=== PATIENT | male | born 1950 | race Caucasian/White ===

== ENCOUNTER → 2017-12-02 10:19 | Outpatient (POV) | payer MEDICARE, OTHER, SELFPAY ==
[2017-12-02 10:37] VITALS: BP 124/85; PULSE 77; RESP 18; TEMP 36.4; O2SAT 96
--- NOTE | 2017-12-02 12:05 | HMH.PMCON ---
Assessment and Plan (1) Post laminectomy syndrome Current visit: Yes Status: Chronic Category: Medical Code(s): M96.1 - Postlaminectomy syndrome, not elsewhere classified (2) Degenerative joint disease (DJD) of lumbar spine Current visit: Yes Status: Chronic Category: Medical Code(s): M47.816 - Spondylosis without myelopathy or radiculopathy, lumbar region (3) Lumbar radiculopathy Current visit: Yes Status: Chronic Category: Medical Code(s): M54.16 - Radiculopathy, lumbar region (4) Degenerative joint disease of cervical spine Current visit: Yes Status: Chronic Category: Medical Code(s): M47.812 - Spondylosis without myelopathy or radiculopathy, cervical region - Assessment and plan all Dx Assessment and Plan for all problems:: Patient and I had a long discussion about potential therapies. I gave him information on both neuro stimulation and pain pump. I do believe her neurostimulator may be more beneficial for him due to the fact that he can cover both neck and back pain and leg pain. Patient states he wants to discuss this with Dr. Ware. Told the patient he is welcome to call us if he decides to move forward with either of these therapies Or has any questions. This note was dictated using voice recognition software and may contain errors or omissions HPI - Data of Consult Consult date: 12/02/17 Requesting Physician: Edyta Starr APRN Primary Care Provider: Gregorio Ware MD Family Provider: Referral Provider, MD - Consult Narrative Reason for consult: Back pain, right leg pain, neck pain History of present illness: Mr. Dave is a 67 year old male a for consultation for neck pain, low back pain right leg pain. Patient states the pain began gradually got worse after back surgery. Patient states that sitting in certain chairs increases pain while standing or walking decreases pain. Patient was seen by Dr. Carrero for pain management in the past. Dr. Russell plan of care included neuro stimulation. Patient states that he was told because he smokes there is only a 5% chance that neurostimulation would work. I tried to discuss this with the patient however he states he has read all of the information about stimulation and he is unsure if this is something he would like to look into. We also discussed the pain pump. Patient is unsure he wants to come off of his pain medication prior to this. Patient has states he has tried injective therapy in the past without any success. Patient currently being medically managed by his PCP with [place] 7.5 mg 1 p.o. 4 times daily. Patient states that this does not help much. Patient rates his pain a 7 out of 10 today stating that it is constant. CC: Edyta Starr APRN [facility] History I have reviewed the patient's past medical history: Yes Medical History: Reports:: Hypertension Denies:: Cancer, Diabetes Mellitus Type 1, Diabetes Mellitus Type 2, MRSA Other Medical History: Reports: Arthritis Other Surgeries: Yes: Cardiac Catheterization Amputation: No Fractures: No - *Social History Educational Level: Completed High School Smoking Status: Never smoker Tobacco Type: cigarettes Alcohol Intake: never Occupational Status: retired Housing: house Household Members: spouse - Psychiatric History Expresses thoughts of harming self/others: None Suicide Plan Description: No Plan *Family Hx:: Cancer, Hyperlipidemia, Hypertension Review of Systems - Review of Systems ROS General: no recent weight change, no fever, no sleep disturbances Respiratory: no cough, no shortness of air, no recurring pulmonary infections Cardiovascular/Peripheral Vascular: No chest pain, No palpitations, no edema, no shortness of breath. Gastrointestinal: no incontinence, normal bowel movements reported Genitourinary: no incontinence Musculoskeletal: Back pain, right leg pain, neck pain Psychiatric: normal mood/ affect, Neurological: [denies weakness in
--- NOTE | 2017-12-02 12:11 | P.CONS_ITS ---
Assessment and Plan (1) Post laminectomy syndrome Current visit: Yes Status: Chronic Category: Medical Code(s): M96.1 - Postlaminectomy syndrome, not elsewhere classified (2) Degenerative joint disease (DJD) of lumbar spine Current visit: Yes Status: Chronic Category: Medical Code(s): M47.816 - Spondylosis without myelopathy or radiculopathy, lumbar region (3) Lumbar radiculopathy Current visit: Yes Status: Chronic Category: Medical Code(s): M54.16 - Radiculopathy, lumbar region (4) Degenerative joint disease of cervical spine Current visit: Yes Status: Chronic Category: Medical Code(s): M47.812 - Spondylosis without myelopathy or radiculopathy, cervical region - Assessment and plan all Dx Assessment and Plan for all problems:: Patient and I had a long discussion about potential therapies. I gave him information on both neuro stimulation and pain pump. I do believe her neurostimulator may be more beneficial for him due to the fact that he can cover both neck and back pain and leg pain. Patient states he wants to discuss this with Dr. Ware. Told the patient he is welcome to call us if he decides to move forward with either of these therapies Or has any questions. This note was dictated using voice recognition software and may contain errors or omissions HPI - Data of Consult Consult date: 12/02/17 Requesting Physician: Edyta Starr APRN Primary Care Provider: Gregorio Ware MD Family Provider: Referral Provider, MD - Consult Narrative Reason for consult: Back pain, right leg pain, neck pain History of present illness: Mr. Dave is a 67 year old male a for consultation for neck pain, low back pain right leg pain. Patient states the pain began gradually got worse after back surgery. Patient states that sitting in certain chairs increases pain while standing or walking decreases pain. Patient was seen by Dr. Carrero for pain management in the past. Dr. Russell plan of care included neuro stimulation. Patient states that he was told because he smokes there is only a 5% chance that neurostimulation would work. I tried to discuss this with the patient however he states he has read all of the information about stimulation and he is unsure if this is something he would like to look into. We also discussed the pain pump. Patient is unsure he wants to come off of his pain medication prior to this. Patient has states he has tried injective therapy in the past without any success. Patient currently being medically managed by his PCP with [place] 7.5 mg 1 p.o. 4 times daily. Patient states that this does not help much. Patient rates his pain a 7 out of 10 today stating that it is constant. CC: Edyta Starr APRN [facility] History I have reviewed the patient's past medical history: Yes Medical History: Reports:: Hypertension Denies:: Cancer, Diabetes Mellitus Type 1, Diabetes Mellitus Type 2, MRSA Other Medical History: Reports: Arthritis Other Surgeries: Yes: Cardiac Catheterization Amputation: No Fractures: No - *Social History Educational Level: Completed High School Smoking Status: Never smoker Tobacco Type: cigarettes Alcohol Intake: never Occupational Status: retired Housing: house Household Members: spouse - Psychiatric History Expresses thoughts of harming self/others: None Suicide Plan Description: No Plan *Family Hx:: Cancer, Hyperlipidemia, Hypertension Review of Systems - Review of Systems ROS General: no recent weight change, no fever, no sleep disturbances Respiratory: no cough, no shortness of air
== END ==
PROVIDERS: PCP Internal Medicine Adolescent Medicine; Visit Provider Clinical Nurse Specialist Family Health
DX: M47.816 Spondylosis without myelopathy or radiculopathy, lumbar region (principal)
CPT/HCPCS: 99202

== ENCOUNTER 2018-09-23 09:00 | Outpatient (RCR) | payer MEDICARE, OTHER, SELFPAY | END 2018-09-23 09:05 | disposition home or self-care (01) | LOC: OT 09:00 | PROVIDERS: Visit Provider Orthopaedic Surgery Hand Surgery | DX: M47.816 Spondylosis without myelopathy or radiculopathy, lumbar region (principal); M96.1 Postlaminectomy syndrome, not elsewhere classified | CPT/HCPCS: 97035; 97110; 97140; 97165 ==

== ENCOUNTER → 2018-10-07 10:38 | Outpatient (CLI) | payer MEDICARE, OTHER, SELFPAY ==
--- NOTE | 2018-10-07 10:43 | CT_ITS ---
CT lung screening EXAM: CT LUNG LOW DOSE WO CONTRAST HISTORY: 100 pack-year smoking history, asymptomatic for lung cancer ITS.REASON: H/O TOBACCO DEPENDENCE ORDERING PHYSICIAN: Gregorio Ware MD PATIENT AGE: 68 years COMPARISON: 06/15/2016 TECHNIQUE: The exam was performed on a GE Light Speed [address] scanner using 2.90 mGy CTDI. A low dose helical CT CHEST was performed on a multi-detector scanner. All CT scans at the facility use one or more dose reduction, viz: automated exposure control, ma/kV adjustment per patient size (including targeted exams where dose is matched to indication, i.e. head), or iterative reconstruction technique. The LDCT was performed in a facility that meets the criteria for the screening program. Data regarding this exam was submitted to ACR which is an approved registry. The order for this exam indicates that it came as a result of a lung cancer screening counseling shard decision-making visit that included all the elements required of such a visit including smoking cessation. The radiologist interpreting this exam meets the CMS criteria for the LDCT lung cancer screening program. The exam is reported using the Lung-RADS classification scale and reported to the ACR registry. NOTE: This study was performed for the specific purposes of lung cancer screening and is not an alternative to diagnostic chest CT. RADIATION DOSE: CTDI vol(CT dose Index-volume) = 2.90mG DLP (Dose Length Product) = 119.20 mGcm FINDINGS: Hyperinflation with attenuation of the peripheral pulmonary vessels consistent with obstructive chronic bronchitis. Nodules within the right minor fissure similar to the previous exam. A stable subpleural nodules present within the lingula at 5 mm. No new nodules are evident. Coronary artery calcifications are noted.. IMPRESSION: 1. Lung RADS Category: 2, benign 2. Other findings: Coronary artery calcifications, COPD RECOMMENDATIONS: 12 month LDCT follow-up
== END ==
PROVIDERS: PCP Internal Medicine Adolescent Medicine; Visit Provider Internal Medicine Adolescent Medicine
DX: Z12.2 Encounter for screening for malignant neoplasm of respiratory organs (principal); Z87.891 Personal history of nicotine dependence

== ENCOUNTER → 2019-10-09 08:02 | Outpatient (CLI) | payer MEDICARE, OTHER, SELFPAY ==
--- NOTE | 2019-10-09 08:06 | CT_ITS ---
PROCEDURE: CT LUNG SCREENING CLINICAL INDICATION: CURRENT TOBACCO USE COMPARISON: No exams were available for comparison TECHNIQUE: The exam was performed on a GE Light Speed [address] scanner using 2.90 mGy CTDI. A low dose helical CT CHEST was performed on a multi-detector scanner. All CT scans at the facility use one or more dose reduction, viz: automated exposure control, ma/kV adjustment per patient size (including targeted exams where dose is matched to indication, i.e. head), or iterative reconstruction technique. The LDCT was performed in a facility that meets the criteria for the screening program. Data regarding this exam was submitted to ACR which is an approved registry. The order for this exam indicates that it came as a result of a lung cancer screening counseling shard decision-making visit that included all the elements required of such a visit including smoking cessation. The radiologist interpreting this exam meets the CMS criteria for the LDCT lung cancer screening program. The exam is reported using the Lung-RADS classification scale and reported to the ACR registry. NOTE: This study was performed for the specific purposes of lung cancer screening and is not an alternative to diagnostic chest CT. RADIATION DOSE: CTDI vol(CT dose Index-volume) = 2.90mG DLP (Dose Length Product) = 112.29 mGcm Lung Rads Category: Three FINDINGS: There is a calcified granuloma in the left upper lobe compatible with healed granulomatous disease. There are scattered noncalcified pulmonary nodules largest 1 in the anterior right lung base is 6.6 millimeters as seen on image 52 series 4. The noncalcified nodules could represent granulomas. Neoplastic disease is not excluded. There are some densities in the inferior lingula which are likely scarring. OTHER FINDINGS: There is atherosclerosis including coronary calcification. There is fatty infiltration of the liver. IMPRESSION: Lung rads score 3 probably benign six-month low-dose CT follow-up is recommended. Dictated by: Mega Braden 10/10/2019 10:58 Electronically signed by Mega Braden in [place] 10/10/2019 10:58
== END ==
PROVIDERS: PCP Internal Medicine Adolescent Medicine; Visit Provider Internal Medicine Adolescent Medicine
DX: Z87.891 Personal history of nicotine dependence (principal); Z12.2 Encounter for screening for malignant neoplasm of respiratory organs

== ENCOUNTER → 2020-04-13 12:45 | Outpatient (CLI) | payer MEDICARE, OTHER, SELFPAY ==
--- NOTE | 2020-04-13 12:57 | CT_ITS ---
PROCEDURE: CT CHEST W CON CLINCAL INDICATION: PULMONARY NODULE PULMONARY NODULE CURRENT SMOKER COMPARISON: CT CT LUNG SCREENING from 10/09/2019 TECHNIQUE: IV Contrast: 75ml Optiray 350 Axial images obtained with sagittal and coronal reformats. All CT scans at the facility use one or more dose reduction, viz: automated exposure control, ma/kV adjustment per patient size (including targeted exams where dose is matched to indication, i.e. head), or iterative reconstruction technique. FINDINGS: There is mild ectasia of the descending thoracic aorta at 3 cm. No mediastinal or hilar mass or adenopathy. There are coronary artery calcifications. COPD changes. 6 mm noncalcified nodule is noted along the right minor fissure anteriorly not significantly changed. Additional 5 mm nodules present in the same area slightly medial to the 6 mm nodule. No new nodules are evident. A 3 mm noncalcified nodules present in the right upper lobe unchanged. No new nodules are evident. No effusions or infiltrates. No acute bony findings. Upper abdominal images are unremarkable. IMPRESSION: Overall stable CT appearance of the chest. No change in the small pulmonary nodules. Recommend continued LDCT in 1 year. Dictated by: David Copeland MD 04/14/2020 10:20 David Copeland MD in [place] 04/14/2020 10:20
[2020-04-13 13:30] LABS: Blood Urea Nitrogen 11 mg/dl (9-20); Estimated Glomerular Filt Rate 54 ml/min (>60); GFR (African American) 66 ML/MIN (>60)
== END ==
PROVIDERS: PCP Internal Medicine Adolescent Medicine; Visit Provider Internal Medicine Adolescent Medicine
DX: R91.1 Solitary pulmonary nodule (principal)
CPT/HCPCS: 36415; 71260; 82565; 84520; Q9967

== ENCOUNTER → 2020-10-17 09:42 | Outpatient (CLI) | payer MEDICARE, OTHER, SELFPAY ==
--- NOTE | 2020-10-17 09:47 | MR_ITS ---
PROCEDURE: MR LUMBAR SPINE WO/W CON CLINICAL INDICATION: LUMBAR NEURALGIA HX 3 BACK SURGERIES-LAST ONE IN 2000. RT LEG AND HIP PAIN. NEW ONSET OF INTERMITTENT LT LEG AND FOOT PAIN. LT SIDED BACK PAIN. 20ML PROHANCE GIVEN. LOT:[id number] EXP: OCT 2022 BUN:11 CRE:1.3 GFR:54 PRIOR MRI 11-03-15 COMPARISON: MR [facility] MRI-L-SPINE W/WO from 11/03/2015 MR [facility] MRI-BRAIN W/WO from 06/14/2016 TECHNIQUE: Standard multiplanar multiecho sequences are performed without and with contrast. 3-D MIP and myelographic images are also rendered and reviewed FINDINGS: There is normal alignment. The spinal cord ends at the L1-L2 level. T11-T12, T12-L1, L1-L2, and L2-L3 show mild degenerative disc disease. There is mild facet hypertrophic change at L2-L3 with mild left lateral recess narrowing. This is not significantly changed. L3-L4: Degenerative disc disease with minimal bulging disc with facet and ligamentum hypertrophy with mild bilateral lateral recess and foraminal narrowing not significantly changed. L4-5: There is a small left paracentral disc protrusion/herniation. There is severe facet and ligamentum hypertrophy with canal stenosis. There is severe left lateral recess narrowing and moderate bilateral foraminal narrowing from facet and ligamentum hypertrophy. The degree of canal stenosis appears worse than when compared to the previous exam. The left paracentral disc protrusion may be slightly larger. L5-S1: Postsurgical changes with inter pedicular screws are present with considerable artifact obscuring fine detail of the disc space. No abnormal enhancement. No convincing evidence of epidural fibrosis or arachnoiditis IMPRESSION: 1. Multilevel lumbar spondylosis. Please see above for detailed description at each level. 2. L3-L4: Degenerative disc disease with minimal bulging disc with facet and ligamentum hypertrophy with mild bilateral lateral recess and foraminal narrowing not significantly changed. 3. L4-5: There is a small left paracentral disc protrusion/herniation. There is severe facet and ligamentum hypertrophy with canal stenosis. There is severe left lateral recess narrowing and moderate bilateral foraminal narrowing from facet and ligamentum hypertrophy. The degree of canal stenosis appears worse than when compared to the previous exam. The left paracentral disc protrusion may be slightly larger. 4. L5-S1: Postsurgical changes with inter pedicular screws are present with considerable artifact obscuring fine detail of the disc space. 5. No abnormal enhancement. No convincing evidence of epidural fibrosis or arachnoiditis Dictated by: David Copeland MD 10/20/2020 08:01 David Copeland MD in [place] 10/20/2020 08:01
== END ==
PROVIDERS: PCP Internal Medicine Adolescent Medicine; Visit Provider Internal Medicine Adolescent Medicine
DX: M54.16 Radiculopathy, lumbar region (principal)
CPT/HCPCS: 72158; 76376; A9576

== ENCOUNTER → 2020-10-28 10:57 | Outpatient (POV) | payer MEDICARE, OTHER, SELFPAY ==
[2020-10-28 11:51] VITALS: BP 164/90; PULSE 113; RESP 20; TEMP 36.4; O2SAT 100; BMI 27.6
--- NOTE | 2020-10-28 13:19 | HMH.PMCON ---
Assessment and Plan (1) Post laminectomy syndrome Status: Chronic Category: Medical Code(s): M96.1 - Postlaminectomy syndrome, not elsewhere classified (2) Degenerative joint disease (DJD) of lumbar spine Status: Chronic Category: Medical Code(s): M47.816 - Spondylosis without myelopathy or radiculopathy, lumbar region (3) Lumbar radiculopathy Status: Chronic Category: Medical Code(s): M54.16 - Radiculopathy, lumbar region - Assessment and plan all Dx Assessment and Plan for all problems:: We will plan on intrathecal pump trial next week. I will have him wean down on his [place] he is not to have any [place] 48 hours prior to the trial. We will obtain psychological evaluation as soon as possible. He is leaving for [place] in a couple weeks so we will plan on intrathecal pump trial prior to his psychological evaluation. I talked about the risk and benefits of this patient. I do believe he would be a good candidate for intrathecal therapy. HPI - Data of Consult Patient: new to practice Consult date: 10/28/20 Requesting Physician: Carlos Arizmendi MD Primary Care Provider: Gregorio Ware MD - Consult Narrative Reason for consult: Low back pain History of present illness: Mr. Dave is a 70 year old male who we are seeing for increasing low back pain. He has had 3 previous back surgeries. He has had injections with no relief. He is not on any narcotic medications. He has taken gabapentin and Lyrica both of which have not helped. He has basically failed all previous conservative treatments. Given his symptoms where most of his pain is in the back with very little radicular symptoms I do believe he would be a good candidate for intrathecal therapy. He is currently on [place] 4 times a day. I talked to him about weaning down his [place] in preparation for intrathecal pump trial. CC: Carlos Arizmendi MD [facility] History I have reviewed the patient's past medical history: Yes Medical History: Reports:: Hypertension Denies:: Cancer, Diabetes Mellitus Type 1, Diabetes Mellitus Type 2, Internal Pacemaker, Lung Disease, MRSA, Seizures *Have you ever received a pneumonia vaccine?: Yes *Have you received a flu vaccine this season?: Yes Other Medical History: Reports: Arthritis. Denies: Blood Transfusion Reaction Other Surgeries: Yes: Cardiac Catheterization, Other (left hand). No: Pacemaker Amputation: No Fractures: No - *Social History Smoking Status: Current every day smoker Tobacco Type: cigarettes # Packs/Day (cigarettes): 2 Alcohol Intake: never Substance Use Type: denies use *Occupational Status:: retired Housing: house Household Members: other *Travel in the last 8 weeks: None Family Hx:: Cancer, Hyperlipidemia, Hypertension Review of Systems - Review of Systems Review of systems:: pertinent systems reviewed and negative unless documented below - *Musculoskeletal Reports back pain, Reports numbness, Reports radiating pain into limb, Reports stiffness Meds Home Medications Medication Instructions Recorded Confirmed Type Baclofen 20 mg PO TID 12/02/17 10/28/20 History Hydrocodone/Acetaminophen 1 each PO QID 12/02/17 10/28/20 History [Hydrocodon-Acetaminoph 7.5-325] Levothyroxine Sodium 125 mcg PO DAILY 12/02/17 10/28/20 History [Levothyroxine 200mcg (0.2mg) Tab] Omeprazole [Omeprazole 20mg Tab] 20 mg PO DAILY 12/02/17 10/28/20 History Tamsulosin HCl [Flomax 0.4mg 0.4 mg PO HS 12/02/17 10/28/20 History capsule] lisinopriL [Lisinopril 20mg Tab] 20 mg PO DAILY 12/02/17 10/28/20 History Allergies Allergy/AdvReac Type Severity Reaction Status Date / Time morphine Allergy Intermediate I-ITCHING Verified 10/28/20 11:52 duloxetine [From Cymbalta] AdvReac Verified 10/28/20 11:52 gabapentin AdvReac Verified 10/28/20 11:52 pregabalin [From Lyrica] AdvReac Verified 10/28/20 11:52 Objective Vital signs: Temp Pulse Resp BP Pulse Ox 97.6 F 113 H 20 164/90 H 100 10/28/20 11
== END ==
PROVIDERS: PCP Internal Medicine Adolescent Medicine; Visit Provider Anesthesiology
DX: M96.1 Postlaminectomy syndrome, not elsewhere classified (principal); M47.896 Other spondylosis, lumbar region; M54.16 Radiculopathy, lumbar region
CPT/HCPCS: 99202; G0463

== ENCOUNTER → 2020-11-04 08:19 | Day surgery (SDC) | payer MEDICARE, OTHER, SELFPAY ==
[2020-11-04] VITALS (9 sets, daily range): BP systolic 123–188; BP diastolic 66–93; PULSE 89–115; RESP 18–22; TEMP 36.1; O2SAT 96–99; BMI 27.6
--- NOTE | 2020-11-04 09:48 | HMH.PMPROC ---
- Procedure Date: 11/04/20 Time: 09:49 Anesthesiologist:: Carlos Arizmendi MD Complications:: None Pre-procedure Diagnosis:: Postlaminectomy syndrome lumbar spine with lumbar radiculopathy symptoms and degenerative disc disease of lumbar spine Post-procedure Diagnosis:: Same Indications for Procedure:: The patient is a pleasant 70-year-old white male who we are treating for low back pain with lumbar radiculopathy symptoms and degenerative disc disease of lumbar spine with postlaminectomy syndrome lumbar spine. He has failed all previous conservative therapy including previous surgery, physical therapy, injections and oral medications. He has weaned down on his [place]. He presents for intrathecal pump trial today. We are also getting a psychological evaluation on him. Procedure Details:: Pain pump trial Informed consent was obtained and the risk and benefits of the procedure was explained to the patient. The patient was taken to the procedure room and placed prone on the procedure table. Patient was prepped and draped in sterile fashion. C-arm fluoroscopy was used to view the lumbar spine. The skin and subcutaneous tissues were anesthetized using lidocaine. I placed a 18-gauge spinal needle into the L4-5 interspace and advanced until clear CSF was obtained. After this intrathecal catheter was inserted and advanced very easily to the L1 vertebral body. The needle was withdrawn. We were able to freely withdraw clear CSF through the catheter. We then injected intrathecal fentanyl single shot bolus of 25 mcg followed by saline and followed by the previous CSF that was withdrawn. The needle and catheter were then removed and a Band-Aid was placed. Patient tolerated the procedure well with no complications. We reevaluated the patient after 30 minutes to 1 hour. He was also reassessed by physical therapy. Patient did well with his pain he was 70 to 80% better. Also functionality improved physical therapy assessments were much improved. Patient is leaving for [place] next week he wants to think about permanent placement we will follow-up with him when he returns from [place]. Plan and Disposition:: Patient did very well. He is leaving for [place] next week. He wants to think about whether to proceed with permanent placement. We will follow-up with him when he returns from [place].
--- NOTE | 2020-11-04 11:22 | PC.NURSE ---
0900-PT at bedside for evaluation 0940-pt returned from procedure room via w/c, accompanied by nursing staff. pt assisted to chair. VSS, c/o pain 7 on scale of 0-10. offered pt PO fluids, pt agreeable. pt also requested something for itching. see emar for medications given. 0955-pt resting in chair. VSS, tolerating PO intake without complaints. rates pain 5 on scale 0-10 1010-pt resting in chair. VSS, rates pain 5 on scale of 0-10. states itching has eased. no needs or concerns at this time. 1030-pt resting in chair. VSS, rates pain 4 on scale of 0-10. no needs or concerns at this time. 1050-pt resting in choco. VSS, rates pain 4 on scale of 0-10. no needs or concerns at this time 1056-PT at bedside for evaluation 1100-Dr Arizmendi at bedside.
== END ==
PROVIDERS: PCP Internal Medicine Adolescent Medicine; Visit Provider Anesthesiology
DX: M96.1 Postlaminectomy syndrome, not elsewhere classified (principal); M51.16 Intervertebral disc disorders with radiculopathy, lumbar region; I10 Essential (primary) hypertension; N40.0 Benign prostatic hyperplasia without lower urinary tract symptoms; K21.9 Gastro-esophageal reflux disease without esophagitis; E03.9 Hypothyroidism, unspecified
CPT/HCPCS: 62323; 96365

== ENCOUNTER → 2020-12-13 11:20 | Outpatient (CLI) | payer MEDICARE, OTHER, SELFPAY ==
[2020-12-13 11:52] LABS: Basophils % 0.5 % (0.1-2.0); Eosinophils # 0.1 K/mm3 (0.0-0.4); Eosinophils % 1.5 % (0.1-12.0); Hematocrit 42.8 % (42.0-52.0); Hemoglobin 14.5 g/dL (14.1-18.0); Lymphocytes # 1.8 K/mm3 (0.7-4.5); Lymphocytes % 27.8 % (10-50); Mean Corpuscular HGB Conc 33.9 g/dL (31.8-35.4); Mean Corpuscular Hemoglobin 32.8 pg (27.0-31.2); Mean Corpuscular Volume 96.8 fl (80-94); Mean Platelet Volume 7.8 fl (7.4-10.4); Monocytes # 0.4 K/mm3 (0.1-1.0); Monocytes % 5.7 % (1.7-9.3); Neutrophils # 4.1 K/mm3 (1.8-7.8); Neutrophils % 64.4 % (37.0-80.0); Platelet Count 208 K/mm3 (142-424); Red Blood Count 4.42 M/mm3 (4.60-6.20); Red Cell Distribution Width 13.4 % (11.5-17.5); White Blood Count 6.3 K/mm3 (4.8-10.8)
[2020-12-13 12:07] LABS: Chloride 99 mmol/L (98-107); Potassium 4.5 mmoL/L (3.5-5.1); Sodium 137 mmol/L (136-145)
[2020-12-13 12:10] LABS: Anion Gap 16.5 mEq/L (5-15); Blood Urea Nitrogen 12 mg/dl (9-20); Carbon Dioxide 26 mmol/L (22.0-30.0); Estimated Glomerular Filt Rate 66 ml/min (>60); GFR (African American) 80 ML/MIN (>60)
[2020-12-13 12:11] LABS: Calcium 10.2 mg/dl (8.4-10.2); Glucose 131 mg/dl (74-100)
[2020-12-13 12:15] LABS: Barbiturates Screen,Urine Negative ng/ml (<200); Benzodiazepines Screen,Urine Negative ng/ml (<200)
[2020-12-13 12:16] LABS: Amphetamine/Metha Screen,Urine Negative ng/ml (<1000)
[2020-12-13 12:17] LABS: Methadone Screen,Urine Negative ng/ml (<300)
[2020-12-13 12:18] LABS: Cannabinoid Screen,Urine Negative ng/ml (<50); Cocaine Screen,Urine Negative ng/ml (<300)
[2020-12-13 12:19] LABS: Opiate Screen,Urine Positive ng/ml (<300)
[2020-12-13 12:20] LABS: Phencyclidine Screen,Urine Negative ng/ml (<25)
[2020-12-13 12:27] LABS: Coronavirus 19 IgG Antibody Positive (Negative); Coronavirus 19 IgM Antibody Negative (Negative)
== END ==
PROVIDERS: Visit Provider Anesthesiology
DX: Z01.812 Encounter for preprocedural laboratory examination (principal); Z20.822 Contact with and (suspected) exposure to COVID-19; M51.36 Other intervertebral disc degeneration, lumbar region
CPT/HCPCS: 36415; 80048; 80305; 85025; 86328

== ENCOUNTER 2020-12-14 08:24 | Day surgery (SDC) | payer MEDICARE, OTHER, SELFPAY ==
[2020-12-13 09:43] VITALS: BMI 27.6
[2020-12-14] VITALS (7 sets, daily range): BP systolic 95–134; BP diastolic 48–86; PULSE 79–97; RESP 16–18; TEMP 36.3–36.7; O2SAT 95–99
--- NOTE | 2020-12-14 10:10 | HMH.PMCON ---
Assessment and Plan - Assessment and plan all Dx Assessment and Plan for all problems:: Impression-degenerative disc disease of the lumbar spine with radiculopathy Plan-placement of intrathecal pain pump system today HPI - Data of Consult Patient: new to practice Consult date: 12/14/20 Requesting Physician: Carlos Arizmendi MD Primary Care Provider: Gregorio Ware MD - Consult Narrative Reason for consult: Disc disease of the lumbar spine with radiculopathy History of present illness: Mr. Dave is a 70 year old male 70-year-old white male with chronic back issues has had back surgery. Patient had a intrathecal pain pump trial with significant improvement and comes in today for placement of that system CC: Carlos Arizmendi MD Back pain [facility] History I have reviewed the patient's past medical history: Yes Medical History: Reports:: Hypertension Denies:: Cancer, Diabetes Mellitus Type 1, Diabetes Mellitus Type 2, Internal Pacemaker, Lung Disease, MRSA, Seizures *Have you ever received a pneumonia vaccine?: Yes *Have you received a flu vaccine this season?: Yes Other Medical History: Reports: Arthritis. Denies: Blood Transfusion Reaction Other Surgeries: Yes: Cardiac Catheterization, Other (left hand). No: Pacemaker Amputation: No Fractures: No Comment: Back surgery x3, left hand surgery - *Social History Last grade of school completed: High school graduate Smoking Status: Current every day smoker Tobacco Type: cigarettes # Packs/Day (cigarettes): 2 Alcohol Intake: never Substance Use Type: denies use *Occupational Status:: retired Housing: house Household Members: spouse *Travel in the last 8 weeks: None Family Hx:: Cancer, Hyperlipidemia, Hypertension Meds Home Medications Medication Instructions Recorded Confirmed Type Baclofen 20 mg PO TID 12/02/17 12/14/20 History Hydrocodone/Acetaminophen 1 each PO QID 12/02/17 12/14/20 History [Hydrocodon-Acetaminoph 7.5-325] Levothyroxine Sodium 125 mcg PO DAILY 12/02/17 12/14/20 History [Levothyroxine 200mcg (0.2mg) Tab] Omeprazole [Omeprazole 20mg Tab] 20 mg PO DAILY 12/02/17 12/14/20 History Tamsulosin HCl [Flomax 0.4mg 0.4 mg PO HS 12/02/17 12/14/20 History capsule] lisinopriL [Lisinopril 20mg Tab] 20 mg PO DAILY 12/02/17 12/14/20 History Allergies Allergy/AdvReac Type Severity Reaction Status Date / Time morphine Allergy Intermediate I-ITCHING Verified 12/13/20 09:43 duloxetine [From Cymbalta] AdvReac Verified 12/13/20 09:43 gabapentin AdvReac Verified 12/13/20 09:43 pregabalin [From Lyrica] AdvReac Verified 12/13/20 09:43 Objective Vital signs: Temp Pulse Resp BP Pulse Ox 97.3 F L 97 H 16 134/67 98 12/14/20 09:16 12/14/20 09:16 12/14/20 09:16 12/14/20 09:16 12/14/20 09:16
--- NOTE | 2020-12-14 10:45 | P.PN_ITS ---
[facility] Anesthesia Checklist - Patient Identification Patient Identification: Arm Band - Structural Data Admitted From: Home Planned Operative Procedure/s: Intracthecal Pain Pump Catheter and Generator Placement Consent for Planned Operative Procedure(s) Verified: Yes Verified Documents: Surgical Consent, History and Physical - NPO Status Verified Time NPO: 00:00 - Additional verifications Anesthesia Reactions: No Hx Blood Transfusions: No Blood Transfusion Reaction: No - Airway Assessment C-Spine Mobility Assessed: Yes (mp2) TMJ Mobility Assessed: Yes Dentition: Good Dentition (upper dentures) - Neurological Assessment Level of Consciousness: Awake, Alert - Anesthesia Plan Anesthesia Risk discussed: Yes Anesthesia Plan: Verified ASA Class: II Anesthesia Type: MAC [facility] History I have reviewed the patient's past medical history: Yes Medical History: Reports:: Gastroesophageal Reflux Disease(GERD), Hypertension Denies:: Cancer, Diabetes Mellitus Type 1, Diabetes Mellitus Type 2, Internal Pacemaker, Lung Disease, MRSA, Seizures *Have you ever received a pneumonia vaccine?: Yes *Have you received a flu vaccine this season?: Yes Other Medical History: Reports: Arthritis, Hypothyroidism. Denies: Blood Transfusion Reaction Anesthesia experience/problems:: nac Other Surgeries: Yes: Cardiac Catheterization, Other (left hand). No: Pacemaker Amputation: No Fractures: No - *Social History Last grade of school completed: High school graduate Smoking Status: Current every day smoker Tobacco Type: cigarettes # Packs/Day (cigarettes): 2 Alcohol Intake: never Substance Use Type: denies use *Occupational Status:: retired Housing: house Household Members: spouse *Travel in the last 8 weeks: None Family Hx:: Cancer, Hyperlipidemia, Hypertension
--- NOTE | 2020-12-14 12:25 | P.OP_ITS ---
Date of procedure: 12/14/20 Pre-op Diagnosis:: Degenerative disc disease of the lumbar spine with radiculopathy Post-op Diagnosis:: Same Procedure performed:: Placement of pain pump generator Surgeon:: Skyler Orta MD DIRECTOR OF COMMUNITY EDUCATION:: Clement Paz, Gregorio Basilio, Jorge Kang, Reza Rogers, Other Anesthesia: MAC Estimated blood loss (mL): 5 Operative findings:: Not applicable Operative note:: Patient was placed prone on the operating table and his back and flank regions were prepped and draped in sterile fashion. Paraspinal incision was made by Dr. Villalpando which an intrathecal catheter was passed into the intrathecal space to the area desired by Dr. Lewis. The catheter was sutured to the paraspinal fascia with fixation devices and 2-0 Prolene suture. A right flank incision was made in which made for pocket for placement of the reservoir. Both incisions irrigated with antibiotic solution. The catheter was passed from the paraspinal incision to the pocket incision utilizing a tunneling device. The catheter was connected to the generator and placed in the pocket. CSF was aspirated from the generator noting patency of the system. Subcutaneous tissues closed with 2-0 Vicryl. Skin closed with stitches of 4-0 nylon. Wound VAC dressing and a binder applied to the wound. The patient tolerated procedure well was taken to recovery room in stable condition. Upon recovery the patient will be discharged home with follow-up 1 week for removal of the wound VAC system and in 2 weeks for removal of the sutures. Antibiotic x1 week per protocol. The patient again tolerated the procedure well Condition: stable Disposition: PACU Complications:: None
--- NOTE | 2020-12-14 12:42 | P.OP_ITS ---
Date of procedure: 12/14/20 Pre-op Diagnosis:: Postlaminectomy syndrome of lumbar spine with lumbar radiculopathy symptoms and degenerative disc disease of lumbar spine Post-op Diagnosis:: Same Procedure performed:: Intrathecal catheter placement with tunneling for permanent intrathecal pain pump Surgeon:: Carlos Arizmendi MD [employer] PLAN SALESPERSON:: Other Anesthesia: MAC Estimated blood loss (mL): 5 Clinical Note:: Patient is a pleasant 70-year-old white male who we are treating for low back pain with lumbar radiculopathy symptoms and degenerative disc disease of lumbar spine with postlaminectomy syndrome. He has had a previous fusion of L5 and S1. He continues have increasing back pain with some leg pain. He has failed all previous conservative therapy including injections, oral medications, physical therapy and previous surgery. He is weaned off of his oral Wesley. He had a successful psychological evaluation and a successful intrathecal pump trial. He presents for permanent placement today. Operative findings:: None Operative note:: Informed consent was obtained and the risk and benefits of the procedure was explained to the patient. Patient was taken to the operating room placed prone on the procedure table. He was prepped and draped in sterile fashion. C-arm fluoroscopy was used to view the lumbar spine. The skin and subcutaneous tissues adjacent to the L4-5 interspace were anesthetized using lidocaine. I made an incision and dissected down to the lumbar paraspinous fascia. A 14-g auge spinal needle was inserted and advanced into the L4-5 interspace until clear CSF was obtained. After this intrathecal catheter was inserted and advanced very easily to the T12 vertebral body. The stylette of the catheter and the needle were withdrawn. The catheter was secured to the fascia with 2 anchoring devices and 2-0 Prolene. I prepared the pump with 20 mL of intrathecal Dilaudid 1 mg/mL while Dr. Orta prepared the pump pocket. I tunneled the catheter from the back to the pump pocket and attached catheter to the pump. The pump was placed in the pocket. We were able to freely withdraw clear CSF through the side-port. Both incisions were irrigated with bacitracin and then closed with 2-0 Vicryl followed by 4-0 nylon. A wound VAC was placed over both incisions. The patient was placed in an abdominal binder and taken recovery in stable condition. Patient tolerated the procedure well with no complications. Pump was interrogated and started at 0.1 mg/day of intrathecal Dilaudid. Patient was discharged home neurologically intact and with good relief of pain symptoms. Plan and disposition: We will follow-up with this patient in 1 week for wound check. We will follow-up in 2 weeks for suture removal and adjustment of intrathecal infusion if needed. If he has any problems or questions he is to call us back in the pain clinic. Condition: stable Disposition: PACU Complications:: None
--- NOTE | 2020-12-14 14:39 | SUR.PHASEII ---
1250: pt. is combative, unaware of his actions. Call to Carmelita Martinez CRNA ordered 1 mg versed IV now.
== END 2020-12-14 14:10 | disposition home or self-care (01) ==
LOC: OR 08:25
PROVIDERS: PCP Internal Medicine Adolescent Medicine; Visit Provider Anesthesiology
DX: M96.1 Postlaminectomy syndrome, not elsewhere classified (principal); M51.16 Intervertebral disc disorders with radiculopathy, lumbar region; I10 Essential (primary) hypertension; M19.90 Unspecified osteoarthritis, unspecified site; Z87.39 Personal history of other diseases of the musculoskeletal system and connective tissue; Z72.0 Tobacco use; Z79.899 Other long term (current) drug therapy; Z88.5 Allergy status to narcotic agent; Z88.8 Allergy status to other drugs, medicaments and biological substances
CPT/HCPCS: 62350; 62362; 96374; C1755; C1772; J3370

== ENCOUNTER → 2020-12-22 09:08 | Outpatient (POV) | payer MEDICARE, OTHER, SELFPAY ==
[2020-12-22 09:33] VITALS: BP 130/61; PULSE 65; RESP 18; TEMP 36.8; O2SAT 98; BMI 27.6
--- NOTE | 2020-12-22 09:47 | HMH.PMPROC ---
- Procedure Date: 12/22/20 Time: 09:47 Anesthesiologist:: Edyta Starr APRN Complications:: None Pre-procedure Diagnosis:: Postlaminectomy syndrome lumbar spine lumbar radiculopathy symptoms and degenerative disc disease lumbar spine Post-procedure Diagnosis:: Same Indications for Procedure:: Patient is a pleasant 70-year-old white male who presents today for intrathecal pain pump adjustment. Patient had his intrathecal pain pump placed 1 week ago. Since then his prior prostate issues has gotten worse. Patient is having some urinary difficulty. Patient is currently on the max dose of Flomax. Patient currently at 0.1 mg a day of Dilaudid he rates his pain a 3 out of 10. We will decrease his intrathecal infusion slightly and set up his PTC. Procedure Details:: Informed consent was obtained and the risk and benefits of the procedure were explained to the patient. The patient was taken to the procedure room where noninvasive monitoring was placed including noninvasive blood pressure cuff and pulse oximeter. Patient's pump was interrogated and reprogrammed. The infusion rate was decreased to 0.075 mg of Dilaudid a day and his PTC was set up at 0.007 mg per activation up to 4 activations a day.. The patient tolerated the procedure well. Plan and Disposition:: We will see the patient back in 2 weeks for his stitch removal. Patient has no sign symptoms of infection. Follow-up with him at this time reassess his symptoms. He has been instructed to call the office if he has any issues prior to his next appointment. W Dr. Arizmendi has reviewed this note and agrees with this plan of care. This note was dictated using voice recognition software and may contain errors or omissions ith him afterwards reassess his
== END ==
PROVIDERS: Visit Provider Clinical Nurse Specialist Family Health
DX: M96.1 Postlaminectomy syndrome, not elsewhere classified (principal); M51.16 Intervertebral disc disorders with radiculopathy, lumbar region; Z45.1 Encounter for adjustment and management of infusion pump
CPT/HCPCS: 62368

== ENCOUNTER → 2021-01-02 10:20 | Outpatient (POV) | payer MEDICARE, OTHER, SELFPAY ==
[2021-01-02 10:24] VITALS: BP 133/85; PULSE 74; RESP 18; O2SAT 98; BMI 27.6
--- NOTE | 2021-01-02 11:05 | P.PCN_ITS ---
- Procedure Date: 01/02/21 Time: 11:05 Anesthesiologist:: Edyta Starr APRN Complications:: None Pre-procedure Diagnosis:: Degenerative disc disease lumbar spine lumbar radiculopathy, back pain, postlaminectomy syndrome Post-procedure Diagnosis:: Same Indications for Procedure:: Patient is a pleasant 70-year-old white male who presents today for intrathecal pain pump implant stitch removal. Patient's incision is well-healed no sign symptoms of infection. Patient rates his pain a 6 out of 10 we did decrease him last time due to urinary retention and this is not improved. Patient states that there is no difference and he would like to return to his original dose. Patient states he is only having difficulty at nighttime. Patient states that he is currently on Flomax and this is beneficial. Procedure Details:: Informed consent was obtained and the risk and benefits of the procedure were explained to the patient. The patient was taken to the procedure room where noninvasive monitoring was placed including noninvasive blood pressure cuff and pulse oximeter. Patient's pump was interrogated and reprogrammed. The infusion rate was increased to 0.1 mg/day. The patient tolerated the procedure well. Plan and Disposition:: We will see the patient back in 2 weeks to ensure that he is doing well. After this he would like to travel to [place]. He has been instructed to call the office if he has any issues prior to his next appointment. Dr. Arizmendi has reviewed this note and agrees with this plan of care. This note was dictated using voice recognition software and may contain errors or omissions
== END ==
PROVIDERS: Visit Provider Clinical Nurse Specialist Family Health
DX: M51.16 Intervertebral disc disorders with radiculopathy, lumbar region (principal); M96.1 Postlaminectomy syndrome, not elsewhere classified
CPT/HCPCS: 99212; G0463

== ENCOUNTER → 2021-01-16 10:05 | Outpatient (POV) | payer MEDICARE, OTHER, SELFPAY ==
[2021-01-16 10:45] VITALS: BP 125/65; PULSE 85; O2SAT 96; BMI 26.3
--- NOTE | 2021-01-16 12:37 | P.CONS_ITS ---
[facility] Pain Management SOAP Note Subjective:: Is a pleasant 70-year-old white male who presents today for follow-up. Patient is doing well with his intrathecal therapy rating his pain a 4 out of 10. He does not need any adjustments he still having some urinary hesitancy however he is currently on Flomax. Patient will be going to [place] for vacation and will be following up with us after that. ROS General: no recent weight change, no fever, no sleep disturbances Respiratory: no cough, no shortness of air, no recurring pulmonary infections Cardiovascular/Peripheral Vascular: No chest pain, No palpitations, no edema, no shortness of breath. Gastrointestinal: no new onset incontinence, normal bowel movements reported Genitourinary: no new onset incontinence Musculoskeletal: Back pain, leg pain Psychiatric: normal mood/ affect Neurological: [denies new onset weakness in extremities], [denies new onset balance issues] Objective:: Physical Exam General: Alert and oriented x3, no acute distress, pleasant and cooperative Lungs: Resps E/U, Symmetrical chest expansion Eyes: PERRL Musculoskeletal: Flexion and extension of lumbar spine somewhat guarded secondary to pain, deep tendon reflexes normal, strength in upper and lower extremities [5/5], slightly antalgic gait noted Neurological: speech clear, licensing services clerk equal, no gross sensory deficits Assessment:: Degenerative disc disease lumbar spine lumbar radiculopathy, postlaminectomy syndrome lumbar spine Plan:: The patient back in several weeks reassess his symptoms at that time he has been instructed to call the office if he has any issues prior to his next appointment. Dr. Arizmendi has reviewed this note and agrees with this plan of care. This note was dictated using voice recognition software and may contain errors or omissions [facility] History I have reviewed the patient's past medical history: Yes Medical History: Reports:: Gastroesophageal Reflux Disease(GERD), Hypertension Denies:: Cancer, Diabetes Mellitus Type 1, Diabetes Mellitus Type 2, Internal Pacemaker, Lung Disease, MRSA, Seizures *Have you ever received a pneumonia vaccine?: Yes *Have you received a flu vaccine this season?: Yes Other Medical History: Reports: Arthritis, Hypothyroidism. Denies: Blood Transfusion Reaction Other Surgeries: Yes: Cardiac Catheterization, Other (left hand). No: Pacemaker Amputation: No Fractures: No - *Social History Smoking Status: Current every day smoker Tobacco Type: cigarettes # Packs/Day (cigarettes): 2 Alcohol Intake: never Substance Use Type: denies use *Occupational Status:: retired Housing: house Household Members: spouse *Travel in the last 8 weeks: None Family Hx:: Cancer, Hyperlipidemia, Hypertension
== END ==
PROVIDERS: Visit Provider Clinical Nurse Specialist Family Health
DX: M51.16 Intervertebral disc disorders with radiculopathy, lumbar region (principal); M96.1 Postlaminectomy syndrome, not elsewhere classified
CPT/HCPCS: 99212; G0463

== ENCOUNTER → 2021-03-16 10:02 | Outpatient (POV) | payer MEDICARE, OTHER, SELFPAY ==
[2021-03-16 10:18] VITALS: BP 130/79; PULSE 89; RESP 18; O2SAT 97; BMI 25.7
--- NOTE | 2021-03-16 13:32 | HMH.PMPROC ---
- Procedure Date: 03/16/21 Time: 13:32 Anesthesiologist:: Marsha Andrews APRN Complications:: None Pre-procedure Diagnosis:: Degenerative disc disease lumbar spine with lumbar radiculopathy symptoms, postlaminectomy syndrome lumbar spine Post-procedure Diagnosis:: Same Indications for Procedure:: Patient is a pleasant 71-year-old white male who presents today for intrathecal pain pump adjustment. He has been treated for degenerative disc disease lumbar spine with lumbar radiculopathy symptoms and postlaminectomy syndrome lumbar spine. His pain is a 3 out of 10 today. Patient is having some dizziness with his intrathecal therapy. He did discuss at his last visit going to periodic flow to see if this will help with his dizziness. We will adjust him today to see if he tolerates periodic flow. He is currently on Dilaudid at 0.1 mg/day. [facility] #[id number] has been reviewed and is appropriate. Drug screen is appropriate. Patient is also managed with [place] [address] Toney. Physical exam General: Alert and oriented x3, no acute distress, pleasant and cooperative, [on room air] Lungs: Respirations even and unlabored, symmetrical chest expansion Eyes: PERRL Musculoskeletal: Flexion and extension of [] lumbar spine somewhat guarded secondary to pain, deep tendon reflexes normal, strength in upper and lower extremities [5/5], [abnormal gait noted] Neurological: Speech clear, jailer/training officer equal, no gross sensory deficit Procedure Details:: Informed consent was obtained and the risk and benefits of the procedure were explained to the patient. Patient was taken to the procedure room where noninvasive monitoring was placed including noninvasive blood pressure cuff and pulse oximeter. Patient's pump was interrogated and was reprogrammed to Dilaudid at 0.009 mg every 2 hours. The patient tolerated the procedure well with no complications. Plan and Disposition:: We will see the patient back in the clinic at his next refill. He has been instructed to contact clinic if he has any concerns for his next appointment. Patient has been instructed to contact the clinic with any concerns before the next appointment. Dr. Arizmendi has reviewed this note and agrees with this plan of care. This note was dictated using voice recognition software and make contain errors or omissions.
== END ==
PROVIDERS: Visit Provider Clinical Nurse Specialist Family Health
DX: M51.16 Intervertebral disc disorders with radiculopathy, lumbar region (principal); M96.1 Postlaminectomy syndrome, not elsewhere classified; Z45.1 Encounter for adjustment and management of infusion pump
CPT/HCPCS: 62368

== ENCOUNTER → 2021-03-30 09:03 | Outpatient (POV) | payer MEDICARE, OTHER, SELFPAY ==
[2021-03-30 09:17] VITALS: BP 127/76; PULSE 91; RESP 18; O2SAT 98; BMI 25.7
--- NOTE | 2021-03-30 09:23 | HMH.PMPROC ---
- Procedure Date: 03/30/21 Time: 09:23 Anesthesiologist:: Dena Decker APRN Complications:: None Pre-procedure Diagnosis:: Degenerative disc disease with lumbar radiculopathy, postlaminectomy syndrome lumbar spine Post-procedure Diagnosis:: Same Indications for Procedure:: Patient is a pleasant 71-year-old white male who presents today for follow-up and intrathecal pain pump adjustment. The patient was seen in the clinic on March 16, 2021 and had his intrathecal therapy changed over to periodic flow. He is currently managed with Dilaudid 0.009 mg every 2 hours. The patient states that periodic flow is not controlling his pain. He is willing to be switched back to constant with his PTC bolus availability. He is rating his pain today a 4 out of 10. The pain in his back is now worse with standing and activity. Prior to periodic flow this was not an issue for the patient. He denies any side effects to the medication today. His [facility] number is [id number] he has an active morphine equivalent of 0. Procedure Details:: Informed consent was obtained and the risk and benefits of the procedure were explained to the patient. Patient was taken to the procedure room where noninvasive monitoring was placed including noninvasive blood pressure cuff and pulse oximeter. Patient's pump was interrogated and was reprogrammed to []. The patient tolerated the procedure well with no complications. Plan and Disposition:: We will change his current intrathecal therapy back to constant flow at a rate of Dilaudid 0.1 mg/day. We will leave his current PTC doses at 0.007 mg per activation with 4 activations per day. As the patient did not bring his PTC bolus device with him today. We can certainly increase his PTC dose as needed, if his pain is still uncontrolled. We will follow up with the patient at his next therapy appointment refill. Dr. Arizmendi has reviewed this note and agrees with this plan of care. This note was dictated using voice recognition software and make contain errors or omissions.
== END ==
PROVIDERS: Visit Provider Family Medicine
DX: M51.16 Intervertebral disc disorders with radiculopathy, lumbar region (principal); M96.1 Postlaminectomy syndrome, not elsewhere classified; Z45.1 Encounter for adjustment and management of infusion pump
CPT/HCPCS: 62368

== ENCOUNTER 2021-04-10 13:42 | Day surgery (SDC) | payer MEDICARE, OTHER, SELFPAY ==
[2021-04-10 13:59] VITALS: BP 137/75; PULSE 104; RESP 18; TEMP 36.7; O2SAT 99; BMI 25.7
--- NOTE | 2021-04-10 14:15 | P.PCN_ITS ---
- Procedure Date: 04/10/21 Time: 14:15 Anesthesiologist:: Marsha Andrews APRN Complications:: None Pre-procedure Diagnosis:: Degenerative disc disease lumbar spine with lumbar radiculopathy symptoms, postlaminectomy syndrome lumbar spine Post-procedure Diagnosis:: Same Indications for Procedure:: Patient is a 71-year-old white male who presents today for intrathecal pain pump refill and reprogram. He is being treated for degenerative disc disease lumbar spine with lumbar radiculopathy symptoms and postlaminectomy syndrome lumbar spine. Patient was seen in the clinic on 03/30/2021 and was increased with his intrathecal therapy. He was previously having urinary hesitancy. As result, his dose was decreased. At his last visit, he did report to be having resolution of those symptoms. As result, he was increased with his medication. He is here today with complaints of feeling off balance. He says that he now feels wobbly . He is having to hold onto objects to be able to ambulate. He would like to go back to periodic flow. Patient does rate his pain a 5 out of 10. Patient also takes [place] [address] Toney. [place] #[id number] has been reviewed and is appropriate. Drug screen is appropriate. Morphine equivalent is 0. Physical exam General: Alert and oriented x3, no acute distress, pleasant and cooperative, [on room air] Lungs: Respirations even and unlabored, symmetrical chest expansion Eyes: PERRL Musculoskeletal: Flexion and extension of lumbar [spine] somewhat guarded secondary to pain, strength in upper and lower extremities [5/5], [antalgic gait noted] Neurological: Speech clear, [sueding machine tender equal], no gross sensory deficit Procedure Details:: Informed consent was obtained and the risk and benefits of the procedure were explained to the patient. The patient was taken to the procedure room where noninvasive monitoring was placed including noninvasive blood pressure cuff and pulse oximeter. Patient's pump was interrogated. The area over the pump was cleansed with chlorhexidine as a cleansing solution. In sterile fashion the pump was accessed with a 22-gauge needle. Approximately 6 mls of the pump solution was removed and discarded appropriately. The pump was then refilled with 20 mL's of Dilaudid 1 mg/mL. The needle was withdrawn and a bandage was placed over the puncture site. The infusion rate was reprogrammed at Dilaudid at 0.009 mg every 2 hours. The patient tolerated well with no complication. Plan and Disposition:: We will see the patient back in the clinic at the next intrathecal refill. Patient has been instructed to contact the clinic with any concerns before the next appointment. Dr. Arizmendi has reviewed this note and agrees with this plan of care. This note was dictated using voice recognition software and make contain errors or omissions.
[2021-04-10 14:17] VITALS: BP 137/88; PULSE 108; RESP 18; O2SAT 97
[2021-04-10 14:18] VITALS: BP 137/88; PULSE 104; RESP 18; O2SAT 97
[2021-04-10 14:33] VITALS: BP 108/82; PULSE 90; RESP 18; O2SAT 99
== END 2021-04-10 14:34 | disposition home or self-care (01) ==
LOC: SC.PAINP 13:43
PROVIDERS: PCP Internal Medicine Adolescent Medicine; Visit Provider Clinical Nurse Specialist Family Health
DX: M51.16 Intervertebral disc disorders with radiculopathy, lumbar region (principal); M96.1 Postlaminectomy syndrome, not elsewhere classified; Z45.1 Encounter for adjustment and management of infusion pump; I10 Essential (primary) hypertension; K21.9 Gastro-esophageal reflux disease without esophagitis; M19.90 Unspecified osteoarthritis, unspecified site; E03.9 Hypothyroidism, unspecified; Z88.6 Allergy status to analgesic agent; Z88.8 Allergy status to other drugs, medicaments and biological substances
CPT/HCPCS: 62370

== ENCOUNTER → 2021-05-09 07:43 | Outpatient (CLI) | payer MEDICARE, OTHER, SELFPAY ==
[2021-05-09 09:11] LABS: Alanine Aminotransferase 13 U/L (12-78); Albumin Level 4.4 g/dl (3.5-5.0); Albumin/Globulin Ratio 1.3 (1.1-1.8); Alkaline Phosphatase 40 U/L (38-126); Anion Gap 16.4 mEq/L (5-15); Aspartate Amino Transferase 19 U/L (17-59); Bilirubin,Total 0.4 mg/dl (0.2-1.3); Blood Urea Nitrogen 15 mg/dl (9-20); Calcium 9.4 mg/dl (8.4-10.2); Carbon Dioxide 29 mmol/L (22.0-30.0); Chloride 99 mmol/L (98-107); Chol/HDL Ratio 5.5 (1-3.5); Cholesterol 171 mg/dl (140-200); Estimated Glomerular Filt Rate 66 ml/min (>60); GFR (African American) 80 ML/MIN (>60); Globulin 3.3 g/dL (1.3-3.2); Glucose 119 mg/dl (74-100); HDL Cholesterol 31 mg/dl (40-60); Potassium 4.4 mmoL/L (3.5-5.1); Sodium 140 mmol/L (136-145); Total Protein,Serum 7.7 g/dl (6.3-8.2); Triglycerides 352 mg/dl (30-150); VLDL Cholesterol 70 mg/dL (0-40)
[2021-05-09 09:22] LABS: Direct LDL Cholesterol 80.24 mg/dL (100-129)
[2021-05-09 09:28] LABS: Free Thyroxine Index 2.8 ug/dL (5.93-13.13); T4 (Thyroxine) 7.8 ug/dl (5.53-11.0); Triiodothryronine (T3) Uptake 36 % (23.5-40.5)
[2021-05-09 09:41] LABS: Thyroid Stimulating Hormone 2.86 uIU/mL (0.465-4.68)
== END ==
PROVIDERS: Visit Provider Internal Medicine Adolescent Medicine
DX: Z00.00 Encounter for general adult medical examination without abnormal findings (principal); I10 Essential (primary) hypertension; E03.9 Hypothyroidism, unspecified; Z79.899 Other long term (current) drug therapy
CPT/HCPCS: 36415; 80053; 80061; 84436; 84443; 84479

== ENCOUNTER → 2021-05-18 14:31 | Outpatient (POV) | payer MEDICARE, OTHER, SELFPAY ==
[2021-05-18 14:49] VITALS: BP 138/67; PULSE 64; RESP 18; O2SAT 97; BMI 25.0
--- NOTE | 2021-05-18 14:59 | P.PCN_ITS ---
- Procedure Date: 05/18/21 Time: 15:00 Anesthesiologist:: Marsha Andrews APRN Complications:: None Pre-procedure Diagnosis:: Degenerative disc disease lumbar spine with lumbar radiculopathy symptoms, postlaminectomy syndrome lumbar spine Post-procedure Diagnosis:: Same Indications for Procedure:: Patient is a pleasant 71-year-old white male who presents today for intrathecal pain pump adjustment. He is complaining of worsening pain to his low back. The patient was having some issues in the past with dizziness related to the medication. He says that his pain is worse than his dizziness. He says the dizziness has improved somewhat, but the pain has worsened. He is having pain in his low back with radiation into bilateral lower extremities. He rates his pain a 6 out of 10 today. He is currently on periodic flow, with a total daily dose of Dilaudid at 0.108 mg/day. His periodic dosing is at Dilaudid 0.009 mg every 2 hours. The patient would like to go back to constant flow and be able to use his PTC device. 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 Patient was taken to the procedure room where noninvasive monitoring was placed including noninvasive blood pressure cuff and pulse oximeter. Patient's pump was interrogated and was reprogrammed to Dilaudid at 0.12 mg/day PTC at 0.02 mg up to 4 times daily. The patient tolerated the procedure well with no complications. Plan and Disposition:: We will see the patient back in the clinic at the next intrathecal refill. Patient has been instructed to contact the clinic with any concerns before the next appointment. Dr. Arizmendi has reviewed this note and agrees with this plan of care. This note was dictated using voice recognition software and make contain errors or omissions.
== END ==
PROVIDERS: PCP Internal Medicine Adolescent Medicine; Visit Provider Clinical Nurse Specialist Family Health
DX: M51.16 Intervertebral disc disorders with radiculopathy, lumbar region (principal); M96.1 Postlaminectomy syndrome, not elsewhere classified
CPT/HCPCS: 99212; G0463

== ENCOUNTER 2021-07-17 13:55 | Day surgery (SDC) | payer MEDICARE, OTHER, SELFPAY ==
[2021-07-17 14:00] VITALS: BP 102/81; PULSE 96; RESP 18; TEMP 36.2; O2SAT 96; BMI 25.7
--- NOTE | 2021-07-17 14:14 | HMH.PMPROC ---
- Procedure Date: 07/17/21 Time: 14:14 Anesthesiologist:: Marsha Andrews APRN Complications:: None Pre-procedure Diagnosis:: Degenerative disc disease lumbar spine with lumbar radiculopathy symptoms Post-procedure Diagnosis:: Same Indications for Procedure:: Patient is a pleasant 81-year-old white male who presents today for intrathecal pain pump [refill] [and reprogram]. The patient is being treated for low back pain. He was increased at his last refill. He would like an increase in his intrathecal therapy today. He requires small increase is due to sensitivity to the medication. He does not typically go more than 10% increases.. Patient rates pain a 7 out of 10. Drug screen is appropriate. Olivier [ ] has been reviewed and is appropriate. He is currently on a dose of Dilaudid at 0.12 mg/day Physical exam General: Alert and oriented x3, no acute distress, pleasant and cooperative, [on room air] Lungs: Respirations even and unlabored, symmetrical chest expansion Eyes: PERRL Musculoskeletal: Flexion and extension of lumbar [spine] somewhat guarded secondary to pain, [antalgic gait noted] Neurological: Speech clear, no gross sensory deficit Procedure Details:: Informed consent was obtained and the risk and benefits of the procedure were explained to the patient. The patient was taken to the procedure room where noninvasive monitoring was placed including noninvasive blood pressure cuff and pulse oximeter. Patient's pump was interrogated. The area over the pump was cleansed with chlorhexidine as a cleansing solution. In sterile fashion the pump was accessed with a 22-gauge needle. Approximately 6 mls of the pump solution was removed and discarded appropriately. The pump was then refilled with 20 mL's of Dilaudid 1 mg/mL. The needle was withdrawn and a bandage was placed over the puncture site. The infusion rate was reprogrammed at Dilaudid at .132 mg/day. The patient tolerated well with no complication. Plan and Disposition:: We will see the patient back in the clinic at the next intrathecal refill. Patient has been instructed to contact the clinic with any concerns before the next appointment. Dr. Arizmendi has reviewed this note and agrees with this plan of care. This note was dictated using voice recognition software and make contain errors or omissions.
[2021-07-17 14:25] VITALS: BP 157/79; PULSE 98; RESP 18; O2SAT 100
[2021-07-17 14:26] VITALS: PULSE 96; RESP 18; O2SAT 96
[2021-07-17 14:40] VITALS: BP 110/70; PULSE 84; RESP 20; O2SAT 99
[2021-07-17 19:49] LABS: Amphetamine/Metha Screen,Urine Negative ng/ml (<1000); Barbiturates Screen,Urine Negative ng/ml (<200)
[2021-07-17 19:53] LABS: Benzodiazepines Screen,Urine Negative ng/ml (<200)
[2021-07-17 19:54] LABS: Cannabinoid Screen,Urine Negative ng/ml (<50); Cocaine Screen,Urine Negative ng/ml (<300)
[2021-07-17 19:55] LABS: Methadone Screen,Urine Negative ng/ml (<300)
[2021-07-17 19:56] LABS: Opiate Screen,Urine Negative ng/ml (<300); Phencyclidine Screen,Urine Negative ng/ml (<25)
== END 2021-07-17 14:40 | disposition home or self-care (01) ==
LOC: SC.PAINP 13:56
PROVIDERS: PCP Internal Medicine Adolescent Medicine; Visit Provider Clinical Nurse Specialist Family Health
DX: M51.16 Intervertebral disc disorders with radiculopathy, lumbar region (principal); Z45.1 Encounter for adjustment and management of infusion pump; Z79.891 Long term (current) use of opiate analgesic
CPT/HCPCS: 62370; 80305

== ENCOUNTER 2021-10-02 12:45 | Day surgery (SDC) | payer MEDICARE, OTHER, SELFPAY ==
[2021-10-02 13:00] VITALS: BP 118/80; PULSE 89; RESP 18; O2SAT 97
[2021-10-02 13:09] VITALS: BP 142/77; PULSE 89; RESP 20; TEMP 36.6; O2SAT 98; BMI 26.3
--- NOTE | 2021-10-02 13:09 | HMH.PMPROC ---
- Procedure Date: 10/02/21 Time: 13:09 Anesthesiologist:: Marsha Andrews APRN Complications:: None Pre-procedure Diagnosis:: Degenerative disc disease lumbar spine with lumbar radiculopathy symptoms Post-procedure Diagnosis:: Same Indications for Procedure:: Patient is a 71-year-old white male who presents today for intrathecal pain pump refill and reprogram. Patient does have generalized edema bilateral lower extremities and is having some occasional urinary urgency. He is on Flomax 0.8 mg daily. He says for now he feels the symptoms are tolerable. He does have an allergy to morphine. He does not want to change his intrathecal therapy at this time. He is on Dilaudid at 0.132 mg/day. Does not need any changes. Olivier and drug screen are appropriate. Olivier #[id number] has been reviewed and is appropriate. Drug screen is appropriate. Physical exam General: Alert and oriented x3, no acute distress, pleasant and cooperative Lungs: Respirations even and unlabored, symmetrical chest expansion Eyes: PERRL Musculoskeletal: Flexion and extension of lumbar [spine] somewhat guarded secondary to pain, [antalgic gait noted] Neurological: Speech clear, no gross sensory deficit Procedure Details:: Informed consent was obtained and the risk and benefits of the procedure were explained to the patient. The patient was taken to the procedure room where noninvasive monitoring was placed including noninvasive blood pressure cuff and pulse oximeter. Patient's pump was interrogated. The area over the pump was cleansed with chlorhexidine as a cleansing solution. In sterile fashion the pump was accessed with a 22-gauge needle. Approximately 9.5 mls of the pump solution was removed and discarded appropriately. The pump was then refilled with 20 mL's of Dilaudid 1 mg/mL. The needle was withdrawn and a bandage was placed over the puncture site. The infusion rate was reprogrammed at continued at Dilaudid at 0.132 mg/day. The patient tolerated well with no complication. Plan and Disposition:: We will see the patient back in the clinic at the next intrathecal refill. Patient has been instructed to contact the clinic with any concerns before the next appointment. Risks and benefits of the medication have been explained in detail to the patient. The patient does understand the risk of dependence on the medication when given over a prolonged period. Patient has been advised of risks of oversedation with the prescribed medication. Narcan has been offered to the paitent in the event of oversedation. Patient has been advised that a family member should also be educated regarding administration of Narcan. The patient has been advised to consult with his/her primary care provider and pharmacist regarding drug-drug interaction of medications currently prescribed. OLIVIER report has been obtained and reviewed prior to prescription and found to be appropriate. Opioid contract was reviewed and signed by the patient, and that they have agreed to all of the terms set forth by our compliance program. Patient has been instructed to contact the clinic with any concerns before the next appointment. Dr. Arizmendi has reviewed this note and agrees with this plan of care. This note was dictated using voice recognition software and make contain errors or omissions. Dr. Arizmendi has reviewed this note and agrees with this plan of care. This note was dictated using voice recognition software and make contain errors or omissions.
[2021-10-02 13:10] VITALS: BP 117/78; PULSE 92; RESP 20; O2SAT 96
[2021-10-02 15:30] VITALS: BP 144/75; PULSE 88; RESP 20; O2SAT 98
[2021-10-02 16:37] LABS: Amphetamine/Metha Screen,Urine Negative ng/ml (<1000); Barbiturates Screen,Urine Negative ng/ml (<200)
[2021-10-02 16:38] LABS: Benzodiazepines Screen,Urine Negative ng/ml (<200)
[2021-10-02 16:39] LABS: Cannabinoid Screen,Urine Negative ng/ml (<50)
[2021-10-02 16:40] LABS: Cocaine Screen,Urine Negative ng/ml (<300)
[2021-10-02 16:41] LABS: Methadone Screen,Urine Negative ng/ml (<300); Opiate Screen,Urine Negative ng/ml (<300)
[2021-10-02 16:42] LABS: Phencyclidine Screen,Urine Negative ng/ml (<25)
[2021-10-15 13:19] LABS: Opiates Negative (Cutoff=100)
== END 2021-10-02 15:30 | disposition home or self-care (01) ==
LOC: SC.PAINP 12:46
PROVIDERS: PCP Internal Medicine Adolescent Medicine; Visit Provider Clinical Nurse Specialist Family Health
DX: M51.16 Intervertebral disc disorders with radiculopathy, lumbar region (principal); Z45.1 Encounter for adjustment and management of infusion pump
CPT/HCPCS: 80305; 80361; 80365; 95991; G0480

== ENCOUNTER → 2022-01-01 12:48 | Day surgery (SDC) | payer MEDICARE, OTHER, SELFPAY ==
[2022-01-01 13:10] VITALS: BP 120/69; PULSE 100; RESP 20; TEMP 36.7; O2SAT 97; BMI 26.9
[2022-01-01 13:16] VITALS: BP 134/79; PULSE 106; RESP 18; O2SAT 98
[2022-01-01 13:18] VITALS: BP 136/75; PULSE 93; RESP 18; O2SAT 98
[2022-01-01 13:34] VITALS: BP 127/74; PULSE 89; RESP 20; O2SAT 97
--- NOTE | 2022-01-01 14:06 | HMH.PMPROC ---
- Procedure Date: 01/01/22 Time: 14:06 Anesthesiologist:: YAIR Bernard Complications:: None Pre-procedure Diagnosis:: Degenerative disc disease of lumbar spine with lumbar radiculopathy symptoms Post-procedure Diagnosis:: Same Indications for Procedure:: Patient is a pleasant 71-year-old male who presents today for intrathecal pain pump [refill] [and reprogram]. The patient is being treated for degenerative disc disease of lumbar spine with lumbar radiculopathy symptoms. Patient is currently being managed with Dilaudid 1 mg/mL at a rate of 0.132 mg/day. Patient states that he has been having urinary hesitation and constipation with this medication. He has been complaining of swelling on bilateral legs as well he is currently taking Flomax 0.4 mg twice a day that is prescribed by Dr. Ware. Patient states that when he was last here, Marsha and him were talking about changing his medication. We also have tried increasing his medication but it causes him dizziness. He says that he cannot have morphine because it causes some itchiness. I discussed with him that we can probably change him to bupivacaine. His Dilaudid medication might be too low to change him to fentanyl. Patient rates pain a 4 out of 10. Drug screen is appropriate. Olivier [id number] with an active morphine equivalent of 0 has been reviewed and is appropriate. Physical exam General: Alert and oriented x3, no acute distress, pleasant and cooperative, [on room air] Lungs: Respirations even and unlabored, symmetrical chest expansion Eyes: PERRL Musculoskeletal: Flexion and extension of lumbar [spine] somewhat guarded secondary to pain, [antalgic gait noted] Neurological: Speech clear, no gross sensory deficit Procedure Details:: Informed consent was obtained and the risk and benefits of the procedure were explained to the patient. The patient was taken to the procedure room where noninvasive monitoring was placed including noninvasive blood pressure cuff and pulse oximeter. Patient's pump was interrogated. The area over the pump was cleansed with chlorhexidine as a cleansing solution. [Fluoroscopy was used to access the pump]. In sterile fashion the pump was accessed with a 22-gauge needle. Approximately 8 mls of the pump solution was removed and discarded appropriately. The pump was then refilled with 20 mL's of Dilaudid 1 mg/mL. The needle was withdrawn and a bandage was placed over the puncture site. The infusion rate was reprogrammed and continued at Dilaudid 0.132 mg/day. The patient tolerated well with no complication. Plan and Disposition:: I will start the patient on a stool softener for his constipation. Patient is to continue taking Flomax. We will follow-up with this patient in 2 weeks. We will most likely change this patient to bupivacaine instead of fentanyl. Patient has been instructed to contact the clinic with any concerns before the next appointment. Dr. Arizmendi has reviewed this note and agrees with this plan of care. This note was dictated using voice recognition software and make contain errors or omissions.
== END ==
PROVIDERS: PCP Internal Medicine Adolescent Medicine; Visit Provider Student in an Organized Health Care Education/Training Program
DX: M51.16 Intervertebral disc disorders with radiculopathy, lumbar region (principal); Z45.1 Encounter for adjustment and management of infusion pump; E07.9 Disorder of thyroid, unspecified; E78.5 Hyperlipidemia, unspecified; I10 Essential (primary) hypertension; K21.9 Gastro-esophageal reflux disease without esophagitis; Z72.0 Tobacco use; M19.90 Unspecified osteoarthritis, unspecified site; Z88.5 Allergy status to narcotic agent; Z88.8 Allergy status to other drugs, medicaments and biological substances
CPT/HCPCS: 95991; Q9966

== ENCOUNTER → 2022-01-12 12:17 | Outpatient (CLI) | payer MEDICARE, OTHER, SELFPAY ==
--- NOTE | 2022-01-12 12:20 | CT_ITS ---
FINAL REPORT CLINICAL HISTORY: PULMONARY NODULE FINDINGS: Axial CT images of the chest were obtained with contrast. Coronal reformatted images were also obtained. This study was performed with techniques to keep radiation doses as low as reasonably achievable, (ALARA). Individualized dose reduction techniques using automated exposure control or adjustment of mA and/or KV according to the patient's size were employed. There is no evidence of mediastinal or hilar mass or adenopathy. No axillary mass or adenopathy is identified. On lung window images, there is mild bilateral scarring. There are two small nodules in the region of the minor fissure measuring up to 6 mm, stable in size and appearance. There is a stable 3 mm right upper lobe nodule seen on image 29. There is no new mass or nodule identified.. No localized pulmonary inflammatory process is identified. Limited images of the upper abdomen reveal no mass or localized inflammatory process. IMPRESSION: Pulmonary nodules, stable since September of 2019 and consistent with benign nodules. No additional follow-up is required. Reviewed, Interpreted and Dictated by Sanjiv Burgess III, MD Transcribed by Latrice Richards Authenticated by Sanjiv Burgess III, MD on 01/12/2022 02:39:38 PM [facility]
[2022-01-12 12:32] LABS: Blood Urea Nitrogen 11 mg/dl (9-20); Estimated Glomerular Filt Rate 54 ml/min (>60); GFR (African American) 66 ML/MIN (>60)
== END ==
PROVIDERS: PCP Internal Medicine Adolescent Medicine; Visit Provider Internal Medicine Adolescent Medicine
DX: R91.1 Solitary pulmonary nodule (principal)
CPT/HCPCS: 36415; 71260; 82565; 84520; Q9967

== ENCOUNTER 2022-01-19 09:50 | Day surgery (SDC) | payer MEDICARE, OTHER, SELFPAY ==
[2022-01-19 09:59] VITALS: BP 125/67; PULSE 93; RESP 18; TEMP 36.5; O2SAT 98; BMI 26.9
[2022-01-19 10:04] VITALS: BP 131/77; PULSE 101; RESP 18; O2SAT 98
[2022-01-19 10:06] VITALS: BP 138/75; PULSE 96; RESP 18; O2SAT 100
--- NOTE | 2022-01-19 10:16 | HMH.PMPROC ---
- Procedure Date: 01/19/22 Time: 10:16 Anesthesiologist:: Carlos Arizmendi MD Complications:: None Pre-procedure Diagnosis:: Degenerative disc disease of lumbar spine with lumbar radiculopathy symptoms and postlaminectomy syndrome lumbar spine. Post-procedure Diagnosis:: Same Indications for Procedure:: This patient is a pleasant 71-year-old white male who we are treating for low back pain with lumbar radiculopathy symptoms. He has side effects with his current medication of intrathecal Dilaudid. Also causes him dizziness. This does help with pain he is having dizziness, urinary retention, constipation and he did have severe itching with morphine. We will switch him over to intrathecal fentanyl today. It was decided after talking to my PA that fentanyl would be the best option since he was getting adequate pain relief with Dilaudid. We will do a double catheter aspiration of the catheter aspiration port and start him with intrathecal fentanyl 25 mcg/day. Procedure Details:: Informed consent was obtained and the risks and benefits of the procedure was explained to the patient. The patient was taken to the procedure room. The pump was interrogated. The area over the pump was prepped using ChloraPrep. The pump was accessed with a 22-gauge needle. Approximately 17 mL's of the intrathecal solution was withdrawn and discarded. The pump was then refilled with 20 mL's of intrathecal intrathecal fentanyl 500 mcg/mL. After double catheter aspiration at the catheter aspiration port, the pump was interrogated and the infusion was continued at 25 mcg/day. The patient tolerated the procedure well with no complication. Plan and Disposition:: We will follow-up with this patient in 1 week. Will reevaluate his symptoms and make adjustments at that time.
[2022-01-19 10:29] VITALS: BP 135/84; PULSE 94; RESP 20; O2SAT 98
--- NOTE | 2022-01-20 12:47 | PC.NURSE ---
called in Rx for Valium 5mg PO BID #12 with no refills per MD order.
== END 2022-01-19 10:30 | disposition home or self-care (01) ==
LOC: SC.PAINP 09:51
PROVIDERS: PCP Internal Medicine Adolescent Medicine; Visit Provider Anesthesiology
DX: M51.16 Intervertebral disc disorders with radiculopathy, lumbar region (principal); M96.1 Postlaminectomy syndrome, not elsewhere classified; Z45.1 Encounter for adjustment and management of infusion pump; E07.9 Disorder of thyroid, unspecified; E78.5 Hyperlipidemia, unspecified; I10 Essential (primary) hypertension; K21.9 Gastro-esophageal reflux disease without esophagitis; Z72.0 Tobacco use; Z88.5 Allergy status to narcotic agent; Z88.6 Allergy status to analgesic agent; Z88.8 Allergy status to other drugs, medicaments and biological substances
CPT/HCPCS: 95991; C1772

== ENCOUNTER 2022-01-20 11:54 | Emergency (ER) | payer MEDICARE, OTHER, SELFPAY ==
[2022-01-20 11:55] VITALS: BP 141/83; PULSE 105; RESP 22; TEMP 36.5; O2SAT 98; BMI 26.9
--- NOTE | 2022-01-20 12:07 | PC.NURSE ---
CLIVE Koenig at BS
--- NOTE | 2022-01-20 12:20 | PC.NURSE ---
During triage, nurse asked pt if he was in any pain, even though she knew he was wanting to be seen for generalized feeling of unwellness r/t pain pump and wishing to have it turned off. Pt began yelling at this nurse, stating It's not about pain! I don't care about the pain! It's not about the pain! I've dealt with it for 20 some years before getting this pump. I just need to be able to function! This nurse stated Ok. I was just asking. I didn't want you to be in pain . Pt yelled again, It's not about the pain! asked for this nurse's name, so I willingly gave it to her.
[2022-01-20 12:30] VITALS: BP 142/81; PULSE 84; O2SAT 97
--- NOTE | 2022-01-20 12:37 | PC.NURSE ---
Lea from Dr. Arizmendi office at BS to turn off pain pump
--- NOTE | 2022-01-20 12:39 | HMH.EDGENADL ---
ED Disposition Clinical Impression: Medication reaction Qualifiers: Encounter type: initial encounter Qualified Code(s): T50.905A - Adverse effect of unspecified drugs, medicaments and biological substances, initial encounter Disposition: Home, Self-Care Condition on Discharge: Fair Additional Instructions: Take Valium as prescribed by Dr. Arizmendi. Follow-up with Dr. Arizmendi in the office as arranged. Referrals: Gregorio Ware MD [Primary Care Provider] - - Critical Care Critical Care Time: No Attestation: On , the high probability of a clinically significant, sudden or life threatening deterioration of the following system(s) required my full and direct attention, intervention and personal management. The time I documented below is in addition to time spent performing reported procedures but includes the following listed in this critical care notation. Medical Decision Making - Olivier Inquiry Pt receiving controlled substance: No Vital Signs: 01/20/22 11:55 01/20/22 12:30 Temperature 97.7 F Temperature Source Oral Pulse Rate 84 Pulse Rate [Right Radial] 105 H Respiratory Rate 22 Blood Pressure 142/81 H Blood Pressure [Right Arm] 141/83 H Blood Pressure Mean 100 Blood Pressure Mean [Right Arm] 102 Blood Pressure Source Automatic Cuff Blood Pressure Source [Right Arm] Automatic Cuff Blood Pressure Position Sitting Blood Pressure Position [Right Arm] Sitting 02 Sat by Pulse Oximetry 98 97 Oxygen Delivery Method Room Air Room Air Medical Decision Narrative: The patient states that he does not want any further evaluation or treatment at this time. He has a follow-up with Dr. Arizmendi. He says that he just wanted his pain pump turned off. Dr. Arizmendi is calling in Valium to his pharmacy. General Adult HPI - General Chief complaint: Weakness Stated complaint: reaction to pain pump, burning in chest Time Seen by Provider: 01/20/22 12:39 Mode of Arrival: Ambulatory Limitations: No Limitations Description of Symptoms (Recalled from ER Triage Doc. by RN): Pt states that he had meds changed from Dilaudid to Fentanyl in his pain pump at 1000 AM yesterday. Advises that at approx 1100 last night he began feeling bad. C/O shaking and unable to function . Pt states that they spoke with pain management team approx 20 mins REIMBURSEMENT REPRESENTATIVE and were told that someone would come in and turn the pain pump off. - History of Present Illness HPI narrative: The patient had his intrathecal pain pump medication changed yesterday. He had been on Dilaudid but he was having side effects from it with shakiness, urinary retention, constipation, dizziness. Dr. Arizmendi changed his medication to fentanyl yesterday. Since last night at about 11 he has been feeling shaky, burning all over, hard to focus and function. He contacted the pain management clinic. Dr. Arizmendi felt he was most likely experiencing withdrawal, but the patient wants his pain pump turned off. He was advised to come into the emergency room and a chemical lab technician would come in to turn off his pump and he could have his symptoms evaluated and treated. The chemical lab technician has already turned off his pump prior to my evaluation and he advises me that the patient is stating that he does not want any treatment or evaluation of his symptoms, just wanted his pain pump turned off. The patient is also had previous reaction to morphine. - Related Data Home Medications Medication Instructions Recorded Confirmed Baclofen 20 mg PO TID 12/02/17 01/19/22 Levothyroxine Sodium 125 mcg PO DAILY 12/02/17 01/19/22 [Levothyroxine 200mcg (0.2mg) Tab] Omeprazole [Omeprazole 20mg Tab] 20 mg PO DAILY 12/02/17 01/19/22 Tamsulosin HCl [Flomax 0.4mg 0.8 mg PO HS 12/02/17 01/19/22 capsule] lisinopriL [Lisinopril 20mg Tab] 20 mg PO DAILY 12/02/17 01/19/22 Sennosides/Docusate Sodium [Stool 1 each PO DAILY 01/19/22 01/19/22 Softener-Laxative Tablet] Allergies Allergy/AdvReac Type Severity Reaction St
--- NOTE | 2022-01-20 12:43 | PC.NURSE ---
CLIVE Tate from pain management reports patient states he does not want anything else done at this time. She reported to Dr. Saldivar what patient said. Dr. Saldivar is at BS at this time; family at BS
--- NOTE | 2022-01-20 12:47 | PC.NURSE ---
Pain management nurse called to advise that Valium is being called in to pharmacy to help pt with tremors. Pt notified.
[2022-01-20 12:50] VITALS: BP 141/83; PULSE 105; RESP 18; TEMP 36.5; O2SAT 98
== END 2022-01-20 12:52 | disposition home or self-care (01) ==
PROVIDERS: Emergency Provider Emergency Medicine; PCP Internal Medicine Adolescent Medicine
DX: R07.89 Other chest pain (principal); T40.415A Adverse effect of fentanyl or fentanyl analogs, initial encounter; R33.8 Other retention of urine; Y92.009 Unspecified place in unspecified non-institutional (private) residence as the place of occurrence of the external cause; R53.1 Weakness; R25.1 Tremor, unspecified
CPT/HCPCS: 99281

== ENCOUNTER → 2022-01-23 13:09 | Outpatient (POV) | payer MEDICARE, OTHER, SELFPAY ==
[2022-01-23 13:31] VITALS: BP 159/92; PULSE 117; RESP 18; O2SAT 97; BMI 27.6
--- NOTE | 2022-01-23 14:14 | P.PCN_ITS ---
- Procedure Date: 01/23/22 Time: 14:14 Anesthesiologist:: Carlos Arizmendi MD Complications:: None Pre-procedure Diagnosis:: Degenerative disc disease of lumbar spine with lumbar radiculopathy symptoms and postlaminectomy syndrome lumbar spine Post-procedure Diagnosis:: Same Indications for Procedure:: This patient is a pleasant 71-year-old white male who we are treating for low back pain with lumbar radiculopathy symptoms and postlaminectomy syndrome lumbar spine. Recently his intrathecal medications were changed from intrathecal Dilaudid to intrathecal fentanyl because of side effects. He did call over the weekend having some chest burning and symptoms that may have been associated with some withdrawal symptoms he called and demanded that his pump be turned off. I did direct him to go to the emergency room to be evaluated. At that time he refused an evaluation and his pump was turned off by one of our pain clinic nurses. We did call him in some Valium 5 mg twice a day to help with withdrawal symptoms. Patient says that he took 2 pills and then threw the rest away. He comes in very upset today saying that he was abandoned over the weekend however I did reassure him that we had to have him evaluated in the emergency room before we can make any decisions. Patient is wanting to seek care elsewhere. He does want his pump turned back on. I did tell him that we will turn his pump back on however we will continue to treat him until he transferred to another pain clinic if so desired. So we will turn his pump back on today with intrathecal fentanyl 25 mcg/day. We will follow-up with him on Saturday to make adjustments as needed. Procedure Details:: Analysis and reprogramming of intrathecal pain pump Informed consent was obtained the risk and benefits of the procedure were explained to the patient. Patient was taken the procedure room. The pump was interrogated. Intrathecal pain pump was turned back on and started back at 25 m cg/day of intrathecal fentanyl. Patient tolerated the procedure well with no complications. Plan and Disposition:: We will follow-up with this patient in 3 days. We will reevaluate his symptoms and make further changes if needed.
== END ==
PROVIDERS: PCP Internal Medicine Adolescent Medicine; Visit Provider Anesthesiology
DX: M51.16 Intervertebral disc disorders with radiculopathy, lumbar region (principal); M96.1 Postlaminectomy syndrome, not elsewhere classified
CPT/HCPCS: 62368; 99213; G0463

== ENCOUNTER → 2022-01-26 12:31 | Outpatient (POV) | payer MEDICARE, OTHER, SELFPAY ==
[2022-01-26 12:56] VITALS: BP 161/83; PULSE 52; RESP 18; O2SAT 98; BMI 23.0
--- NOTE | 2022-01-26 13:05 | HMH.PMPROC ---
- Procedure Date: 01/26/22 Time: 13:05 Anesthesiologist:: Carlos Arizmendi MD Complications:: None Pre-procedure Diagnosis:: Degenerative disc disease of lumbar spine with lumbar radiculopathy symptoms and postlaminectomy syndrome lumbar spine Post-procedure Diagnosis:: Same Indications for Procedure:: Patient is a 71-year-old white male who we are treating for low back pain with lumbar radiculopathy symptoms. He was having side effects with his intrathecal Dilaudid infusion so we switched him over to intrathecal fentanyl. During the transition he did have some withdrawal effects. We will he asked for his pump to be turned off we did turn him off and then we saw him in clinic on Saturday. We did restart his pump with intrathecal fentanyl 25 mcg/day. Since then he has been feeling somewhat better however he just still does not feel good. The patient is adamant that he wants to leave our clinic and he does not trust us. He would like his PTC restarted. We will restart his PTC at 10% of his daily dose up to 4 times a day. We will set him a refill date so he is not abandoned and we will release him to seek his care elsewhere. We will interrogate his pump and continue him at 25 mcg/day. We did give him a 25 mcg bolus here in clinic to see if this would help further with his pain symptoms as he probably does need an increase. Patient is refusing any adjustments except for restarting his PTC. Procedure Details:: Analysis and reprogram of intrathecal fentanyl pain pump Informed consent was obtained and the risk and benefits of the procedure were explained to the patient. Patient was interrogated. He was given a 25 mcg bolus while here in clinic to see if this will help with some of his symptoms. The patient did note increased relief of his symptoms however he does not want an increase in his pain pump infusion. He will remain a 25 mcg/day. We did restart his PTC at 2.5 mcg up to 4 times a day. Patient has enough medication until August 2022. We will give him a refill date here in approximately 3 months so he is not abandoned. Plan and Disposition:: Patient is wanting to seek care elsewhere for management of his pump. We will release him to seek another pain physician to take over his pain pump. We will give him a refill date so is not abandoned. His refill date will be in approximately 3 months. He does have enough medication to last until August 2022. He continues currently at intrathecal fentanyl 25 mcg/day with PTC boluses of 2.5 mcg up to 4 times a day.
== END ==
PROVIDERS: PCP Internal Medicine Adolescent Medicine; Visit Provider Anesthesiology
DX: M51.16 Intervertebral disc disorders with radiculopathy, lumbar region (principal); M96.1 Postlaminectomy syndrome, not elsewhere classified
CPT/HCPCS: 62368; 99212; G0463

== ENCOUNTER 2024-11-05 14:50 | Outpatient (CLI) | payer MEDICARE, OTHER, SELFPAY ==
--- NOTE | 2024-11-05 14:56 | CT_ITS ---
FINAL REPORT TECHNIQUE: Thin section axial images were obtained from the lung apices to the upper abdomen by computed tomography. Reformatted images were obtained and reviewed. This study was performed with techniques to keep radiation doses al low as reasonably achievable (ALARA). Individualized dose reduction techniques using automated exposure control or adjustment of mA and/or kV according to the patient's size were employed. CLINICAL HISTORY: Low dose lung screening current smoker 2ppd x 50 years COMPARISON: Chest CT 01/12/2022 FINDINGS: CHEST CT LOW DOSE 74-year-old male, current smoker, [id number] history. CTDI vol (mGy): 2.90 DLP (mGy-cm): 116.72 There is no axillary adenopathy. There is no mediastinal or hilar mass or adenopathy. The heart is normal in size. Moderate coronary artery calcifications are noted. There is streak artifact from an infusion pump in the right flank. There is no pericardial or pleural effusion. Lung window images demonstrate 2 adjacent nodules along the anterior aspect of the minor fissure, which are stable when compared to the prior CT. There is a tiny nodule in the right upper lobe, best seen on image #21 of series 3, also stable. No new nodules are identified. Limited images of the upper abdomen are unremarkable. IMPRESSION: Lung-RADS category 1. Recommend 12 month follow up low dose chest CT. Reviewed, Interpreted and Dictated by Saul Hansen MD Transcribed by Kyra Duran Authenticated and [facility]
== END 2024-11-05 23:59 | disposition home or self-care (01) ==
LOC: RAD 14:54
PROVIDERS: PCP Internal Medicine Adolescent Medicine; Visit Provider Internal Medicine Adolescent Medicine
DX: Z87.891 Personal history of nicotine dependence (principal)
CPT/HCPCS: 71271

== ENCOUNTER 2025-01-30 18:15 | Emergency (ER) | payer MEDICARE, OTHER, SELFPAY ==
--- OUTSIDE RECORDS SUMMARY | 2024-11-28 17:30 | XMS_ITS ---
Author Organization formerly [facility] D [facility] Address [address] [place] [address] Care Team Providers Care Casualty Underwriter Name Role Phone Gregorio Ware Primary Care Provider [phone] Migration, Provider Unavailable Unavailable Allergies Allergen (clinical drug ingredient) Drug/Non Drug Allergy documented on EMR Reaction Allergy Type Onset Date Status duloxetine Cymbalta confusion Drug Allergy Active pregabalin Lyrica confusion Drug Allergy Active gemfibrozil Lopid increase in live r enzymes Drug Allergy Active gabapentin Neurontin Unknown Drug Allergy [facility] Conversion Encounter Medications Medication SIG (Take, Route, Frequency, Duration) Notes Start Date End Date Status Omeprazole 20 MG 1 cap(s) orally once a day for 90 days 10/19/2024 Active Lisinopril 20 MG 1/2 tab(s) orally once a day for 90 days Active Baclofen 20 MG 1 tab(s) orally 3 times a day for 90 Active Omeprazole 20 MG 1 cap(s) orally once a day prn for 90 Active Tamsulosin HCl 0.4 MG 2 capsules orally once a day for 90 days Active MOMETASONE FUROATE TOPICAL 0.1% 1 JODY APPLIED TOPICALLY ONCE A DAY for 7 DAYS *Please review for potential replacement for e-prescription and drug interaction check* 10/19/2024 Active Euthyrox 125 MCG (0.125 MG) TAKE 1 TABLET BY MOUTH ONCE DAILY for 90 *Please review and pick correct strength-formulation from [facility] options. If intended option is not shown, discontinue and re-order from Quick Search* Active fentaNYL pain pump *Pleas e review and pick correct strength-formulation from Medispan options. If intended option is not shown, discontinue and re-order from Quick Search* Active Encounters Encounter Location Date Provider Diagnosis [facility] [address] [facility] [address] [facility] [address] [place] [address] 11/28/2024 Provider Migration Essential hypertension I10 and GERD without esophagitis K21.9 Assessments Encounter Date Diagnosis (ICD Code) Assessment Notes Treatment Notes Treatment Clinical Notes Section Notes 11/28/2024 Essential hypertension (ICD-10 - I10) 11/28/2024 GERD without esophagitis (ICD-10 - K21.9) Plan Of Treatment Medication Medication Name Sig Start Date Stop Date Notes Omeprazole 20 MG 1 cap(s) orally once a day for 90 days 10/19/2024 Lisinopril 20 MG 1/2 tab(s) orally once a day for 90 days MOMETASONE FUROATE TOPICAL 0.1% 1 JODY APPLIED TOPICALLY ONCE A DAY for 7 DAYS 10/19/2024 *Please review for potential replacement for e-prescription and drug interaction check* Next Appt Details Provider Name:Gregorio Ware, 02/01/2025 09:15:00 AM, [address] [facility] [address] [facility], [address], [place], [address], Progress Notes * Naun DAVE LDOB:1950 (74 yo M)Acc No.[id number]:11/28/2024 Patient: Cecelia VLADIMIRNaun Petros Provider: Jackson Perry :1950 A ge:74 Y S ex:Male Date:11/28/2024 Address:[address] [id number] Pcp:Gregorio Ware Subjective: * Chief Complaints: * [...] Electronic signature of Lorena wong Migration on 01/30/2025 at 06:22 PM EDT Sign off status: Pending * Provider: Jackson santiago Migration Date: 11/28/2024 Generated for Abby toure/Veronica/Darrellitting on: 01/30/2025 06:22 PM EDT
--- OUTSIDE RECORDS SUMMARY | 2024-12-14 01:53 | XMS_ITS | Continuity of Care Document ---
Author Organization [facility] Phone Care Team Providers Care Driller And Broacher Name Role Phone CHRISTELLE LAMB Primary Attending HARVEY GARCIA Primary Care CHRISTELLE LAMB Admitting ALLERGIES AND ADVERSE REACTIONS ALLERGIES AND ADVERSE REACTIONS Code System Allergy Substance Adverse Reaction Date Reaction (Severity) Comment Status Reported By Updated By 7091 RXNorm Morphine Rash active [id number] on December 10, 2024 2:22:34 PM UTC 547309 RXNorm Lyrica Adverse reaction to substance made me crazy active [id number] on December 10, 2024 2:23:21 PM UTC 09977 RXNorm Gabapentin Adverse reaction to substance makes me crazy active [id number] on December 10, 2024 2:24:23 PM UTC RESULTS Patient: DARRICK Morrell Date of : 1950 5 LABORATORY RESULTS ORDER 200: COMP METABOLIC PA KANWAL (LOINC: 48695-7) ORDER DATE: December 10, 2024 3:56:00 PM UTC Specimen Source: PLASMA Specimen Type: Plasma specim en PERFORMING LAB: [address] [id number] Result Comment: Final Result Date: December 10, 2024 4:56:00 PM UTC (TECH: AAC) LOINC TEST FLAG RESULT REFERENCE RANGE UPDA OSVALDO BY 2951-2 Sodium [Moles/volume ] in Serum or Plasma N 138 mmol/L 136 mmol/L - 145 mmol/L December 10, 2024 4:56:00 PM UTC (TECH: AAC) 2823-3 Potassium [Moles/volume] in Serum or Plasma N 4.4 mmol/L 3.6 mmol/L - 5.0 mmol/L December 10, 2024 4:56:00 PM UTC (TECH: AAC) 5-0 Chloride [Moles/volu me] in Serum or Plasma N 102 mmol/L 98 mmol/L - 107 mmol/L December 10, 2024 4:56:00 PM UTC (TECH: AAC) 2027-9 Carbon dioxide, tota l [Moles/volume] in Serum or Plasma N 27.0 mmol/L 21.0 mmol/L - 32.0 mmol/L December 10, 2024 4:56:00 PM UTC (TECH: AAC) 31164-7 Anion gap in Blood N 13.4 A pril 2024 4:56:00 PM UTC (TECH: AAC) 2345-7 Glucose [Mass/volume ] in Serum or Plasma N 119 mg/dl 70 mg/dl - 120 mg/dl December 10, 2024 4:56:00 PM UTC (TECH: AAC) 6299-2 Urea nitrogen [Mass/volume] in Blood N 11 mg/dL 7 mg/dL - 18 mg/dL December 10, 2024 4:56:00 PM UTC (TECH: AAC) 51740-1 Creatinine [Moles/volume] in Blood H 1.5 mg/dL 0.6 mg/dL - 1.3 mg/dL December 10, 2024 4:56:00 PM UTC (TECH: AAC) 97323-2 Glomerular filtratio n rate/1.73 sq M.predicted by Creatinine-based formula (MDRD) L 48 mlpermin 60 mlpermin December 10, 2024 4:56:00 PM UTC (TECH: AAC) 52497-5 Osmolality of Serum or Plasma by calculated by sum of electrolytes N 288 mosm/kg 275 mosm/kg - 301 mosm/kg December 10, 2024 4:56:00 PM UTC (TECH: AAC) 2885-2 Protein [Mass/volume ] in Serum or Plasma N 7.7 g/dl 6.4 g/dl - 8.2 g/dl December 10, 2024 4:56:00 PM UTC (TECH: AAC) 1751-7 Albumin [Mass/volume ] in Serum or Plasma N 4.3 g/dl 3.4 g/dl - 5.0 g/dl December 10, 2024 4:56:00 PM UTC (TECH: AAC) 2336-6 Globulin [Mass/volum e] in Serum N 3.4 December 10, 2024 4:56:00 PM UTC (TECH: AAC) 1759-0 Albumin/Globulin [Ma ss Ratio] in Serum or Plasma N 1.3 0.7 - 2 December 10, 2024 4:56:00 PM UTC (TECH: AAC) 45493-7 Calcium [Mass/volume ] in Serum or Plasma N 9.1 mg/dl 8.5 mg/dl - 10.5 mg/dl December 10, 2024 4:56:00 PM UTC (TECH: AAC) 1975-2 Bilirubin.total [Mass/volume] in Serum or Plasma H 1.90 mg/dL 0.10 mg/dL - 1.00 mg/dL December 10, 2024 4:56:00 PM UTC (TECH: AAC) 1920-8 Aspartate aminotransferase [Enzymatic activity/volume] in Serum or Plasma N 12 U/L 0 U/L - 37 U/L December 10, 2024 4:56:00 PM UTC (TECH: AAC) 1742-6 Alanine aminotransferase [Enzymatic activity/volume] in Serum or Plasma N 18 U/L 0 U/L - 65 U/L December 10, 2024 4:56:00 PM UTC (TECH: AAC) 6768-6 Alkaline phosphatase [Enzymatic activity/volume] in Serum or Plasma L 39 U/L 46 U/L - 116 U/L December 10, 2024 4:56:00 PM UTC (TECH: AAC) ORDER 300: CBC AUTO W DIFF ( LOINC: 76064-3) ORDER DATE: December 10, 2024 3:56:00 PM [place] Specimen Source: EDTA Specimen Type: Blood specime n with EDTA PERFORMING LAB: [address] [id number] Result Comment: Final Result Date: December 10, 2024 4:11:00 PM UT (TECH: JCG) LOINC TEST FLAG RESULT REFERENCE RANGE UPDA OSVALDO BY 6690-2 Leukocytes [#/volume ] in Blood by Automated count N 5.5 K/ul 4.0 K/ul - 10.5 K/ul December 10, 2024 4:11:00 PM UTC (TECH: JCG) 789-8 Erythrocytes [#/volu me] in Blood by Automated count L 4.2 M/mm3 4.7 M/mm3 - 6.1 M/mm3 December 10, 2024 4:11:00 PM UTC (TECH: JCG) 718-7 Hemoglobin [Mass/volume] in Blood N 13.7 gm/dl 13.5 gm/dl - 18.0 gm/dl December 10, 2024 4:11:00 PM UTC (TECH: JCG) 70983-8 Hematocrit [Volume Fraction] of Blood L 40.8 % 42.0 % - 52.0 % December 10 4:11:00 PM UTC (TECH: JCG) 787-2 Erythrocyte mean corpuscular volume [Entitic volume] by Automated count N 96.2 fl 78 fl - 100 fl December 10, 2024 4:11:00 PM UTC (TECH: JCG) 785-6 Erythrocyte mean corpuscular hemoglobin [Entitic mass] by Automated count H 32.3 pg 27 pg - 31 pg December 10, 2024 4:11:00 PM UTC (TECH: JCG) 786-4 Erythrocyte mean corpuscular hemoglobin concentration [Mass/volume] by Automated count N 33.6 g/dl 32 g/dl - 36 g/dl December 10, 2024 4:11:00 PM UTC (TECH: JCG) 11358-4 Erythrocyte distribution width [Ratio] N 12.0 % 11.5 % - 14.0 % December 10, 2024 4:11:00 PM UTC (TECH: JCG) 777-3 Platelets [#/volume] in Blood by Automated count N 178 K/ul 150 K/ul - 450 K/ul December 10 4:11:00 PM UTC (TECH: JCG) 46462-8 Platelet mean volume [Entitic volume] in Blood by Automated count H 10.0 fl 6 fl - 9.5 fl December 10, 2024 4:11:00 PM UTC (TECH: JCG) 71961-4 Neutrophils/100 leukocytes in Blood N 63.9 % 43 % - 65 % December 10 4:11:00 PM UTC (TECH: JCG) 736-9 Lymphocytes/100 leukocytes in Blood by Automated count N 27.1 % 20.5 % - 45.5 % December 10, 2024 4:11:00 PM UTC (TECH: JCG) 5905-5 Monocytes/100 leukocytes in Blood by Automated count N 6.6 % 5.5 % - 11.7 % December 10, 2024 4:11:00 PM UTC (TECH: JCG) 713-8 Eosinophils/100 leukocytes in Blood by Automated count N 1.3 % 0.9 % - 2.9 % December 10, 2024 4:11:00 PM UTC (TECH: JCG) 706-2 Basophils/100 leukocytes in Blood by Automated count N 0.9 % 0.2 % - 1.0 % December 10, 2024 4:11:00 PM UTC (TECH: JCG) 25040-9 Immature granulocytes/100 leukocytes in Blood by Automated count N 0.2 % 0.0 % - 0.8 % December 10, 2024 4:11:00 PM UTC (TECH: JCG) 23713-8 Nucleated cells [#/volume] in Blood N 0.0 % December 10 4:11:00 PM UTC (TECH: JCG) 63817-6 Neutrophils [#/volum e] in Blood N 3.5 K/uL 2.2 K/uL - 4.8 K/uL December 10 4:11:00 PM UTC (TECH: JCG) 731-0 Lymphocytes [#/volum e] in Blood by Automated count N 1.5 CELL/MCL 1.3 CELL/MCL - 2.9 CELL/MCL December 10, 2024 4:11:00 PM UTC (TECH: JCG) 742-7 Monocytes [#/volume] in Blood by Automated count N 0.4 CELL/MCL 0.3 CELL/MCL - 0.8 CELL/MCL December 10, 2024 4:11:00 PM UTC (TECH: JCG) 711-2 Eosinophils [#/volum e] in Blood by Automated count N 0.1 CELL/MCL 0 CELL/MCL - 0.2 CELL/MCL December 10, 2024 4:11:00 PM UTC (TECH: JCG) 704-7 Basophils [#/volume] in Blood by Automated count N 0.1 CELL/MCL 0.0 CELL/MCL - 1.0 CELL/MCL December 10, 2024 4:11:00 PM UTC (TECH: JCG) 73949-0 Immature granulocyte s [#/volume] in Blood N 0.01 K/ul December 10 4:11:00 PM [facility] (TECH: [employer]) 77293-4 Nucleated cells [#/volume] in Blood N 0.00 K/uL December 10 4:11:00 PM [facility] (TECH: [employer]) 24357-3 Manual Differential panel - Blood N NO December 10, 2024 4:11:00 PM [facility] (TECH: [employer]) LABORATORY NARRATIVE RESULTS Information is not available RADIOLOGY RESULTS Information is not available PATHOLOGY NARRATIVE RESULTS Information is not available MICROBIOLOGY RESULTS No Micro Labs/Results Exist for Patient BLOOD ADMIN RESULTS Information is not available MEDICATIONS HOME MEDICATIONS Status RXNORM NDC Medication Dose Route Frequency Dates Comments Reported By Updated By Drug Treatment Unknown DISCHARGE MEDICATIONS Status RXNORM NDC Medication Dose Route Frequency Dates Comments Physician Updated By No Discharge Medication Info rmation Available INPATIENT MEDICATIONS Status RXNORM NDC Medication Dose Route Frequency Rat e Quantity Dates Comments Physician Updated By No Inpatient Medication Info rmation Available SOCIAL HISTORY SOCIAL HISTORY SNOMED-CT Social History Element Description Effective Dates Offered Cessation Comment UpdatedBy [id number] Smoking Status Unknown If Ever Smoked SOCIAL HISTORY - Gender Sex: Male SOCIAL HISTORY - Status : status i nformation is not available Intention in Next Year: intention information is not available SOCIAL HISTORY - Sexual Behavior Sexual Orientation Gender Identity SNOMED-CT Description SNO MED -CT Description Activity Level No of Partners Partner Type UpdatedBy Information is not available HEALTH CONCERNS Problems Concern Status Health Concern problem infor mation not available. Smoking Status Status Years Used Consumed packs p er day Health Concern smoking histo ry information not available. Family History Concern Status Health Concern family histor y information not available. ENCOUNTERS ENCOUNTER INFORMATION Reason for Visit LABS Admission December 10, 2024 3:50:00 PM [place] [id number] [facility] [id number] Discharge December 10, 2024 3:50:00 PM [facility] DI SCHARGED TO HOME OR SELF CARE ENCOUNTER DIAGNOSES Notes information is not ronak ilable. Code System Diagnosis Onset Date Diagnosis information is not available. ABSTRACT DIAGNOSES Code System Diagnosis Updated By M96.1 ICD10 POSTLAMINECTOMY SYNDROME, NOT ELSEWHERE CLASSIFIED [id number] on December 14, 2024 5:53:16 AM [facility] M96.1 ICD10 POSTLAMINECTOMY SYNDROME, NOT ELSEWHERE CLASSIFIED [id number] on December 14, 2024 5:53:17 AM [facility] CARE TEAM Care Driller And Broacher Role CHRISTELLE LABM Primary Attending HARVEY GARCIA Primary Care CHRISTELLE LAMB Admitting CARE TEAM CARE correspondence renew clerk Role on Team Status Start Date End Date Update d By JOSE GABRIEL PCP normal December 10 4:00:00 AM [facility] December 10, 2024 3:50:00 PM [facility] [id number] on December 10, 2024 3:51:15 PM [facility] ADONIS CASTLE Attending normal December 10, 2024 4:00:00 AM [facility] December 10, 2024 3:50:00 PM [facility] [id number] on December 10, 2024 3:51:15 PM [facility] ADONIS Ulrich PHY Admitting normal December 10, 2024 4:00:00 AM [facility] December 10, 2024 3:50:00 PM [facility] [id number] on December 10, 2024 3:51:15 PM [facility]
--- OUTSIDE RECORDS SUMMARY | 2024-12-15 15:37 | XMS_ITS | Continuity of Care Document ---
Author Organization [facility] Phone Care Team Providers Care Tannery Gummer Name Role Phone CHRISTELLE OLIVARES Surgeon NO, DEFINED P Primary Care Unavailable CHRISTELLE OLIVARES Unavailable CHRISTELLE OLIVARES Primary Attending CHRISTELLE OLIVARES Admitting ALLERGIES AND ADVERSE REACTIONS ALLERGIES AND ADVERSE REACTIONS Code System Allergy Substance Adverse Reaction Date Reaction (Severity) Comment Status Reported By Updated By 7052 RXNorm Morphine Rash active [id number] on December 10, 2024 2:22:34 PM [facility] 883672 RXNorm Lyrica Adverse reaction to substance made me crazy active [id number] on December 10, 2024 2:23:[place] [address] RXNorm Gabapentin Adverse reaction to substance makes me crazy active [id number] on December 10, 2024 2:24:23 PM [facility] ASSESSMENTS Post-laminectomy syndrome ; FAMILY HISTORY RELATION: Father Status: Cause of : Malignant neoplasm of lung Age at : Unknown SNOMED-CT Diagnosis Age At Onset Information not available RELATION: Mother Status: Cause of : Unknown Age at : Unknown SNOMED-CT Diagnosis Age At Onset [id number] Diabetes mellitus [id number] Heart disease PROBLEMS PATIENT PROBLEMS Code Description/Comments Category Status Upda bisi By [id number] Post-laminectomy syndrome active [id number] on December 07, 2024 12:56:51 PM [place] MEDICATIONS HOME MEDICATIONS Status RXNORM NDC Medication Dose Route Frequency Dates Comments Reported By Updated By Active 522875 17539 98158 0 Baclofen Oral Tablet 20 MG 20.0 MG ORAL TID Last Dose: [id number] on December 07, 2024 12:48:54 PM [facility] Active 6586214 83204 98914 5 fentaNYL Citrate (PF) Injection Solution 250 MCG/5ML 0.0 INTRAT HECAL CONT Last Dose: [id number] on December 07, 2024 12:49:30 PM [place] Active 820722 88546 97405 4 Levothyroxin e Sodium Oral Capsule 125 MCG 125.0 MCG ORAL DAILY Last Dose: [id number] on December 07, 2024 12:49:53 PM [place] Active 176478 38489 58356 1 Lisinopril Oral Tablet 20 MG 20.0 MG ORAL DAILY Last Dose: [id number] on December 07, 2024 12:55:34 PM [facility] Active 828154 53055 04668 2 Omeprazole Oral Capsule Delayed Release 20 MG 20.0 MG ORAL DAILY Last Dose: [id number] on December 07, 2024 12:55:54 PM [facility] Active 629343 54719 53139 1 Tamsulosin HCl Oral Capsule 0.4 MG 0.4 MG ORAL DAILY Last Dose: [id number] on December 07, 2024 12:56:17 PM [facility] DISCHARGE MEDICATIONS Status RXNORM [facility] Medication Dose Route Frequency Dates Comments Physician Updated By No Discharge Medication Info rmation Available [facility]PATIENT MEDICATIONS [facility] Medication Dose Route Frequency Rat e Quantity Dates Comments Physician Updated By Massimo inued 0027 0141 215 iopamidol 61% (ISOVUE-M 300) 15 ML SOLN 15.0 ML INTRAV ENOUS ONE TIME ONLY (SCHEDULED DOSE) Start: December 10, 2024 2:21:0 0 PM [place] End: December 10, 2024 2:21:0 0 PM [facility] MUNGABRIELA BOURGEOIS K INTERFAC ED on December 10, 2024 2:19:00 PM [facility] SOCIAL HISTORY SOCIAL HISTORY SNOMED-CT Social History Element Description Effective Dates Offered Cessation Comment UpdatedBy [id number] Historical Tobacco smoking status Current Every Day Smoker [id number] on December 14, 2024 8:04:06 PM [facility] SOCIAL HISTORY - Gender Sex: Male SOCIAL HISTORY - Status : status i nformation is not available Intention in Next Year: intention information is not available SOCIAL HISTORY - Sexual Behavior Sexual Orientation Gender Identity SNOMED-CT Description SNO MED -CT Description Activity Level No of Partners Partner Type UpdatedBy Information is not available VITAL SIGNS PATIENT VITAL SIGNS This section displays the mo st recent value for each vital sign as of December 15, 2024 7:37:02 PM UTC Loinc Code Vital Sign Activity Date Result Updated By 8310-5 Body temperature December 10, 2024 6:08:00 PM UTC 97.5 [degF] [id number] on December 10, 2024 6:08:49 PM UTC 8462-4 Diastolic blood pressure December 10, 2024 6:08:00 PM UTC 81.0 mm[Hg] [id number] on December 10, 2024 6:08:49 PM UTC 8867-4 Heart rate December 10, 2024 6:08:00 PM UTC 67 /min [id number] on December 10, 2024 6:08:49 PM UTC 59057-9 Oxygen saturation in Arterial blood by Pulse oximetry December 10, 2024 6:08:00 PM UTC 97.0 % [id number] on December 10, 2024 6:08:49 PM UTC 9279-1 Respiratory rate December 10, 2024 6:08:00 PM UTC 18 /min [id number] on December 10, 2024 6:08:49 PM UTC 8480-6 Systolic blood pressure November 6:08:00 PM UTC 161.0 mm[Hg] [id number] on December 10, 2024 6:08:49 PM UTC PEDIATRIC GROWTH CHART - VITAL SIGNS This section displays Head C ircumference Percentile, Weight for Length Percentile and BMI Percentile Loinc Code Pediatric Measure Age (Months) Result Updat ed By No Pediatric Growth Chart Pe rcentile Information Available. PROCEDURES PATIENT PROCEDURES Procedure information is not available. PROCEDURE NOTE Note Title [facility] - Post Procedur e Note Date Of Service December 10, 2024 8:32: 53 PM UTC Created By [id number] on December 10, 2024 8:32:53 PM UTC Signed By [id number] on December 14, 2024 5:50:01 PM UTC Procedure / Surgery None Catheter dye study Pre-Procedure Diagnosis Post-laminectomy syndrome Post- Procedure Diagnosis Post-laminectomy syndrome Procedure Description / Findings Intrathecal pain pump catheter study. The procedure was done under fluoroscopy. Under sterile condition the catheter port was accessed. I was unable to observe any CSF backflow. The dye was not injected since I was unable to get any fluid from the catheter access port and I did not want to bolus the patient with a medication that is in the intrathecal catheter. Upon analysis: I will proceed with the replacement of the pump and at that time I will observe for the CSF from the catheter. Anesthesia Type Local anesthesia Specimens None Implants Not applicable Procedure Verfication Patient identity confirmed before operative/invasive procedure, Procedure time out, Verification of surgical site/laterality, Verification of surgical device count Estimated Blood Loss None Complications None Disposition of Patient Home Electronically signed by ADONIS CASTLE on 1350 HEALTH CONCERNS Problems Concern Status Health Concern problem infor mation not available. Smoking Status Status Years Used Consumed packs p er day Health Concern smoking histo ry information not available. Family History Concern Status Health Concern family histor y information not available. ENCOUNTERS ENCOUNTER INFORMATION Reason for Visit CATHETER DYE STUDY Admission December 10, 2024 1:40:[address] [address] Discharge December 10, 2024 9:40:00 PM [place] DI SCHARGED TO HOME OR SELF CARE ENCOUNTER DIAGNOSES Notes information is not ronak ilable. Code System Diagnosis Onset Date Diagnosis information is not available. 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, LUMBAR REGION WITHOUT NEUROGENIC CLAUDICATION [id number] on December 15, 2024 7:36:25 PM [facility] M79.606 ICD10 PAIN IN LEG, UNSPECIFIED OIK 7837 on December 15, 2024 7:36:25 PM [facility] CARE TEAM Care Tannery Gummer Role CHRISTELLE OLIVARES Surgeon DEFINED NO Primary Care CHRISTELLE OLIVARES Referring CHRISTELLE OLIVARES Primary Attending CHRISTELLE OLIVARES Admitting HOSPITAL DISCHARGE INSTRUCTION DISCHARGE INSTRUCTION Encounter [id number] Admit Date December 10, 2024 1:40: 00 PM [place] Discharge Date December 10, 2024 9:40: 00 PM [facility] PATIENT EDUCATION SUMMARY Patient/Visit Information: Patient Name: ALEXANDRIANathen HOLLINGSWORTH Diag: Attending Caregiver: ADONIS Ulrich Discharge Instruction Sheets Provided: BEFAST-Stroke Warning Signs COVID-19 CDC-EN Discharge Information Dr. Olivares General Discharge Fall Prevention in Hospitals and in the Home [facility] Pain and Responsible Opioid (Pain Medication) Management KYNECT- HELP Medication Side Effects Suicide - Managing your Feelings Patient Instructions: Followup Appointments/Instructions: CARE TEAM CARE photographer aerial Role on Team Status Start Date End Date Update d By ADONIS CASTLE Surgeon normal December 10, 2024 1:40:00 PM [place] December 10, 2024 9:40:00 PM UTC [id number] on December 15, 2024 7:36:30 PM [place] NO DEFINED PRIMARY C PCP normal November 25, 2024 3:11:06 PM [place] December 10, 2024 9:40:00 PM UTC [id number] on December 15, 2024 7:36:30 PM [place] ADONIS CASTLE Referring normal November 25, 2024 3:11:06 PM [place] December 10, 2024 9:40:00 PM UTC [id number] on December 15, 2024 7:36:30 PM [place] ADONIS CASTLE Attending normal November 25, 2024 3:11:06 PM [place] December 10, 2024 9:40:00 PM UTC [id number] on December 15, 2024 7:36:30 PM [place] ADONIS CASTLE Admitting normal November 25, 2024 3:11:06 PM UTC December 10, 2024 9:40:00 PM UTC [id number] on December 15, 2024 7:36:30 PM [place]
--- OUTSIDE RECORDS SUMMARY | 2024-12-24 22:16 | XMS_ITS | Continuity of Care Document ---
Author Organization [facility] Phone Care Team Providers Care Technology Sales Representative Name Role Phone CHRISTELLE OLIVARES Primary Attending [phone] CHRISTELLE OLIVARES Unavailable HARVEY GARCIA Primary Care CHRISTELLE OLIVARES Admitting CHRISTELLE OLIVARES Surgeon ALLERGIES AND ADVERSE REACTIONS ALLERGIES AND ADVERSE REACTIONS Code System Allergy Substance Adverse Reaction Date Reaction (Severity) Comment Status Reported By Updated By 7052 RXNorm Morphine Rash active [id number] on December 21, 2024 6:50:04 PM UT [id number] RXNorm Lyrica Adverse reaction to substance made me crazy active [id number] on December 21, 2024 6:50:[place] [address] RXNorm Gabapentin Adverse reaction to substance makes me crazy active [id number] on December 21, 2024 6:50:04 PM UT ASSESSMENTS Chronic pain syndrome ; FAMILY HISTORY RELATION: Father Status: Cause of : Malignant neoplasm of lung Age at : Unknown SNOMED-CT Diagnosis Age At Onset Information not available RELATION: Mother Status: Cause of : Unknown Age at : Unknown SNOMED-CT Diagnosis Age At Onset [id number] Diabetes mellitus [id number] Heart disease PROBLEMS PATIENT PROBLEMS Code Description/Comments Category Status Upda bisi By [id number] Chronic pain syndrome active NVA 5542 on December 22, 2024 10:57:36 AM UT RESULTS Patient: DARRICK Morrell Date of : 1950 5 LABORATORY RESULTS Information is not available LABORATORY NARRATIVE RESULTS Information is not available RADIOLOGY RESULTS Information is not available PATHOLOGY NARRATIVE RESULTS ORDER 500: PATHOLOGY SPECIME N (LOINC: 80523-0) ORDER DATE: December 22, 2024 6:00:00 PM UT Specimen Source: PATH Specimen Type: Refer to path ology laboratory PERFORMING LAB: [place] [id number] [facility] [id number] Final Result Date: December 24 6:16:00 PM UT TEST: PATHOLOGY SPECIMEN MICROBIOLOGY RESULTS No Micro Labs/Results Exist for Patient BLOOD ADMIN RESULTS Information is not available TREATMENT PLAN DISCHARGE MEDICATIONS Status RXNORM Medication Dose Route Frequency Dates Comments U pdated By Continued 638481 Baclofen Oral Tablet 20 MG 20 MG ORAL THREE TIMES A DAY Prescri bed: December 22, 2024 6:08:33 PM RUST [id number] on December 22, 2024 6:08:33 PM RUST Continued 167408 Levothyroxine Sodium Oral Capsule 125 MCG 125 MCG ORAL ONCE DAILY Prescri bed: December 22, 2024 6:08:33 PM RUST [id number] on December 22, 2024 6:08:33 PM RUST Continued [id number] Tamsulosin HCl Oral Capsule 0.4 MG 0.4 MG ORAL ONCE DAILY Prescri bed: December 22, 2024 6:08:33 PM RUST [id number] on December 22, 2024 6:08:33 PM RUST Continued 8387741 fentaNYL Citrate (PF) Injection Solution 250 MCG/5ML 0 Continuous Prescri bed: December 22, 2024 6:08:33 PM RUST [id number] on December 22, 2024 6:08:33 PM RUST Continued 802764 Lisinopril Oral Tablet 20 MG 20 MG ORAL ONCE DAILY Prescri bed: December 22, 2024 6:08:33 PM RUST [id number] on December 22, 2024 6:08:33 PM RUST Continued 957110 Omeprazole Oral Capsule Delayed Release 20 MG 20 MG ORAL ONCE DAILY NEEDED Prescri bed: December 22, 2024 6:08:33 PM RUST [id number] on December 22, 2024 6:08:33 PM RUST Continued 617440 Cephalexin Oral Tablet 500 MG 1 TAB ORAL EVERY EIGHT HOURS Prescri bed: December 22, 2024 6:08:33 PM RUST Take one tablet by mouth every 8 hours for 7 days [id number] on December 22, 2024 6:08:33 PM RUST PATIENT OPEN ORDERS Code System Description Frequency Occurrences Priority Start Date Ordering Physician Updated By Patient open order informati on is not available. SCHEDULED PROCEDURES Code System Description Status Scheduled Date Upd ated By Patient scheduled procedure information is not available. MEDICATIONS HOME MEDICATIONS Status RXNORM [facility] Medication Dose Route Frequency Dates Comments Reported By Updated By Active [id number] 28138 10185 0 Baclofen Oral Tablet 20 MG 20.0 MG ORAL TID Last Dose: December 22, 2024 1:00:0 0 AM RUST [id number] on December 22, 2024 1:37:12 PM RUST Active 4398872 58683 51757 5 fentaNYL Citrate (PF) Injection Solution 250 MCG/5ML 0.0 CONT Last Dose: December 22, 2024 1:37:0 0 PM RUST [id number] on December 22, 2024 6:08:10 PM RUST Active 703405 01524 43505 4 Levothyroxin e Sodium Oral Capsule 125 MCG 125.0 MCG ORAL DAILY Last Dose: December 22, 2024 10:00: 00 AM RUST [id number] on December 22, 2024 1:37:49 PM RUST Active 213206 98336 05101 1 Lisinopril Oral Tablet 20 MG 20.0 MG ORAL DAILY Last Dose: December 22, 2024 10:00: 00 AM RUST [id number] on December 22, 2024 1:37:59 PM RUST Active 554689 80290 32849 2 Omeprazole Oral Capsule Delayed Release 20 MG 20.0 MG ORAL DAILYPRN Last Dose: December 15, 2024 12:00: 00 PM RUST [id number] on December 22, 2024 6:08:20 PM RUST Active 933191 76601 28412 1 Tamsulosin HCl Oral Capsule 0.4 MG 0.4 MG ORAL DAILY Last Dose: December 22, 2024 1:00:0 0 AM RUST [id number] on December 22, 2024 1:38:28 PM [facility]UST DISCHARGE MEDICATIONS Status RXNORM [facility] Medication Dose Route Frequency Dates Comments Physician Updated By Marianne d [id number] 8625 2409 780 Baclofen Oral Tablet 20 MG 20.0 MG ORAL THREE TIMES A DAY Prescr ibed: December 22, 2024 6:08:3 3 PM RUST ADONIS Ulrich PHY [id number] on December 22, 2024 6:08:33 PM RUST Continue d 687441 9649 7004 004 Levothyroxi ne Sodium Oral Capsule 125 MCG 125.0 MCG ORAL ONCE DAILY Prescr ibed: December 22, 2024 6:08:3 3 PM UT ADONIS Ulrich Y [id number] on December 22, 2024 6:08:33 PM UT Continue d 439119 3294 1207 601 Tamsulosin HCl Oral Capsule 0.4 MG 0.4 MG ORAL ONCE DAILY Prescr ibed: December 22, 2024 6:08:3 3 PM UT THELMABRICEMAURO BOURGEOIS K PHY [id number] on December 22, 2024 6:08:33 PM UT Continue d 7479411 6339 9909 425 fentaNYL Citrate (PF) Injection Solution 250 MCG/5ML 0.0 Continuous Prescr ibed: December 22, 2024 6:08:3 3 PM UT THELMABRICEMAURO BOURGEOIS K Y [id number] on December 22, 2024 6:08:33 PM UT Continue d 920338 7643 1040 801 Lisinopril Oral Tablet 20 MG 20.0 MG ORAL ONCE DAILY Prescr ibed: December 22, 2024 6:08:3 3 PM UT THELMAAKMAURO Ulrich Y [id number] on December 22, 2024 6:08:33 PM UT Continue d 359252 0442 5011 832 Omeprazole Oral Capsule Delayed Release 20 MG 20.0 MG ORAL ONCE DAILY NEEDED Prescr ibed: December 22, 2024 6:08:3 3 PM UT THELMABRICEMAURO BOURGEOIS K PHY [id number] on December 22, 2024 6:08:33 PM UT Continue d 848230 8334 3224 001 Cephalexin Oral Tablet 500 MG 1.0 TAB ORAL EVERY EIGHT HOURS Prescr ibed: December 22, 2024 6:08:3 3 PM UT Take one tablet by mouth every 8 hours for 7 days ADONIS BOURGEOIS K PHY [id number] on December 22, 2024 6:08:33 PM UT INPATIENT MEDICATIONS Status RXNORM [facility] Medication Dose Route Frequency Rat e Quantity Dates Comments Physician Updated By Massimo inued 116105 7386 8014 704 LACTATED RINGERS SOLN 1000. 0 ML INTRAV ENOUS ONE TIME ADMINISTRA TION (UNSCHEDUL ED) 25.0 ML/HR Start: December 21, 2024 6:47:0 0 PM UTC End: December 22, 2024 1:39:2 9 PM UTC JUAN PABLO Flower [id number] on December 22, 2024 1:39:00 PM UTC Discont inued 970539 9862 8011 704 LACTATED RINGERS SOLN 1000. 0 ML INTRAV ENOUS ONE TIME ONLY (PACU) 25.0 ML/HR Start: December 21, 2024 6:47:0 0 PM UTC End: December 22, 2024 6:08:3 3 PM UTC JUAN PABLO Flower [id number] on December 23, 2024 4:25:00 AM UTC Discont inued 9384410 0040 9117 630 meperidine (DEMEROL) 25 MG/ML SOLN 12.5 MG INTRAV ENOUS NEEDED (PACU) Start: December 21, 2024 6:47:0 0 PM UTC End: December 22, 2024 6:08:3 3 PM UTC JUAN PABLO Flower [id number] on December 23, 2024 4:25:00 AM UTC Discont inued 5691920 0040 9117 630 meperidine (DEMEROL) 25 MG/ML SOLN 25.0 MG INTRAV ENOUS NEEDED (PACU) Start: December 21, 2024 6:47:0 0 PM UTC End: December 22, 2024 6:08:3 3 PM UTC JUAN PABLO Flower [id number] on December 23, 2024 4:25:00 AM UTC Discont inued 0728094 0064 1624 725 fentaNYL (SUBLIMAZE) 50 MGC/ML SOLN 25.0 MCG INTRAV ENOUS EVERY 5 MINUTES NEEDED (PACU) Start: December 21, 2024 6:47:0 0 PM UTC End: December 22, 2024 6:08:3 3 PM UTC JUAN PABLO Flower [id number] on December 23, 2024 4:25:00 AM UTC Discont inued 9104287 0064 1624 725 fentaNYL (SUBLIMAZE) 50 MGC/ML SOLN 50.0 MCG INTRAV ENOUS EVERY 5 MINUTES NEEDED (PACU) Start: December 21, 2024 6:47:0 0 PM UTC End: December 22, 2024 6:08:3 3 PM UTC JUAN PABLO Flower [id number] on December 23, 2024 4:25:00 AM UTC Discont inued [id number] 7314 9426 401 HYDROmorpho ne (DILAUDID) 0.5 MG/0.5ML SOLN 0.5 MG INTRAV ENOUS EVERY 10 MINUTES NEEDED (PACU) Start: December 21, 2024 6:47:0 0 PM UTC End: December 22, 2024 6:08:3 3 PM UTC JUAN PABLO Flower [id number] on December 23, 2024 4:25:00 AM UTC Discont inued 8743347 2389 9128 331 HYDROmorpho ne (DILAUDID) 1 MG/ML SOLN 1.0 MG INTRAV ENOUS EVERY 10 MINUTES NEEDED (PACU) Start: December 21, 2024 6:47:0 0 PM UTC End: December 22, 2024 6:08:3 3 PM UTC JUAN PABLO Flower [id number] on December 23, 2024 4:25:00 AM UTC Discont inued 7584819 4866 8010 250 PERCOCET 5-325 MG TABS 1.0 TAB ORAL ONE TIME ADMINISTRA TION (UNSCHEDUL ED) Start: December 21, 2024 6:47:0 0 PM UTC End: December 22, 2024 6:08:3 3 PM UTC JUAN PABLO Flower [id number] on December 23, 2024 4:25:00 AM UTC Discont inued 1523783 8214 8010 250 PERCOCET 5-325 MG TABS 2.0 TAB ORAL ONE TIME ADMINISTRA TION (UNSCHEDUL ED) Start: December 21, 2024 6:47:0 0 PM UTC End: December 22, 2024 6:08:3 3 PM UTC JUAN PABLO Flower [id number] on December 23, 2024 4:25:00 AM UTC Discont inued 3003659 3855 5613 000 ondansetron (ZOFRAN) INJ 4 MG/2 ML SOLN 4.0 MG INTRAV ENOUS NEEDED (PACU) Start: December 21, 2024 6:47:0 0 PM UTC End: December 22, 2024 6:08:3 3 PM UTC JUAN PABLO Flower [id number] on December 23, 2024 4:25:00 AM UTC Discont inued 8608866 0051 7970 201 droperidol (INAPSINE) 2.5 MG/ML SOLN 0.625 MG INTRAV ENOUS NEEDED (PACU) Start: December 21, 2024 6:47:0 0 PM UTC End: December 22, 2024 6:08:3 3 PM UTC JUAN PABLO Flower [id number] on December 23, 2024 4:25:00 AM UTC Discont inued 3579150 6785 3041 112 midazolam (VERSED) 2 MG/2 ML SOLN 1.0 MG INTRAV ENOUS EVERY FIVE MINUTES NEEDED Start: December 21, 2024 6:47:0 0 PM UTC End: December 22, 2024 6:08:3 3 PM UTC JUAN PABLO Flower [id number] on December 23, 2024 4:25:00 AM UTC Discont inued 2164349 9099 3041 112 midazolam (VERSED) 2 MG/2 ML SOLN 2.0 MG INTRAV ENOUS NEEDED (PACU) Start: December 21, 2024 6:47:0 0 PM UTC End: December 22, 2024 6:08:3 3 PM UTC JUAN PABLO Flower [id number] on December 23, 2024 4:25:00 AM UTC Discont inued 969360 1022 1092 825 promethazin e (PHENERGAN) 25 MG/ML SOLN 12.5 MG INTRAV ENOUS NEEDED (PACU) Start: December 21, 2024 6:47:0 0 PM UTC End: December 22, 2024 6:08:3 3 PM UTC JUAN PABLO Flower [id number] on December 23, 2024 4:25:00 AM UTC Discont inued XXXX XXX0 011 promethazin e (PHENERGAN) 12.5 MG GEL 12.5 MG TOPICA L NEEDED (PACU) Start: December 21, 2024 6:47:0 0 PM UTC End: December 22, 2024 6:08:3 3 PM UTC JUAN PABLO Flower [id number] on December 23, 2024 4:25:00 AM UTC Discont inued [id number] 7568 7084 001 ceFAZolin (ANCEF) 2 GM SOLR 2.0 GM INTRAV ENOUS ONE TIME ADMINISTRA TION (UNSCHEDUL ED) Start: December 22, 2024 10:59: 00 AM UTC End: December 22, 2024 1:39:3 1 PM UTC CAMRYN Zee [id number] on December 22, 2024 1:39:00 PM UTC Discont inued 6443287 2125 5623 105 ceFAZolin (ANCEF) 2 GM SOLR 2.0 GM INTRAV ENOUS ONE TIME ONLY (SCHEDULED DOSE) Start: December 22, 2024 1:33:0 0 PM UTC End: December 22, 2024 1:33:0 0 PM UTC MUNISWAMY CHRISTELLE K INTERFAC ED on December 22, 2024 1:32:00 PM UTC Discont inued 4190427 6872 9909 332 PACU - fentaNYL (SUBLIMAZE) 100 MCG/2ML SOLN 100.0 MCG INTRAV ENOUS ONE TIME ONLY (SCHEDULED DOSE) Start: December 22, 2024 4:56:0 0 PM UTC End: December 22, 2024 4:56:0 0 PM UTC [facility] CH[facility]STELLE [facility] INTERFAC ED on December 22, 2024 4:55:00 PM UTC Discont inued 7126 6908 001 ketamine (KETALAR) 20 MG/2ML SOSY 20.0 MG INTRAV ENOUS ONE TIME ONLY (SCHEDULED DOSE) Start: December 22, 2024 5:08:0 0 PM UTC End: December 22, 2024 5:08:0 0 PM UTC MUNISWAMY CHRISTELLE K INTERFAC ED on December 22, 2024 5:08:00 PM UT SOCIAL HISTORY SOCIAL HISTORY SNOMED-CT Social History Element Description Effective Dates Offered Cessation Comment UpdatedBy [id number] Current Tobacco smoking status Current Every Day Smoker [id number] on December 22, 2024 1:38:50 PM UT SOCIAL HISTORY - Gender Sex: Male SOCIAL [...] for each vital sign as of December 25, 2024 2:16:49 AM UT Loinc Code Vital Sign Activity Date Result Updated By 8302-2 Body height December 22, 2024 1:26:04 PM UTC 187.96 cm (74.0 in) [id number] on December 22, 2024 1:26:[place] [address]-8 Body mass index (BMI) [Ratio] December 22, 2024 1:26:04 PM UTC 25.135 kg/m2 [id number] on December 22, 2024 1:26:04 PM UT 3140-1 Body Surface Area Derived From Formula December 22, 2024 1:26:04 PM UTC 2.1535 m2 [id number] on December 22, 2024 1:26:[place] [address]-9 Body weight Measured December 22 025 1:26:04 PM UTC 88.8 kg (196.0 lb) [id number] on December 22, 2024 1:26:04 PM UT PEDIATRIC GROWTH CHART - VITAL SIGNS This section displays Head C ircumference Percentile, Weight for Length Percentile and BMI Percentile Loinc Code Pediatric Measure Age (Months) Result Updat ed By No Pediatric Growth Chart Pe rcentile Information Available. PROCEDURES HEALTH CONCERNS Problems Concern Status Health Concern problem infor mation not available. Smoking Status Status Years Used Consumed packs p er day Health Concern smoking histo ry information not available. Family History Concern Status Health Concern family histor y information not available. ENCOUNTERS ENCOUNTER INFORMATION Reason for Visit [facility] REPLACEMENT P[facility] TO [facility] Admission December 22, 2024 12:34:00 PM UTC G [address] [address] Discharge December 22, 2024 8:34:00 PM UTC DI SCHARGED TO HOME OR SELF CARE ENCOUNTER DIAGNOSES Notes information is not ronak ilable. Code System Diagnosis Onset Date Diagnosis information is not available. 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 [id number] on December 24, 2024 3:17:50 PM UT E07.9 ICD10 DISORDER OF THYROID, UNSPECI FIED [id number] on December 24, 2024 3:17:50 PM UT Z79.82 ICD10 HEAD OF MOBILE (CURRENT) USE OF A SPIRIN [id number] on December 24, 2024 3:17:50 PM UT Z79.899 ICD10 OTHER HEAD OF MOBILE (CURRENT) DR JENNIFER THERAPY [id number] on December 24, 2024 3:17:50 PM UT Z88.5 ICD10 ALLERGY STATUS TO NARCOTIC A GENT [id number] on December 24, 2024 3:17:50 PM UT Z88.1 ICD10 ALLERGY STATUS T O OTHER ANTIBIOTIC AGENTS [id number] on December 24, 2024 3:17:50 PM UT Z88.8 ICD10 ALLERGY STATUS T O OTHER DRUGS, MEDICAMENTS AND BIOLOGICAL SUBSTANCES [id number] on December 24, 2024 3:17:50 PM [facility] CARE TEAM Care Technology Sales Representative Role CHRISTELLE OLIVARES Primary Attending CHRISTELLE OLIVARES Referring HARVEY GARCIA Primary Care CHRISTELLE OLIVARES Admitting CHRISTELLE OLIVARES Surgeon HOSPITAL DISCHARGE INSTRUCTION DISCHARGE INSTRUCTION Encounter [id number] Admit Date December 22, 2024 12:34 :00 PM RUST Discharge Date December 22, 2024 8:34: 00 PM RUST PATIENT EDUCATION SUMMARY Patient/Visit Information: Patient Name: ALEXANDRIA HOLLINGSWORTH Diag: Attending Caregiver: ADONIS Ulrich Discharge Instruction Sheets Provided: Anesthesia, [facility] DC Instructions After BEFAST-Stroke Warning Signs COVID-19 CDC-EN Discharge Information Dr. Olivares - Pain Pump Fall Prevention in Hospitals and in the Home [facility] Pain and Responsible Opioid (Pain Medication) Management KYNECT- HELP Medication Side Effects Suicide - Managing your Feelings Patient Instructions: Followup Appointments/Instructions: CARE TEAM CARE card seller Role on Team Status Start Date End Date Update d By ADONIS CASTLE Surgeon normal December 22, 2024 12:34:00 PM RUST December 22, 2024 8:34:00 PM RUST [id number] on December 24, 2024 3:17:58 PM RUST ADONIS CASTLE Referring normal December 22, 2024 12:34:51 PM UT December 22, 2024 8:34:00 PM RUST [id number] on December 24, 2024 3:17:58 PM UT JOSE GABRIEL PCP normal December 14 6:26:21 PM UTC December 22, 2024 8:34:00 PM UTC [id number] on December 24, 2024 3:17:58 PM UT ADONIS CASTLE Attending normal December 14, 2024 6:26:21 PM UTC December 22, 2024 8:34:00 PM UT [id number] on December 24, 2024 3:17:58 PM UT ADONIS CASTLE Admitting normal December 14, 2024 6:26:20 PM UTC December 22, 2024 8:34:00 PM UTC [id number] on December 24, 2024 3:17:58 PM UTC
--- OUTSIDE RECORDS SUMMARY | 2024-12-31 13:47 | XMS_ITS | Continuity of Care Document ---
Author Organization [facility] Phone Care Team Providers Care Hydrogenation Still Operator Name Role Phone CHRISTELLE LAMB Unavailable CHRISTELLE LAMB Surgeon CHRISTELLE LAMB Admitting HARVEY GARCIA Primary Care CHRISTELLE LAMB Primary Attending ALLERGIES AND ADVERSE REACTIONS ALLERGIES AND ADVERSE REACTIONS Code System Allergy Substance Adverse Reaction Date Reaction (Severity) Comment Status Reported By [place] By 7052 RXNorm Morphine Rash active [id number] on December 21, 2024 6:50:04 PM UT 932997 RXNorm Lyrica Adverse reaction to substance made me crazy active [id number] on December 21, 2024 6:50:[place] [address] RXNorm Gabapentin Adverse reaction to substance makes me crazy active [id number] on December 21, 2024 6:50:04 PM UT FAMILY HISTORY RELATION: Father Status: Cause of : Malignant neoplasm of lung Age at : Unknown SNOMED-CT Diagnosis Age At Onset Information not available RELATION: Mother Status: Cause of : Unknown Age at : Unknown SNOMED-CT Diagnosis Age At Onset [id number] Diabetes mellitus [id number] Heart disease MEDICATIONS HOME MEDICATIONS Status RXNORM NDC Medication [...] Description Effective Dates Offered Cessation Comment UpdatedBy [id number] Historical Tobacco smoking status Current Every Day Smoker [id number] on December 22, 2024 1:38:50 PM UTC SOCIAL HISTORY - Gender Sex: Male SOCIAL [...] available. ENCOUNTERS ENCOUNTER INFORMATION Reason for Visit OV Admission December 25, 2024 11:48:[address] [address] Discharge December 25, 2024 11:48:00 AM [facility] DISC HARGED TO HOME OR SELF CARE ENCOUNTER DIAGNOSES Notes information is not ronak ilable. Code System Diagnosis Onset Date Diagnosis information is not available. 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 [id number] on December 31, 2024 5:47:24 PM [facility] 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, LUMBAR REGION WITHOUT NEUROGENIC CLAUDICATION [id number] on December 31, 2024 5:47:24 PM [facility] M79.606 ICD10 PAIN IN LEG, UNSPECIFIED OIK 7837 on December 31, 2024 5:47:24 PM [facility] Z97.8 ICD10 PRESENCE OF OTHER SPECIFIED DEVICES [id number] on December 31, 2024 5:47:24 PM [facility] CARE TEAM Care Hydrogenation Still Operator Role CHRISTELLE LAMB Referring CHRISTELLE LAMB Surgeon CHRISTELLE LAMB Admitting HARVEY GARCIA Primary Care CHRISTELLE LAMB Primary Attending CARE TEAM CARE mine supervisor Role on Team Status Start Date End Date Update d By ADONIS CASTLE Surgeon normal December 25, 2024 11:48:00 AM UT December 25, 2024 11:48:00 AM UTC [id number] on December 31, 2024 5:47:30 PM UT JOSE GABRIEL PCP normal December 25, 2024 4:00:00 AM UT December 25, 2024 11:48:00 AM UTC [id number] on December 31, 2024 5:47:30 PM UT ADONIS CASTLE Referring normal December 25, 2024 4:00:00 AM [facility] December 25, 2024 11:48:00 AM UT [id number] on December 31, 2024 5:47:30 PM [facility] ADONIS CASTLE Attending normal December 25, 2024 4:00:00 AM [facility] December 25, 2024 11:48:00 AM UT [id number] on December 31, 2024 5:47:30 PM UT ADONIS CASTLE Admitting normal December 25, 2024 4:00:00 AM UT December 25, 2024 11:48:00 AM UTC [id number] on December 31, 2024 5:47:30 PM UT
--- OUTSIDE RECORDS SUMMARY | 2025-01-04 08:34 | XMS_ITS | Continuity of Care Document ---
Author Organization [facility] Phone Care Team Providers Care Kettle Tender Name Role Phone CHRISTELLE LAMB Admitting CHRISTELLE LAMB Unavailable HARVEY GARCIA Primary Care CHRISTELLE LAMB Primary Attending [phone] ALLERGIES AND ADVERSE REACTIONS ALLERGIES AND ADVERSE REACTIONS Code System Allergy Substance Adverse Reaction Date Reaction (Severity) Comment Status Reported By Updated By [id number] RXNorm Morphine Rash active [id number] on December 21, 2024 6:50:04 PM [facility] [id number] RXNorm Lyrica Adverse reaction to substance made me crazy active [id number] on December 21, 2024 6:50:04 PM [facility] [id number] RXNorm Gabapentin Adverse reaction to substance makes me crazy active [id number] on December 21, 2024 6:50:04 PM [facility] FAMILY HISTORY RELATION: Father Status: Cause of : Malignant neoplasm of lung Age at : Unknown SNOMED-CT Diagnosis Age At Onset Information not available RELATION: Mother Status: Cause of : Unknown Age at : Unknown SNOMED-CT Diagnosis Age At Onset [id number] Diabetes mellitus [id number] Heart disease MEDICATIONS HOME MEDICATIONS Status RXNORM [...] Description Effective Dates Offered Cessation Comment UpdatedBy [id number] Historical Tobacco smoking status Current Every Day Smoker [id number] on December 22, 2024 1:38:50 PM [facility] SOCIAL HISTORY - Gender Sex: Male SOCIAL [...] INFORMATION Reason for Visit OV Admission December 28, 2024 5:18:[address] [id number] Discharge December 28, 2024 5:18:00 PM [facility] DISCH ARGED TO HOME OR SELF CARE ENCOUNTER DIAGNOSES Notes information is not ronak ilable. Code System Diagnosis Onset Date Diagnosis information is not available. 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, LUMBAR REGION WITHOUT NEUROGENIC CLAUDICATION [id number] on January 04, 2025 12:33:39 PM [facility] M79.606 ICD10 PAIN IN LEG, UNSPECIFIED [id number] on January 04, 2025 12:33:39 PM [facility] Z97.8 ICD10 PRESENCE OF OTHER SPECIFIED DEVICES [id number] on January 04, 2025 12:33:39 PM [facility] CARE TEAM Care Kettle Tender Role CHRISTELLE LAMB Admitting CHRISTELLE LAMB Referring HARVEY GARCIA Primary Care CHRISTELLE LAMB Primary Attending CARE TEAM CARE rat trapper Role on Team Status Start Date End Date Update d By JOSE GABRIEL PCP normal December 28, 2024 4:00:00 AM [place] December 28, 2024 5:18:00 PM [place] [id number] on December 28, 2024 5:19:14 PM [place] ADONIS CASTLE Referring normal December 28, 2024 4:00:00 AM [place] December 28, 2024 5:18:00 PM [place] [id number] on December 28, 2024 5:19:14 PM [facility] ADONIS CASTLE Attending normal December 28, 2024 4:00:00 AM [facility] December 28, 2024 5:18:00 PM [place] [id number] on December 28, 2024 5:19:14 PM [facility] ADONIS CASTLE Admitting normal December 28, 2024 4:00:00 AM [facility] December 28, 2024 5:18:00 PM [place] [id number] on December 28, 2024 5:19:14 PM [place]
[2025-01-30] VITALS (7 sets, daily range): BP systolic 116–155; BP diastolic 60–78; PULSE 72–93; RESP 15–20; TEMP 36.7; O2SAT 95–100; BMI 26.3
--- NOTE | 2025-01-30 18:19 | XR_ITS ---
PROCEDURE INFORMATION: Exam: XR Chest Exam date and time: 01/30/2025 6:56 PM Age: 74 years old Clinical indication: Shortness of breath; Additional info: Short of breath TECHNIQUE: Imaging protocol: Radiologic exam of the chest. Views: 1 view. COMPARISON: CT LUNG SCREENING 11/05/2024 3:00 PM FINDINGS: Lungs: Unremarkable. No consolidation. Pleural spaces: Unremarkable. No pleural effusion. No pneumothorax. Heart/Mediastinum: Unremarkable. No cardiomegaly. Bones/joints: Unremarkable. IMPRESSION: No acute findings.
--- NOTE | 2025-01-30 18:19 | ECG_ITS ---
APPROVED REPORT Exam: Resting ECG HR:91 bpm ECG Measurements Heart Rate 91 AXES AR 175 P 81 QRSd 131 QRS 90 QT 362 T 67 QTc 411 Conclusion SINUS RHYTHM RIGHT BUNDLE BRANCH BLOCK [120+ ms QRS DURATION, UPRIGHT V1, 40+ ms S IN I/aVL/V4/V5/V6] ABNORMAL ECG UNCONFIRMED REPORT Electronically signed by : Chano Alejandro, 01/30/2025 23:21:20
--- NOTE | 2025-01-30 18:21 | ED_ITS ---
<Statement entered by Carroll Alejandro MD - 01/30/25 23:18> I was consulted by the JODY, and we discussed the complexity of the problems being addressed. I approved the treatment and management plan for this patient's care in the emergency department, thus performing a substantive portion of the medical decision making. Carroll Alejandro MD, JOEY, FACEP Discharge Plan Disposition Patient Disposition: Home, Self-Care Prescriptions Prescriptions: No Action sennosides-docusate sodium 1 EACH tablet 1 each PO DAILY lisinopril 20 MG tablet 20 mg PO DAILY baclofen 20 MG tablet 20 mg PO TID tamsulosin 0.4 MG capsule 0.8 mg PO HS levothyroxine 200 MCG tablet 125 mcg PO DAILY omeprazole 20 MG tablet,delayed release (DR/EC) 20 mg PO DAILY Referrals Follow up/Referrals: Rusty Romano II, MD [Staff Physician, Gastroenterology] - See instructions Provider,Anuj, [Referring, Medical] - See instructions Gregorio Ware MD [Primary Care Provider, Internal Medicine] - See instructions Clinical Impressions Clinical Impression: Chest pain, Atypical chest pain, Cholelithiasis Instructions Patient Instructions: Gallstones Print Language Print Language: French Discharge ED Provider: Carroll Alejandro HPI General Chief Complaint: Chest Pain Stated Complaint: cp Time Seen by Provider: 01/30/25 18:18 History of Present Illness HPI narrative: This is a 74-year-old male who presents to the ED today with 20 minutes of chest pain, no shortness of breath, no recent illness. Patient had just eaten dinner prior to the chest pressure starting. Patient admits to taking blood pressure medication. He did take his blood pressure and says it was really high. Patient does not take any blood thinners. Patient has previously had low blood pressure and had to take half of his normally prescribed blood pressure medication. Patient does have chronic back pain and has a fentanyl pump. Denies any other health history including no heart or lung history. Related Data Home Medications ?Medication ?Instructions ?Recorded ?Confirmed baclofen 20 mg tablet 20 mg PO TID muscle relaxer 12/02/17 01/26/22 levothyroxine 200 mcg tablet 125 mcg PO DAILY thyroid 12/02/17 01/26/22 lisinopril 20 mg tablet 20 mg PO DAILY bp 12/02/17 0 01/26/22 omeprazole 20 mg tablet,delayed 20 mg PO DAILY acid re flux 12/02/17 01/26/22 release tamsulosin 0.4 mg capsule 0.8 mg PO HS prostate 01/26/22 sennosides 8.6 mg-docusate sodium 1 each PO DAILY . 01/26/22 50 mg tablet Allergies Allergy/AdvReac Type Severity Reaction Status Date / Time morphine Allergy Intermediate I-ITCHING Verified 10/02/21 13:08 duloxetine (From Cymbalta) AdvReac Verified 10/02/21 13:08 gabapentin AdvReac Verified 10/02/21 13:08 pregabalin (From Lyrica) AdvReac Verified 10/02/21 13:08 PFSH [facility] Disclaimer: The information contained in this section may have been updated after the patient was seen, as this information can be updated by other users. Social History Smoking Status: Current every day smoker tobacco type: cigarettes packs per day: 1 second hand exposure: Yes alcohol intake: never substance use type: denies use current occupational status: other Travel in the last 8 weeks?: None household members: other housing: house current occupational exposures/hazards: No caffeine: Yes Have you lived/traveled outside [place] in past 30 days?: No Contact w/someone who lives/traveled outside [place] past 30 days?: No Exposure to someone with infectious disease in past 14 days?: No Do you have a fever (greater than 100.4 F or 38 C)?: No Have you tested positive for COVID-19?: No Exposed to someone with COVID-19 in past 14 days?: No Do you have a sore throat?: No Do you have a cough?: No Do you have any weakness?: No Do you have any diarrhea?: No Are you experiencing any unusual bleeding?: No Do you have any muscle aches/pain?: No Do you have any abdominal pain?: No Are you experiencing loss of taste or smell?: No Other Medical History Have you received the Flu Vaccine for this season: Yes Have you received the Pneumonia Vaccine: No ROS Obtained: Yes Systems reviewed as appropriate & no additional complaints except as documented Constitutional Constitutional: Reports as per HPI Physical Exam General General appearance: alert Head Head exam: normocephalic Eye Eye exam: Present normal appearance and PERRL ENT ENT exam: Present mucous membranes moist Neck Neck exam: Present trachea midline Chest Chest inspection: Present symmetric chest wall rise Respiratory Respiratory exam: Present normal lung sounds bilaterally Cardiovascular Cardiovascular exam: Present regular rate, normal rhythm, normal heart sounds, +S1 and +S2 Abdominal Exam Abdominal exam: Present soft and normal bowel sounds Extremities Exam Extremities exam: Present normal inspection, full ROM and normal capillary refill Back Exam Back exam: Present normal inspection and full ROM Neurological Exam Neurological exam: Present alert, oriented X3 and normal gait Psychiatric Psychiatric exam: Present normal affect and normal mood Skin Skin exam: Present warm and dry HEART Score HEART Score HEART Score assessment performed?: Yes History (anamnesis): Slightly suspicious ECG: Normal Age: >65 years Risk factors: 1-2 risk factors Troponin: </= normal limit HEART Score: 3 Critical Care Critical Care Time Critical Care Time: No Medical Decision Making Olivier Inquiry Pt receiving controlled substance: No Olivier was queried for this patient: No Vital Signs Vital Signs: 01/30/25 18:18 01/30/25 18:30 01/30/25 19:00 Temperature 98.1 F Temperature Source Oral Pulse Rate 87 88 Pulse Rate [Right Radial] 93 H Respiratory Rate 15 17 20 Blood Pressure 145/69 H 123/65 Blood Pressure [Right Arm] 155/78 H Blood Pressure Mean 101 Blood Pressure Mean [Right Arm] 103 Blood Pressure Source [Right Arm] Automatic Cuff Blood Pressure Position [Right Arm] Supine 02 Sat by Pulse Oximetry 100 98 97 Oxygen Delivery Method Room Air Room Air 01/30/25 19:52 01/30/25 20:17 01/30/25 20:32 Temperature Temperature Source Pulse Rate 79 80 79 Pulse Rate [Right Radial] Respiratory Rate 17 18 17 Blood Pressure 126/70 139/66 124/60 Blood Pressure [Right Arm] Blood Pressure Mean Blood Pressure Mean [Right Arm] Blood Pressure Source [Right Arm] Blood Pressure Position [Right Arm] 02 Sat by Pulse Oximetry 99 97 95 Oxygen Delivery Method Lab Data Labs: Lab Results 01/30/25 18:23: WBC 5.2, RBC 4.28 L, Hgb 14.3, Hct 40.8 L, MCV 95.3 H, MCH 33.4 H, MCHC 35.0, RDW 12.1, Plt Count 182, MPV 9.8, Neut % (Auto) 54.9, Lymph % (Auto) 34.0, [place] % (Auto) 7.8, Eos % (Auto) 1.9, Baso % (Auto) 1.0, Neut # (Auto) 2.9, Lymph # (Auto) 1.8, [place] # (Auto) 0.4, Eos # (Auto) 0.1, Baso # (Auto) 0.1, PT 10.7, INR 0.96, Sodium 139, Potassium 3.8, Chloride 100, Carbon Dioxide 31 H, Anion Gap 11.8, BUN 7 L, Creatinine 1.50 H, Estimated Creat Clear 56, Estimated GFR 46 L, Est GFR ( Amer) 55 L, Glucose 125 H, Calcium 9.0, Magnesium 2.1, Total Bilirubin 0.5, AST 24, ALT 15, Alkaline Phosphatase 40, Troponin I < 0.01, Total Protein 8.7 H, Albumin 5.0, Globulin 3.7 H, Albumin/Globulin Ratio 1.4, Lipase 332 H, HCV Ab DEEPIKA w/Rflx PCR Qn Negative, HIV Ag/Ab Combo Qual Negative 01/30/25 21:07: Troponin I < 0.01 01/30/25 18:23 01/30/25 18:23 Response Orders (Tests/Meds): ED MEDICATIONS Generic Name Dose Route Start Last Admin Trade Name Freq PRN Reason Stop Dose Admin Hydromorphone HCl 0.5 mg 01/30/25 20:11 01/30/25 20:13 Hydromorphone 2mg/Ml Syringe IV 03/01/25 20:10 0.5 mg Q2HP PRN Administration Severe Pain (7-10) Nitroglycerin 0.4 mg 01/30/25 18:18 01/30/25 18:45 Nitroglycerin 0.4mg Sl Tablet SL 01/31/25 18:19 0.4 mg Q5MINP PRN Administration Chest Pain Sodium Chloride 8 ml 01/30/25 18:18 Sodium Chloride 0.9% 10ml Vial IV 03/01/25 18:17 NEEDED PRN dilute pepcid Discontinued Medications Generic Name Dose Route Start Last Admin Trade Name Freq PRN Reason Stop Dose Admin Aspirin 324 mg 01/30/25 18:18 01/30/25 18:29 Aspirin 81mg Chewable Tablet PO 01/30/25 18:19 324 mg ONCE ONE Administration Belladonna Alkaloids 60 ml 01/30/25 20:18 01/30/25 20:42 Belladonna Alkaloids 60 Ml Ml PO 01/30/25 20:19 60 ml ONCE ONE Administration Famotidine 20 mg 01/30/25 18:18 01/30/25 18:29 Famotidine 20mg/2ml Vial IV 01/30/25 18:19 20 mg ONCE ONE Administration Hydromorphone HCl 0.5 mg 01/30/25 18:41 01/30/25 19:11 Hydromorphone 2mg/Ml Syringe IV 01/30/25 18:42 Not Given ONCE ONE Iopamidol 75 ml 01/30/25 19:34 01/30/25 19:34 Iopamidol-370 (76%);100ml Bottle IV 01/30/25 19:35 75 ml ONCE ONE Administration Ondansetron HCl 4 mg 01/30/25 18:41 01/30/25 18:53 Ondansetron 4mg/2ml Vial IV 01/30/25 18:42 4 mg ONCE ONE Administration Sodium Chloride 10 ml 01/30/25 19:34 01/30/25 19:34 Sodium Chloride 0.9% 10ml Syr (Rad Only) IV 01/30/25 19:35 10 ml ONCE ONE Administration ORDERS Category Date Time Status CT abdomen pelvis w con Stat Cat Scan 01/30/25 19:05 Completed Chest XR -- portable [XR chest portable] Stat Exams 01/30/25 18:19 Completed CBC [Complete Blood Count Auto Diff] Stat Lab 01/30/25 18:23 Completed Comprehensive Metabolic Panel Stat Lab 01/30/25 18:23 Completed HIV Combo Stat Lab 01/30/25 18:23 Completed Hepatitis C Ab Qual. W/ RFX Stat Lab 01/30/25 18:23 Completed Lipase Stat Lab 01/30/25 18:23 Completed Magnesium Stat Lab 01/30/25 18:23 Completed PT INR [Prothrombin Time INR] Stat Lab 01/30/25 18:23 Completed Trop I [Troponin I] Stat Lab 01/30/25 18:23 Completed Troponin I Q3H Lab 01/30/25 21:07 Completed Troponin I Q3H Lab 01/31/25 00:30 Ordered MDM Narrative Medical Decision Narrative: patient is a 74-year-old male presenting to the emergency department for evaluation of chest pain that started 20 minutes prior to arrival. No shortness of breath no other symptoms.. Patient is hemodynamically stable and nontoxic- appearing upon arrival, afebrile. Differential diagnosis includes CAD, MA, NSTEMI, reflux among other etiologies. Workup will be conducted with hematologic labs, specific imaging, provocative tests. Initial inventions include analgesics, nitro. Patient had to be given Dilaudid for pain control while here in the ED. Patient much improved with the pain medication. Initial workup reviewed by me hematologic labs are remarkable for nothing acute. Patient did have an elevated lipase but nondiagnostic for pancreatitis. Imaging informally interpreted by me and remarkable for cholelithiasis. Formal imaging read remarkable for cholelithiasis. Patient aware and wants to follow- up with Dr. Romano. He also has an appointment with his PCP on Saturday. He is ready to go and walking the hallways asking to go home. Patient does feel better. Upon repeat evaluation patient's pain is improved.
--- OUTSIDE RECORDS SUMMARY | 2025-01-30 18:21 | XMS_ITS | Patient Health Record ---
Author Organization [facility] Address [address] [place] [address] [place] [address] Care Team Providers Care Service Plumber Name Role Phone Gregorio Ware Primary Care Provider Migration, Provider Unavailable Unavailable Allergies Allergen (clinical drug ingredient) Drug/Non Drug Allergy documented on EMR Reaction Allergy Type Onset Date Status duloxetine Cymbalta confusion Drug Allergy Active pregabalin Lyrica confusion Drug Allergy Active gemfibrozil Lopid increase in live r enzymes Drug Allergy Active gabapentin Neurontin Unknown Drug Allergy Active Results Component Value Reference Range Notes CT Scan : Chest, Lung Cancer Screening Reviewed date:11/11/2024 12:41:24 PM Interpretation: Performing Lab: Notes/Report: Reason For Referral Reason Needs low-dose CT sc an Diagnosis 1 Tobacco dependence ( F17.200) Referral Organization [facility] DORA [facility]ARSON Referring Provider First Name Gregorio Referring Provider Last Name Chaz Referring Provider Speciality Internal M edicine Referred Organization [facility] Referred Address [address] [place], [place],[address], Referred Provider Specialty Diagnostic R adiology General Notes Jennifer Ferrer 2024 11:28:53 AM >sent to [facility] to schedule Referral Priority Routine Referral Appointment Date 11/05/2024 Medications Medication SIG (Take, Route, Frequency, Duration) Notes Start Date End Date Status MOMETASONE FUROATE TOPICAL 0.1% 1 JODY APPLIED TOPICALLY ONCE A DAY for 7 DAYS *Please review for potential replacement for e-prescription and drug interaction check* 10/19/2024 Active Omeprazole 20 MG 1 cap(s) orally once a day for 90 days 10/19/2024 Active Lisinopril 20 MG 1/2 tab(s) orally once a day for 90 days Active Tamsulosin HCl 0.4 MG 2 capsules orally once a day for 90 days Active Euthyrox 125 MCG 1 tablet in the morning on an empty stomach Orally Once a day for 90 days Active fentaNYL pain pump *Pleas e review and pick correct strength-formulation from [employer] options. If intended option is not shown, discontinue and re-order from Quick Search* Active Baclofen 20 MG 1 tab(s) orally 3 times a day for 90 Active Omeprazole 20 MG 1 cap(s) orally once a day prn for 90 Active Immunizations Vaccine Route Administration Date Status Comme nts Prevnar PCV-13 (Pneumococcal conjugate 13) IM Intramuscular 08/06/2016 Administered Pneumovax 23 IM Intramuscular 03/31/2018 Administered Influenza (Fluzone)--Medicare only IM Intramuscular 07/29/2015 Administered Influenza (Fluzone)--Medicare only IM Intramuscular 05/07/2016 Administered Influenza (Fluzone)--Medicare only IM Intramuscular 05/06/2017 Administered Fluzone High Dose IM Intramuscular 07/03/2019 Administered Fluzone High Dose IM Intramuscular 07/06/2020 Administered Fluzone High Dose IM Intramuscular 05/08/2021 Administered Fluzone High Dose IM Intramuscular 05/14/2022 Administered Fluzone High Dose IM Intramuscular 05/13/2023 Administered Fluzone High Dose IM Intramuscular 06/15/2024 Administered Fluvirin--Influenza vaccine 3+ year IM Intramuscular 05/21/2014 Administered Covid Moderna Unknown 09/29/2020 Administered Covid Moderna Unknown 10/27/2020 Administered Social History Tobacco Use: Social History Observation Description Date Details (start date - stop date) Current Smoker NA - NA Smoking: Question Answer Notes Are you a: current smoker How often do you smoke cigarettes? every day How many cigarettes a day do you smoke? 31 or mo re Are you interested in quitting? Ready to quit Section Notes: - has cut back daily cigaret te use from 2 packs per day to 1 pack per day. - has cut back daily cigaret te use from 2 packs per day to 1 pack per day. Problems Problem Type SNOMED Code ICD Code Onset Dates Problem Status W/U Status Risk Notes Problem 59629863 Generalized anxiety disorder (F41.1) Active confirmed Problem 744227139 Chronic pain syndrome (G89.4) Active confirmed Problem 48107215 Diplopia (H53.2) Active confirmed Problem 705828648 Lumbago with sciatica, left side (M54.42) Active confirmed Problem 60983907 Personal history of nicotine dependence (Z87.891) Active confirmed Problem 82879146 Essential hypertension (I10) Active confirmed Problem 821354916 Hyperlipemia, idiopathic familial (E78.5) Active confirmed Problem 890979097 GERD without esophagitis (K21.9) Active confirmed Problem 085276973 Tubular adenoma of colon (D12.6) Active confirmed Problem 82327904 Idiopathic peripheral neuropathy (G60.9) Active confirmed Problem 557875470 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) Active confirmed Problem 472181689 Acquired hypothyroidism (E03.9) Active confirmed Problem 38685374 Dysthymia (F34.1) Active confirmed Problem 524186037 Pulmonary nodule (R91.1) Active confirmed Problem 67422580 Lumbar spinal stenosis (M48.06) Active confirmed Problem 721283452 Benign prostatic hyperplasia with lower urinary tract symptoms, unspecified morphology (N40.1) Active confirmed Problem 35047766 Tobacco dependen ce (F17.200) Active confirmed Problem 530867440 Healthcare maintenance (Z00.00) Active confirmed Problem 622677621779462 Drug induced constipation (K59.03) Active confirmed Vital Signs Heart Rate 96 /min 10/19/2024 Temperature 97.3 degrees Fahrenheit 10/19/2024 Blood pressure diastolic 68 mm Hg 10/19/2024 Height 74 in 10/19/2024 Blood pressure systolic 142 mm Hg 10/19/2024 Weight 197 lbs 10/19/2024 BMI 25.29 kg/m2 10/19/2024 Encounters Encounter Location Date Provider Diagnosis [facility] [address] [place] [address] 11/28/2024 Provider Migration Essential hypertension I10 and GERD without esophagitis K21.9 [facility] [address] [place], [place] [address] 03/16/2024 Grgeorio Ware Personal history of nicotine dependence Z87.891 ; Essential hypertension I10 and Acquired hypothyroidism E03.9 [facility] [address] [place] [address] 06/15/2024 Gregorio Ware Essential hypertensi on I10 ; Acquired hypothyroidism E03.9 ; Idiopathic peripheral neuropathy G60.9 ; Immunization(s) administered Z23 ; Personal history of nicotine dependence Z87.891 ; Pulmonary nodule R91.1 and Medicare annual wellness visit, subsequent Z00.00 [facility] [address] [place] [address] 10/19/2024 Gregorio Ware Chronic pain syndrom e G89.4 ; Benign prostatic hyperplasia with lower urinary tract symptoms, unspecified morphology N40.1 ; Essential hypertension I10 ; Tobacco dependence F17.200 ; GERD without esophagitis K21.9 and Healthcare maintenance Z00.00 [facility] [address] [address] 07/20/2024 Gregorio Choison [facility] [address] [place] [address] 09/02/2024 Gregorio Besson [facility] [address] [place] [address] 10/02/2024 Gregorio Besson [facility] [address] [place] [address] 10/19/2024 Gregorio Ware History of nicotine dependence Z87.891 Assessments Encounter Date Diagnosis (ICD Code) Assessment Notes Treatment Notes Treatment Clinical Notes Section Notes 10/19/2024 History of nicotine dependence (ICD-10 - Z87.891) 10/19/2024 Chronic pain syndrome (ICD-10 - G89.4) Stable, follows with pain management and has pain pump. 10/19/2024 Benign prostatic hyperplasia with lower urinary tract symptoms, unspecified morphology (ICD-10 - N40.1) stable, doing well with tamsulosin, no complaints. Continue current management. 06/15/2024 Essential hypertension (ICD-10 - I10) BP well-controlled in office today on lisinopril 10mg daily. He has some orthostatic symptoms but thinks it is more related to his neuropathy. Will continue lisinopril for now, but if symptoms persist or he develops falls, will plan to reduce lisinopril. UTD on labs. 03/16/2024 Personal history of nicotine dependence (ICD-10 - Z87.891) - continues to smoke 2 PPD, not interested in tobacco cessation - Last LDCT in 2021, not interested in further lung cancer screening - educated pt on the importance of cutting down however was not interested in discussing it any further. Denies wheezing but reports occasional dyspnea. 03/16/2024 Essential hypertension (ICD-10 - I10) - Stable, measures it at home w/ average SBP in 120-130. denies any symptoms - continue with current therapy - will obtain labs at next visit. 06/15/2024 Acquired hypothyroidism (ICD-10 - E03.9) UTD on thyroid panel. No change in plans. No worrisome symptoms. 03/16/2024 Acquired hypothyroidism (ICD-10 - E03.9) - continue with synthroid. 06/15/2024 Idiopathic peripheral neuropathy (ICD-10 - G60.9) Intolerant to PO medications. Has fentanyl pain pump. Recently reduced dose which has resulted in worsening symptoms. Plans to increase dose at next visit. 10/19/2024 Essential hypertension (ICD-10 - I10) BP slightly elevated in clinic today but has been normotensive with systolics in the 120's at home. Continue lisinopril 10 mg daily. 11/28/2024 Essential hypertension (ICD-10 - I10) 06/15/2024 Immunization(s) administered (ICD-10 - Z23) 10/19/2024 Tobacco dependence (ICD-10 - F17.200) 2-3 ppd, no interest in cessation. Low dose CT due and ordered today. 06/15/2024 Personal history of nicotine dependence (ICD-10 - Z87.891) Smokes 2-3ppd, not interested in cessation. Declines LDCT screening. Counseled on tobacco cessation for 5 minutes. Discussed the health consequences and risks of continued smoking as well as the health and social benefits of quitting. Patient not interested at this time 11/28/2024 GERD without esophagitis (ICD-10 - K21.9) 10/19/2024 GERD without esophagitis (ICD-10 - K21.9) Worsening gerd symptoms recently, no dysphagia, no red flag symptoms. Done well with omeprazole in the past. Will start trial of omeprazole and follow up on symptoms at next visit. 10/19/2024 Healthcare maintenance (ICD-10 - Z00.00) Low dose CT due and ordered today. 06/15/2024 Pulmonary nodule (ICD-10 - R91.1) Stable on CT chest in 2021. Declines further screening. No productive cough, hemoptysis, weight loss. 06/15/2024 Medicare annual wellness visit, subsequent (ICD-10 - Z00.00) Declined to fill out HRA. He is not worried about functional mobility although he uses a cane to walk. Independent for ADLs. No concerns about mood or memory. Declines LDCT. Received flu vaccine today. Will discuss other vaccinations including PCV20 at next visit if patient is amenable. Plan Of Treatment Pending Test Test Name Order Date Ultrasound : Carotids 06/11/2016 Echocardiogram 06/14/2016 Physical Therapy 11/11/2015 MRI : Lumbar Spine with Contrast 021 H-CMP 10/21/2013 H-LIPID PANEL 10/21/2013 H-TSH 10/21/2013 C-BUN 10/13/2020 C-CREATININE 10/13/2020 C-CBC 06/30/2018 C-CMP 06/30/2018 C-LIPID PANEL 06/30/2018 C-VITAMIN B12 01/04/2020 C-DRUG SCREEN 10 PANEL 05/07/2016 CT Scan : Chest, Lung Cancer Screening 0 05/08/2021 Future Test Test Name Order Date C-CBC 01/25/2015 C-CMP 01/25/2015 C-LIPID PANEL 01/25/2015 C-TSH 01/25/2015 C-DRUG SCREEN 12 PANEL 05/07/2017 C-DRUG SCREEN 10 PANEL 07/06/2019 Next Appt Details Provider Name:Gregorio Ware, 02/01/2025 09:15:00 AM, [address], [place], [address], Insurance Providers Payer Name Payer Address Payer Phone Subscriber Number Group Number Insured Name Patient Relationship to Insured Coverage Start Date Coverage End Date [place] [address] [place] [address] [id number] Naun Dave Self - patient is the insured [employer] Medicare Supplement [address] [address] [place], [place] [phone] [id number] Naun Dave Self - patient is the insured [employer] [address] [place] [address] ACL Naun Dave Self - patient is the insured Medications Administered Medication Instructions Date of Administration Dosage Notes Ceftriaxone 500 12/14/2013 500 mg Medical (General) History Medical History History ICD Code Chronic back pain and neurop athy s/p 3 surgeries - most recent with Dr. Razo in 2010 hypothyroidism GERD Anxiety HTN Hyperlipidemia colonoscopy April 2016 w ith multiple tubular adenomas, repeat 05/13 with 3 tubular adenomas LDCT scan 10/15 - 6 month f/u recommended - CT in 04/14 with stable nodules - again stable in 01/14 and Birads 1 in 11/17 Appropriate UDS 06/2020 Covid 19-04/2022 Pain Pump w fentanyl Surgical History Surgery Date(Month/Year) back surgery x 3 repair tendon-lt hand 05/2018 Pain pump insertion 11/2020 Hospitalization History Reason Date(Month/Year) back surgery chest pains
--- OUTSIDE RECORDS SUMMARY | 2025-01-30 18:21 | XMS_ITS | Continuity of Care Document ---
Author Organization [facility] Address [address] [place] [address] Assessment Encounter Date Assessment Date Assessment LastModified by Organization Details LastModified Time 12/25/2024 12/25/2024 Patient has established care for management of his pain pump implanted by Dr. Arizmendi. Patient was on Dilaudid and had a reaction to the medication which resulted in a medication change to Fentanyl. The patient has history of increased sensitivity to neuropathic medications such as Gabapentin, Cymbalta, and Lyrica. The patient had ITTP pump replacement changed from Flowonix to Medtronic on 12/22/[address] Olivares with no changes to medication. Of note, the patient reports that he is extremely sensitive to medications and has had significant side effects to oral medications in the past to treat his neuropathic pain such as Gabapentin, Lyrica, and Cymbalta. I will be recognizant of the patient's medication sensitivity and will make slow increases to the pain pump in efforts to help better manage the patient's pain. - withdrawal symptoms after post op, changed ITTP pump from Flowonix to Medtronic. [email or web address] Not available 12/25/2024 09:36:22 Plan of Treatment Reminders Order Date Submit Date Provider Last Modified By Organization Details Last Modified Time Details Appointments None record ed. Lab None record ed. Referral None record ed. Procedures None record ed. Surgeries None record ed. Imaging None record ed. Medication Orders None record ed. Patient TargetsNo targets recorded. Patient Instructions Encounter Date Encounter Id Patient Instructions Last Modified By Organization Details Last Modified Time 12/25/2024 [id number] I have discussed in great detail our potential treatment options which would include a rehabilitative approach to care. This program would include medication management, Physical Therapy, consideration for interventional procedures as appropriate, and lifestyle modification (diet, weight loss, exercise, smoking/tobacco cessation, holistic approach including meditation and yoga). The patient understands and agrees prior to proceeding with this plan. _ __ __ __ __ __ __ __ __ __ __ __ __ __ __ __ __ __ __ __ __ __ __ __ __ __ __ __ _ RECORDS REVIEW: As per clinic policy, we will have the patient sign a release to obtain previous imaging and clinical notes. - PROCEDURE: I counseled the patient extensively and informed of the respective risks/benefits of the procedure(s). The pertinent risks/benefits will be elaborated on and fully outlined in the informed consent. _ __ __ __ __ __ __ __ __ __ __ __ __ __ __ __ __ __ __ __ __ __ __ __ __ __ __ __ _ PSYCH: Pain affecting Neuro-psych behavior was discussed. Discussed about pain psychological counseling as a part of the multimodal approach to pain treatment. _ __ __ __ __ __ __ __ __ __ __ __ __ __ __ __ __ __ __ __ __ __ __ __ __ __ __ __ _ REHABILITATION: Discussed with the patient the importance of diet, daily physical activity and PT. Discussed with the patient the need to be scheduled for physical therapy since physical therapy will prolong the benefits of the procedure and interventions. _ __ __ __ __ __ __ __ __ __ __ __ __ __ __ __ __ __ __ __ __ __ __ __ __ __ __ __ _ FRANCHESCA: I have reviewed patient's FRANCHESCA report prior to prescribing Schedule II, III, and IV medications that require review by law. [email or web address] Not available 12/25/2024 09:08:18 Reason for Referral None Reported. Problems Name Problem SNOMED Code Status Onset Date Resolution Date Notes Provider Name and Address Organization Details Recorded Time Post-laminec jacki syndrome 58421392 Active 022 Katiana Wallkins null, [place] - [facility] [place] & [place] 2 16:21:50 Radicular pain 71052140 Active 022 Katiana Orellana null, [place] [facility] [place] 2 16:22:17 Pain in lower limb 40533952 Active 022 Katiana Orellana null, [place] [facility] [place] 2 16:22:33 Myofascial pain 803590871 Active 022 Katiana [place], [place] [facility] [place] 2 16:22:51 Nicotine dependence 01723662 Active 022 Katiana O[place]ana null, [place] - [facility] [place] 2 16:23:23 Spinal stenosis of lumbar region 90262037 Active 023 Katiana Orellana null, [place] - [facility] [place] 3 15:16:21 Problem Notes None recorded. Procedures Surgical History Date Name Laterality Status Provider Name and Address Organization Details Recorded Time 5 PUMP CHANGES completed Herlinda Diaz [place] [facility] [place] 12/25/2024 10:16:12 5 Intrathecal Drug (ITD) Pump Refill completed Tracy Pierre [place] - [facility] [place] 10/05/2024 13:14:26 5 PUMP CHANGES completed Katianahaley Orellana [place] [facility] [place] 10/05/2024 11:59:21 4 Intrathecal Drug (ITD) Pump Refill completed Tracy CONTRER[place] - [facility] - [place] 07/06/2024 11:31:21 4 PUMP CHANGES completed Katiana CONTRERAS - [facility] - [place] 07/06/2024 15:34:45 4 Intrathecal Drug (ITD) Pump Refill completed Tracy CONTRERAS - [facility] - [place] 04/07/2024 15:20:34 4 PUMP CHANGES completed Tracy CONTRERAS - [facility] - [place] [facility] [place] 04/07/2024 15:21:50 4 Intrathecal Drug (ITD) Pump Refill completed Katiana CONTRERAS - [facility] - [place] [facility] [place] 01/16/2024 17:05:23 4 PUMP CHANGES completed Katiana CONTRERAS - [facility] - [place] 01/16/2024 17:06:18 4 Intrathecal Drug (ITD) Pump Refill completed Tracy CONTRERAS - [facility] - [place] [facility] [place] 10/24/2023 10:38:22 4 PUMP CHANGES completed Carmen CONTRERAS - [facility] - [place] 10/24/2023 10:24:27 3 Intrathecal Drug (ITD) Pump Refill completed Tracy CONTRERAS - [facility] - [place] 07/25/2023 10:48:04 3 PUMP CHANGES completed Tracy CONTRERAS - [facility] - [place] 07/25/2023 10:48:16 3 Intrathecal Drug (ITD) Pump Refill completed Katiana CONTRERAS - [facility] - [place] 05/02/2023 12:12:50 3 PUMP CHANGES completed Katiana CONTRERAS - [facility] - [place] 05/02/2023 12:13:20 3 Intrathecal Drug (ITD) Pump Refill completed Katiana CONTRERAS - [facility] - [place] 2023 17:12:00 3 PUMP CHANGES completed Katiana CONTRERAS - [facility] - [place] & [place] 2023 17:13:34 3 Intrathecal Drug (ITD) Pump Refill completed Preethi CONTRERAS - [facility] - [place] & [place] 11/06/2022 16:29:19 3 PUMP CHANGES completed Preethi CONTRERAS - [facility] - [place] & [place] 11/06/2022 16:32:31 2 Intrathecal Drug (ITD) Pump Refill completed Katiana CONTRERAS - [facility] - [place] & [place] 07/23/2022 16:28:25 2 PUMP CHANGES completed Katiana CONTRERAS - [facility] - [place] & [place] 07/23/2022 16:31:34 Imaging Results None recorded. Procedure Notes None recorded. Medical Equipment None Reported. Allergies No known drug allergies Medications Name Sig Start Date Stop Date Status Note LastModified by Organization Details LastModified Time eq senna-s 8.6-50mg tab TAKE 1 TABLET BY MOUTH ONCE DAILY 10/05 completed Not Available Not Available Not Available doxycycline hyclate 100 mg capsule active Not Available Not Available N ot Available clonidine 0.1 mg/24 hr weekly transdermal patch APPLY 1 PATCH TOPICALLY ONCE A WEEK active Not Available Not Available No t Available hydrocodone 5 mg-acetamin ophen 325 mg tablet TAKE 1 TABLET BY MOUTH EVERY 6 HOURS active Not Available Not Available No t Available lisinopril 20 mg tablet TAKE 1/2 (ONE-HALF ) TABLET BY MOUTH ONCE DAILY active Not Available Not Available No t Available baclofen 20 mg tablet TAKE 1 TABLET BY MOUTH THREE TIMES DAILY active Not Available Not Available No t Available tamsulosin 0.4 mg capsule TAKE 2 CAPSULES BY MOUTH ONCE DAILY active Not Available Not Available No t Available cephalexin 500 mg capsule TAKE 1 CAPSULE BY MOUTH EVERY 8 HOURS FOR 7 DAYS active Not Available Not Available No t Available oseltamivir 75 mg capsule TAKE 1 CAPSULE BY MOUTH TWICE DAILY FOR 5 DAYS 10/05 completed Not Available Not Available Not Available levothyroxi ne 125 mcg tablet TAKE 1 TABLET BY MOUTH ONCE DAILY active Not Available Not Available No t Available omeprazole 20 mg capsule,del ayed release TAKE 1 CAPSULE BY MOUTH ONCE DAILY active Not Available Not Available No t Available mupirocin 2 % topical ointment APPLY A SMALL AMOUNT TOPICALLY WITH A Q-TIP TO JUST INSIDE EACH NOSTRIL, MORNING AND EVENING FOR 5 DAYS PRIOR TO PROCEDURE 2024 active Not Available Not Available Not Avai lable mometasone 0.1 % topical cream active Not Available Not Available Not Available diazepam 5 mg tablet TAKE 1 TABLET BY MOUTH TWICE DAILY 10/05 completed Not Available Not Available Not Available Ventolin HFA 90 mcg/actuati on aerosol inhaler INHALE 2 PUFFS BY MOUTH EVERY 6 HOURS NEEDED 10/05 completed Not Available Not Available Not Available naloxone 4 mg/actuatio n nasal spray ADMINISTE R A SINGLE SPRAY IN ONE NOSTRIL UPON SIGNS OF OPIOID OVERDOSE. CALL 911. REPEAT AFTER 3 MINUTES IF NO RESPONSE. USE DIRECTED NEEDED 10/05 completed Not Available Not Available Not Available Procto-Med HC 2.5 % topical cream perineal applicator APPLY CREAM RECTALLY TWICE DAILY FOR 7 DAYS 10/05 completed Not Available Not Available Not Available BinaxNOW COVID-19 Ag Self Test kit Use as Directed on the Package 10/05 completed Not Available Not Available Not Available fentanyl (PF) 250 mcg/5 mL (50 mcg/mL) in 0.9 % NaCl IV syringe continuou s intrathec al dose 2024 active Not Available Not Available Not Avai lable Lagevrio 200 mg capsule (EUA) TAKE 4 CAPSULES BY MOUTH EVERY 12 HOURS 10/05 completed Not Available Not Available Not Available Vitals Date Recorded Body weight Body temperature Oxygen saturation Oxygen saturation in Arterial blood by Pulse oximetry Heart rate Systolic blood pressure Diastolic blood pressure Provider Name and Address Organization Details Last Updated DateTime 5 48706.2 5 g 97.8 [degF] 96 % 96 % 93 /min 140 mm[Hg] 86 mm[Hg] [facility] & [place] 5 08:59:34 Social History None recorded. Functional Status None recorded. Mental Status None recorded. Family History Nothing Reported. Medical History No medical history recorded. Past Encounters Encounter ID Performer Location Encounter Start Date Encounter Closed Date Diagnosis/Indication Diagnosis SNOMED-CT Code Diagnosis ICD10 Code Diagnosis Note [id number] Geoffrey Olivares MD [facility] [address] [place] [address] 12/25/2024 07:47:36 12/25/2024 08:28:32 Post-laminectomy syndrome 85864505 M96.1 - The patient is post op ITTP pump replacemen t from [employer] [facility] [employer] (12/22/24). - The nurse called the patient for routine post op surgery follow up yesterday when the patient reported having withdrawal symptoms including nausea, irritabili ty, and feeling jittery. Hydrocodon e/APAP tablets and clonidine patches were prescribed to help with withdrawal s and the patient was instructed to go to the ER if necessary and was scheduled for office visit today.- The hydrocodon e/APAP tablets were helpful in decreasing symptoms, but the patient did not use the clonidine patches for fear of blood pressure dropping.- Today, a bolus of 10 mcg fentanyl was administer ed by the pain pump and the patient was monitored for effects.- The patient reported the bolus was not effective, but he did not want to change the pump settings at this time. The patient again was instructed to go to the ER if withdrawal symptoms worsen.- The patient will follow up at his 1 week post op appointmen t Saturday to reassess withdrawal s and pump settings. Spinal mitzy nosis of lumbar region 20207406 M99.53 M48.061 Pain in lower limb 04971 006 M79.606 Health Concerns Section Related Observation LastModified by Organization Detai ls LastModified Time None Recorded Concern Status LastModified by Organization Details LastModified Time None Recorded Payers Encounter Date Sequence Insurance Name Policy Number Policy Starr Covered Member ID Starr Member ID Guarantor Name 12/25/2024 1 [place] Naun Dave [id number] Naun Dave 12/25/2024 2 [facility] (MEDICARE SUPPLEMENT) Naun Dave [id number] Naun Dave Notes Date Note Type Note Provider Name and Address Organization Details Recorded Time 5 text/html Mr. Dave was self referred for management of intrathecal pain pump. Patient reports an onset of pain being 20+ years ago. He has since then had lumbar discectomy x2 and lumbar fusion with no benefit for the pain. He was set up with [facility] in 10/2020 and has been managed with Dr. Arizmendi. He was on intrathecal Dilaudid and was having a reaction to the medication. When reporting to Dr. Arizmendi's office, they did not believe him at first and they waited to change medication. Once changing medication, they put him on a low dose Fentanyl and the patient went through withdrawal at that time. The patient has lost all trust in Dr. Arizmendi and his office for continuation of care. Patient takes Aspirin daily. Patient smokes 2 ppd. The patient has history of increased sensitivity to neuropathic medications such as Gabapentin, Cymbalta, and Lyrica. The patient had ITTP pump replacement changed from Flowonix to Medtronic on 12/22/[address] Olivares with no changes to medication. The patient presents to the clinic today for withdrawal symptoms post op for intrathecal pain pump replacement from Flowonix to Medtronic (12/22/24). The patient states he has been going through withdrawals including feeling jittery, irritable, and nauseous . The patient was called by the nurse for a post op follow up call 12/24/24, when the patient reported having withdrawal symptoms. At that time, hydrocodone/APAP and clonidine patch was sent to help alleviate symptoms. The patient states today that the oral hydrocodone/APAP was helpful in decreasing symptoms, but he was scared to use the clonidine patch for fear of blood pressure dropping. The patient thinks his symptoms are due to laying in the bad for 3 hours. The patient was offered an increase in his pump dose, which he declined and said he will just follow up at his appointment on Saturday to discuss possible changes. Pain is rated 7/10 today. Initial complaint: chronic low back painOnset: 20+ years agoContext: worsening over timeCharacter: sharp, aching, throbbing, numbness/tinglingLocatio n: low back, BLE, bilateral feetDuration: constant with fluctuationsInitial Intensity: 7/10Worse: standing, walking, bending, activityBetter: restAssociated symptoms: Denies saddle anaesthesia, denies acute bowel/bladder changes, denies acute power lossADLs: The patient's pain interferes with daily chores, exercise, sleep, relationships, and walking.Current Pain Medications: intrathecal Fentanyl - mildly helpfulPrior Pain Medications: intrathecal Dilaudid, Hydromorphone - helpfulNSAIDS/OTC- not helpfulNon-interventiona l Tx: noneSurgery: discectomy x2 - 1994, 1994 (Dr. Bravo), lumbar fusion - 2000 (Dr. Razo), [facility] - 10/2020 (Dr. Arizmendi)Physical Therapy: several times - 2016 - not helpfulInterventional Tx: several spinal injection - 10 years ago - not helpfulImaging/Studies: non recent imaging Geoffrey Olivares MD [address] [facility], [place], [address], [facility] - [place] & [place] 12/25/2024 11:38:37
--- OUTSIDE RECORDS SUMMARY | 2025-01-30 18:22 | XMS_ITS | Data Portability ---
Author Organization DIANE - NT - April & DANIEL Alfaro ADMIN Address [address] [place] [id number] Assessment Encounter Date Assessment Date Assessment LastModified by Organization Details LastModified Time 04/07/2024 04/07/2024 Patient has established care for management of his pain pump implanted by Dr. Arizmendi. Patient was on Dilaudid and had a reaction to the medication which resulted in a medication change to Fentanyl. The patient presents to the clinic today for intrathecal pain pump refill. It appears that the current pump settings are managing the patient's pain and he is not in need of any adjustments today, but since his last pump increase, he has been experiencing jerking that is bothersome. In efforts to resolve his jerking, I will decrease his pump settings today. Pump refill was conducted as scheduled. Of note, the patient reports that he is extremely sensitive to medications and has had significant side effects to oral medications in the past to treat his neuropathic pain such as Gabapentin, Lyrica, and Cymbalta. I will be recognizant of the patient's medication sensitivity and will make slow increases to the pain pump in efforts to help better manage the patient's pain. - Pump refill today - Pump decrease today - Follow up for pump refill ----- I have discussed in great detail our [...] to obtain previous imaging and clinical notes. ------ PROCEDURE: I counseled the patient extensively and informed of the risks of the procedure, including the risk of paralysis, nerve damage, respiratory arrest, arrhythmias, stroke, weakness, and infection, which although very low, could result in or disability. The patient acknowledged to me that they understand and accept these risks. RN EDUCATION Extensive coordination of care provided by RN to educate patient on upcoming procedure and to coordinate obtaining extensive incoming medical records. _ __ __ __ __ __ __ [...] __ __ __ __ __ _ FRANCHESCA: [id number] I have reviewed patient's FRANCHESCA report prior to prescribing Schedule II, III, and IV medications that require review by law. [email or web address] Not available 04/09/2024 06:47:51 07/06/2024 07/06/2024 Patient has established care for management of his pain pump implanted by Dr. Arizmendi. Patient was on Dilaudid and had a reaction to the medication which resulted in a medication change to Fentanyl. Of note, the patient reports that he is extremely sensitive to medications and has had significant side effects to oral medications in the past to treat his neuropathic pain such as Gabapentin, Lyrica, and Cymbalta. I will be recognizant of the patient's medication sensitivity and will make slow increases to the pain pump in efforts to help better manage the patient's pain. [email or web address] Not available 07/06/2024 15:37:44 10/05/2024 10/05/2024 Patient has established care for management of his pain pump implanted by Dr. Arizmendi. Patient was on Dilaudid and had a reaction to the medication which resulted in a medication change to Fentanyl. Of note, the patient reports that he is extremely sensitive to medications and has had significant side effects to oral medications in the past to treat his neuropathic pain such as Gabapentin, Lyrica, and Cymbalta. I will be recognizant of the patient's medication sensitivity and will make slow increases to the pain pump in efforts to help better manage the patient's pain. [email or web address] Not available 10/05/2024 11:52:29 12/25/2024 12/25/2024 Patient has established care for [...] changed ITTP pump from [employer] to [employer]. [email or web address] Not available 12/25/2024 09:36:22 12/28/2024 12/28/2024 Patient has established care for management of his pain pump implanted by Dr. Arizmendi. Patient was on Dilaudid and had a reaction to the medication which resulted in a medication change to Fentanyl. Of note, the patient reports that he is extremely sensitive to medications and has had significant side effects to oral medications in the past to treat his neuropathic pain such as Gabapentin, Lyrica, and Cymbalta. I will be recognizant of the patient's medication sensitivity. Not available 12/30/2024 07:49:47 Plan of Treatment Reminders Order Date Submit Date Provider Last Modified By Organization Details Last Modified Time Details Appointments None recorded. Lab None recorded. Referral None recorded. Procedures intrathec al pump refill (PROC) - refill with fentanyl 500 mcg/mL 2024 025 [email or web address] Not available 14:42:56 Surgeries implantat ion or replaceme nt of pain pump device; programma ble pump (SURG) 2024 025 [email or web address] Geoffrey Olivares MD, [address] [facility], [address], [place], [address], 16:26:22 Imaging None recorded. Medication Orders None recorded. Patient TargetsNo targets recorded. Patient Instructions Encounter Date Encounter Id Patient Instructions Last Modified By Organization Details Last Modified Time 07/06/2024 [id number] I have discussed in great detail our [...] the patient extensively and informed of the risks of the procedure, including the risk of paralysis, nerve damage, respiratory arrest, arrhythmias, stroke, weakness, and infection, which although very low, could result in or disability. The patient acknowledged to me that they understand and accept these risks. RN EDUCATION Extensive coordination of care provided by RN to educate patient on upcoming procedure and to coordinate obtaining extensive incoming medical records. _ __ __ __ __ __ __ [...] __ __ __ __ __ _ FRANCHESCA: [id number] I have reviewed patient's FRANCHESCA report prior to prescribing Schedule II, III, and IV medications that require review by law. [email or web address] Not available 07/06/2024 15:36:31 10/05/2024 [id number] I have discussed in great detail our [...] __ __ __ __ __ __ _ [facility]: [id number] I have reviewed patient's FRANCHESCA report prior to prescribing Schedule II, III, and IV medications that require review by law. [email or web address] Not available 10/05/2024 12:02:41 12/25/2024 [id number] I have discussed in great detail our [...] IV medications that require review by law. [email or web address] Not available 12/25/2024 09:08:18 12/28/2024 [id number] I have discussed in great detail our [...] __ __ __ __ __ __ _ FRANCHESCA I have reviewed patient's FRANCHESCA report prior to prescribing Schedule II, III, and IV medications that require review by law. Not available 12/30/2024 07:47:40 Reason for Referral None Reported. Results Created Date Observation Date Name Description Value Unit Range Abnormal Flag Note LastModifiedBy Organization Detail LastModifiedTime Result Notes None recorded. 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 & [place] 2 16:22:17 Pain in lower limb 92964752 Active 022 Katiana Wallkins null, [place] - [facility] - [facility] & [place] 2 16:22:33 Myofascial pain 501493846 Active 022 Katiana colvin, DIANE - [facility] - [place] & [place] 2 16:22:51 Nicotine dependence 50152279 Active 022 Katiana colvin, [place] - [facility] [place] & [place] 2 16:23:23 Spinal stenosis of lumbar region 05010188 Active 023 Katiana colvin, [place] - [facility] - [place] & [place] 3 15:16:21 Problem Notes None recorded. Procedures Surgical History Date Name Laterality Status Provider Name and Address Organization Details Recorded Time 5 PUMP CHANGES completed Herlinda CONTRERAS - [facility] - [place] & [place] 12/25/2024 10:16:12 5 Intrathecal Drug (ITD) Pump Refill completed Tracy CONTRERAS - [facility] - [place] & [place] 10/05/2024 13:14:26 5 PUMP CHANGES completed Katiana CONTRERAS - [facility] - [place] & [place] 10/05/2024 11:59:21 4 Intrathecal Drug (ITD) Pump Refill completed Tracy CONTRERAS - [facility] - [place] & [place] 07/06/2024 11:31:21 4 PUMP CHANGES completed Katiana CONTRERAS - [facility] - [place] & [place] 07/06/2024 15:34:45 4 Intrathecal Drug (ITD) Pump Refill completed Tracy CONTRERAS - [facility] - [place] & [place] 04/07/2024 15:20:34 4 PUMP CHANGES completed Tracy CONTRERAS - [facility] - [place] & [place] 04/07/2024 15:21:50 4 Intrathecal Drug (ITD) Pump Refill completed Katiana CONTRERAS - [facility] - [place] & [place] 01/16/2024 17:05:23 4 PUMP CHANGES completed Katiana CONTRERAS - [facility] - [place] & [place] 01/16/2024 17:06:18 4 Intrathecal Drug (ITD) Pump Refill completed Tracy CONTRERAS - [facility] & [place] 10/24/2023 10:38:22 4 PUMP CHANGES completed Carmen CONTRERAS - [facility] [place] 10/24/2023 10:24:27 3 Intrathecal Drug (ITD) Pump Refill completed Tracy CONTRERAS - [facility] & [place] 07/25/2023 10:48:04 3 PUMP CHANGES completed Tracy CONTRERAS - [facility] [place] 07/25/2023 10:48:16 3 Intrathecal Drug (ITD) Pump Refill completed Katiana CONTRERAS - [facility] - [place] & [place] 05/02/2023 12:12:50 3 PUMP CHANGES completed Katiana CONTRERAS - [facility] - [facility] & [place] 05/02/2023 12:13:20 3 Intrathecal Drug (ITD) Pump Refill completed Katiana CONTRERAS - [facility] - [facility] & [place] 2023 17:12:00 3 PUMP CHANGES completed Katiana CONTRERAS - [facility] - [facility] & [place] 2023 17:13:34 3 Intrathecal Drug (ITD) Pump Refill completed Preethi Mattsono [place] - [facility] - [facility] & [place] 11/06/2022 16:29:19 3 PUMP CHANGES completed Preethi Keenecuso [place] - [facility] - [facility] & [place] 11/06/2022 16:32:31 2 Intrathecal Drug (ITD) Pump Refill completed Katiana CONTRERAS - [facility] - [facility] & [place] 07/23/2022 16:28:25 2 PUMP CHANGES completed Katiana Wallkins [place] - [facility] & [place] 07/23/2022 16:31:34 Imaging Results None recorded. Procedure [...] CREAM RECTALLY TWICE DAILY FOR 7 DAYS 02/10 /2025 completed Not Available Not Available Not Available [...] Address Organization Details Last Updated DateTime 5 58129.2 9 g 97.3 [degF] 100 % 100 % 99 /min 142 mm[Hg] 74 mm[Hg] Angelica Silva [facility] & [place] 5 09:26:25 Date Recorded Body weight Body temperature Oxygen saturation Oxygen saturation in Arterial blood by Pulse oximetry Heart rate Systolic blood pressure Diastolic blood pressure Provider Name and Address Organization Details Last Updated DateTime 5 60286.2 5 g 97.8 [degF] 96 % 96 % 93 /min 140 mm[Hg] 86 mm[Hg] Kait Baez [facility] & [place] 5 08:59:34 Date Recorded Body weight Body temperature Oxygen saturation Oxygen saturation in Arterial blood by Pulse oximetry Heart rate Systolic blood pressure Diastolic blood pressure Provider Name and Address Organization Details Last Updated DateTime 5 43703.2 2 g 97.5 [degF] 97 % 97 % 83 /min 170 mm[Hg] 72 mm[Hg] Angelica CONTRERAS [facility] & [place] 5 13:32:12 Date Recorded Body temperature Oxygen saturation Oxygen saturation in Arterial blood by Pulse oximetry Heart rate Systolic blood pressure Diastolic blood pressure Provider Name and Address Organization Details Last Updated DateTime 4 97.3 [degF] 98 % 98 % 90 /min 118 mm[Hg] 70 mm[Hg] Betty CONTRERAS [facility] & [place] 4 10:09:02 Date Recorded Body weight Body temperature Oxygen saturation Oxygen saturation in Arterial blood by Pulse oximetry Heart rate Systolic blood pressure Diastolic blood pressure Provider Name and Address Organization Details Last Updated DateTime 4 34306.5 6 g 97.9 [degF] 98 % 98 % 90 /min 138 mm[Hg] 66 mm[Hg] Angelica Silva [place] - [facility] & [place] 4 10:24:03 Social History None recorded. Functional Status None recorded. Mental Status None recorded. Family History Nothing Reported. Medical History No medical history recorded. Past Encounters Encounter ID Performer Location Encounter Start Date Encounter Closed Date Diagnosis/Indication Diagnosis SNOMED-CT Code Diagnosis ICD10 Code Diagnosis Note [id number] Geoffrey Olivares MD [facility] [address] [address] 07/23/2022 13:16:10 07/23/2022 14:21:07 Spinal stenosis of lumbar region 10104726 M99.53 Radicular pain 23369771 M54.10 Post-juwan ectomy syndrome 83780154 M96.1 Pain in lower limb 17689 006 M79.606 [id number] Geoffrey Olivares MD [facility] [address] [address] 11/06/2022 12:49:16 11/06/2022 14:20:40 Spinal stenosis of lumbar region 33190102 M99.53 Radicular pain 67068630 M54.10 Post-juwan ectomy syndrome 38579336 M96.1 Pain in lower limb 34075 006 M79.606 [id number] Geoffrey Olivares MD [facility] [address] [address] 2023 12:43:20 2023 13:57:09 Spinal stenosis of lumbar region 48051713 M99.53 Radicular pain 56289192 M54.10 Post-juwan ectomy syndrome 50509707 M96.1 Pain in lower limb 04325 006 M79.606 [id number] Geoffrey Olivares MD [facility] [place] [facility] [address] [facility] DIANE [place] [address] 05/02/2023 09:01:09 05/02/2023 10:12:51 Spinal stenosis of lumbar region 85578896 M99.53 Radicular pain 92229968 M54.10 Post-juwan ectomy syndrome 03435644 M96.1 Pain in lower limb 22740 006 M79.606 [id number] Geoffrey Olivares MD [facility] [address] [facility] [address] [place] [place] [address] 07/25/2023 08:12:04 07/25/2023 08:57:55 Spinal stenosis of lumbar region 21232355 M99.53 Radicular pain 64049603 M54.10 Post-juwan ectomy syndrome 42770551 M96.1 Pain in lower limb 15327 006 M79.606 [id number] Geoffrey Olivares MD [facility] [address] [facility] [address] [place] [address] 10/24/2023 08:43:20 10/24/2023 09:58:19 Spinal stenosis of lumbar region 41370322 M99.53 Radicular pain 34441080 M54.10 Post-juwan ectomy syndrome 18126326 M96.1 Pain in lower limb 96444 006 M79.113 [id number] Geoffrey Olivares MD [facility] [address] [place] [address] 01/16/2024 09:29:24 01/16/2024 10:49:59 Spinal stenosis of lumbar region 23014083 M99.53 Radicular pain 07226961 M54.10 Post-juwan ectomy syndrome 39868552 M96.1 Pain in lower limb 53452 006 M79.076 [id number] Geoffrey Olivares MD [facility] [address] [place] [address] 04/07/2024 09:51:05 04/07/2024 10:40:00 Spinal stenosis of lumbar region 09017400 M99.53 M48.061 Radicular pain 49774178 M54.10 Post-juwan ectomy syndrome 27471436 M96.1 Pain in lower limb 67453 006 M79.902 [id number] Geoffrey Olivares MD [facility] [address] [facility] [address] [place] [address] 07/06/2024 09:59:14 07/06/2024 10:44:24 Post-laminectomy syndrome 64038468 M96.1 - It appears that ITPP therapy is effective, but the patient is experienci ng more low back pain.- In efforts to better manage his pain, I will perform a pump increase today. Pump refill was conducted as scheduled. - UDS obtained today and appropriat e.- The patient will follow up for next pump refill. Spinal michel nosis of lumbar region 26805067 M99.53 M48.061 Pain in lower limb 94798 006 M79.316 [id number] Geoffrey Olivares MD [facility] [address] [facility] [address] [place] [address] 10/05/2024 09:14:14 10/05/2024 10:28:57 Post-laminectomy syndrome 67867103 M96.1 - It appears that ITPP therapy is effective in managing low back pain so I will not make any changes to the pump today. Pump refill was conducted as scheduled. - The patient expresses interest in pump replacemen t with a different company due to lack of support and communicat ion from [employer]. I also have had support issues regarding [employer] and feel that the patient would benefit more in the long-term from changing pump companies. - I will proceed with scheduling a pump replacemen t from [employer] to [employer]. - I will follow up for pump replacemen t. Spinal michel nosis of lumbar region 25007443 M99.53 M48.061 Pain in lower limb 36008 006 M79.807 [id number] Geoffrey Olivares MD [facility] [address] [facility] [address] [place] [address] 12/28/2024 13:17:50 12/28/2024 14:52:33 Post-laminectomy syndrome 71219427 M96.1 - The patient is 1 week S/P intratheca l pain pump implant from [employer] to [employer]. on 12/22/24.- Patient states his pain pump is functionin g the same as it was previously providing adequate pain control of his low back pain.- The midline and gluteal incision sites are well-appro ximated with sutures, healing well without signs of infection. The patient was placed in a standing position with the back slightly arched and relaxed. The tape was removed followed by suture removal (all sutures were removed). The patient tolerated the procedure well without epi-proce dural complicati ons or bleeding.- The patient denies post-op complicati ons or signs of infection. - I addressed all questions/ concerns regarding post-op care/restr ictions.- Of note, patient states he is going to find another pain management practice to manage his pump. We will coordinate with patient during his transition .- I will follow up in 1 week for a 2 week post-op check. Spinal michel nosis of lumbar region 31396827 M99.53 M48.061 Pain in lower limb 69252 006 M79.005 [id number] Geoffrey Olivares MD [facility] [address] [place] [address] 12/25/2024 07:47:36 12/25/2024 08:28:32 Post-laminectomy syndrome 85858572 M96.1 - The patient is post op ITTP pump replacemen t from [employer] and [employer] (12/22/24). - The nurse called the patient [...] reassess withdrawal s and pump settings. Spinal michel nosis of lumbar region 15160616 M99.53 M48.061 Pain in lower limb 58239 006 M79.606 Health Concerns Section Related Observation LastModified by Organization Detai ls LastModified Time None Recorded Concern Status LastModified by Organization Details LastModified Time None Recorded Advance Directives Directive None Recorded Payers Insurance Date Sequence Insurance Name Policy Number Policy Starr Covered Member ID Starr Member ID Guarantor Name 12/24/2024 1 [place] Naun Dave [id number] Naun Dave 11/26/2024 2 [employer] (MEDICARE SUPPLEMENT) Naun Dave [id number] Naun Dave 11/26/2024 2 [facility] (MEDICARE SUPPLEMENT) Naun Dave [id number] Naun Dave Notes Date Note Type Note Provider Name and Address Organization Details Recorded Time 4 text/html Mr. Dave was self referred for management of intrathecal pain pump. Patient reports an onset of pain being 20+ years ago. He has since then had lumbar discectomy x2 and lumbar fusion with no benefit for the pain. He was set up with ITPP in 10/2020 and has been managed with Dr. Arizmendi. He was currently on intrathecal Dilaudid and was having a [...] daily. Patient smokes 2 ppd. The patient presents to the clinic today for intrathecal pain pump refill. Patient states that ITPP therapy is managing his pain and he is happy with his current pump settings. He states that with his last increase, he started experiencing jerking that has been bothersome. Pain is rated 3/10 today. Of note, the patient has history of increased sensitivity to neuropathic medications such as Gabapentin, Cymbalta, and Lyrica. Initial complaint: chronic low back painOnset: 20+ [...] helpfulImaging/Studies: non recent imaging Geoffrey Olivares MD [address] [facility], [place], [address], [facility] - [place] & [place] 04/13/2024 15:20:40 4 text/html Mr. Dave was self referred for management of intrathecal pain pump. Patient reports an onset of pain being 20+ years ago. He has since then had lumbar discectomy x2 and lumbar fusion with no benefit for the pain. He was set up with ITPP in 10/2020 and has been managed with Dr. Arizmendi. He was currently on intrathecal Dilaudid and was having a [...] daily. Patient smokes 2 ppd. The patient presents to the clinic today for intrathecal pain pump refill. Patient states that ITPP therapy is effective, but he has been experiencing increased low back pain more recently. Pain is rated 5/10 today. Of note, the patient has history of increased sensitivity to neuropathic medications such as Gabapentin, Cymbalta, and Lyrica. Initial complaint: chronic low back painOnset: 20+ [...] helpfulImaging/Studies: non recent imaging Geoffrey Olivares MD [address] [facility], [place], [address], [facility] - [place] & [place] 07/07/2024 15:43:42 5 text/html Mr. Dave was self referred for management of intrathecal pain pump. Patient reports an onset of pain being 20+ years ago. He has since then had lumbar discectomy x2 and lumbar fusion with no benefit for the pain. He was set up with ITP in 10/2020 and has been managed with Dr. Arizmendi. He was currently on intrathecal Dilaudid and was having a [...] daily. Patient smokes 2 ppd. The patient presents to the clinic today for intrathecal pain pump refill. Patient states that ITPP therapy is effective in managing low back pain. The patient mentions that although ITPP therapy is effective, he is unhappy with his current pump company ([employer]) due to lack of support and communication. He is inquiring about pump replacement with another company. Pain is rated 4/10 today. Of note, the patient has history of increased sensitivity to neuropathic medications such as Gabapentin, Cymbalta, and Lyrica. Initial complaint: chronic low back painOnset: 20+ [...] helpfulImaging/Studies: non recent imaging Geoffrey Olivares MD [address] [facility], [place], [address], [facility] - [place] & [place] 10/06/2024 08:41:29 5 text/html Mr. Dave was self referred [...] helpfulImaging/Studies: non recent imaging Geoffrey Olivares MD [address], [place], [address], [facility] & [place] 12/25/2024 11:38:37 5 text/html Mr. Dave was self referred for management of intrathecal pain pump. Patient reports an onset of pain being 20+ years ago. He has since then had lumbar discectomy x2 and lumbar fusion with no benefit for the pain. He was set up with ITP in 10/2020 and has been managed with Dr. Arizmendi. He was currently on intrathecal Dilaudid and was having a [...] daily. Patient smokes 2 ppd. The patient presents to the clinic today 1 week S/p pump replacement from [employer] to [employer]. on 12/22/24. Patient states his pain pump is functioning the same as it was previously providing adequate pain control of his low back pain. Patient denies complications following his surgical procedure. His pain level today is 6/10. DIMITRIOS SNEED PA-C [address], [place], [address], [facility] & [place] 12/30/2024 07:51:23
--- OUTSIDE RECORDS SUMMARY | 2025-01-30 18:22 | XMS_ITS | Continuity of Care Document ---
Author Organization [facility] & [facility] Address [address] [place] [address] Assessment Encounter Date Assessment Date Assessment LastModified by Organization Details LastModified Time 12/28/2024 12/28/2024 Patient has established care for [...] Modified By Organization Details Last Modified Time 12/28/2024 [id number] I have discussed in great detail our [...] 12/30/2024 07:47:40 Reason for Referral None Reported. Problems Name Problem SNOMED Code Status Onset Date Resolution Date Notes Provider Name and Address Organization Details Recorded Time Post-laminec jacki syndrome 57697045 Active 022 Katiana Orellana null, [place] - [facility] - [place] & [place] 2 16:21:50 Radicular pain 38263933 Active 022 Katiana [place] [facility] [place] 2 16:22:17 Pain in lower limb 32735576 Active 022 Katiana [place] [facility] [place] 2 16:22:33 Myofascial pain 178911867 Active 022 Katiana [place] [facility] [place] 2 16:22:51 Nicotine dependence 06256355 Active 022 Kat[place] [facility] [place] 2 16:23:23 Spinal stenosis of lumbar region 21526228 Active 023 Katiana O[place], [place] - [facility] [place] 3 15:16:21 Problem Notes None recorded. Procedures Surgical History Date Name Laterality Status Provider Name and Address Organization Details Recorded Time 5 PUMP CHANGES completed Herlinda Diaz [place] [facility] [place] 12/25/2024 10:16:12 5 Intrathecal Drug (ITD) Pump Refill completed Tracy CONTRERAS - [facility] - [place] & [place] 10/05/2024 13:14:26 5 PUMP CHANGES completed Katiana CONTRERAS - [facility] - [place] & [place] 10/05/2024 11:59:21 4 Intrathecal Drug (ITD) Pump Refill completed Tracy Tate[place]inette [place] - [facility] - [place] & [place] 07/06/2024 11:31:21 4 PUMP CHANGES completed Katiana Orellana [place] [facility] [place] 07/06/2024 15:34:45 4 Intrathecal Drug (ITD) Pump Refill completed Tracy Pierre [place] - [facility] - [place] 04/07/2024 15:20:34 4 PUMP CHANGES completed Tracy CONTRERAS - [facility] - [place] & [place] 04/07/2024 15:21:50 4 Intrathecal Drug (ITD) Pump Refill completed Katiana CONTRERAS - [facility] - [place] & [place] 01/16/2024 17:05:23 4 PUMP CHANGES completed Katiana CONTRERAS - [facility] - [place] & [place] 01/16/2024 17:06:18 4 Intrathecal Drug (ITD) Pump Refill completed Tracy CONTRERAS - [facility] - [place] & [place] 10/24/2023 10:38:22 4 PUMP CHANGES completed Carmen CONTRERAS - [facility] - [place] & [place] 10/24/2023 10:24:27 3 Intrathecal Drug (ITD) Pump Refill completed [facility] & [place] 07/25/2023 10:48:04 3 PUMP CHANGES completed Tracy CONTRERAS - [facility] - [place] & [place] 07/25/2023 10:48:16 3 Intrathecal Drug (ITD) Pump Refill completed [facility] - [facility] & [place] 05/02/2023 12:12:50 3 PUMP CHANGES completed Katiana CONTRERAS - [facility] - [place] & [place] 05/02/2023 12:13:20 3 Intrathecal Drug (ITD) Pump Refill completed Katiana CONTRERAS - [facility] [place] 2023 17:12:00 3 PUMP CHANGES completed Katiana CONTRERAS - [facility] - [place] & [place] 2023 17:13:34 3 Intrathecal Drug (ITD) Pump Refill completed Preethi Mattsono [place] - [facility] - [place] 11/06/2022 16:29:19 3 PUMP CHANGES completed Preethi Mattsono [place] [facility] [place] & [place] 11/06/2022 16:32:31 2 Intrathecal Drug (ITD) Pump Refill completed Katiana CONTRERAS - [facility] & [place] 07/23/2022 16:28:25 2 PUMP CHANGES completed Katiana CONTRERAS - [facility] 07/23/2022 16:31:34 Imaging Results None recorded. Procedure [...] Address Organization Details Last Updated DateTime 5 20576.2 2 g 97.5 [degF] 97 % 97 % 83 /min 170 mm[Hg] 72 mm[Hg] Angelica Silva [facility] & [place] 5 13:32:12 Social History None recorded. Functional Status None recorded. Mental Status None recorded. Family History Nothing Reported. Medical History No medical history recorded. Past Encounters Encounter ID Performer Location Encounter Start Date Encounter Closed Date Diagnosis/Indication Diagnosis SNOMED-CT Code Diagnosis ICD10 Code Diagnosis Note [id number] Geoffrey Olivares MD [facility] [address] [place] [address] 12/28/2024 13:17:50 12/28/2024 14:52:33 Post-laminectomy syndrome 38684435 M96.1 - The patient is 1 week S/P intratheca l pain pump implant from [employer] to [employer]. on 12/22/24.- Patient states his [...] for a 2 week post-op check. Spinal mitzy nosis of lumbar region 28623455 M99.53 M48.061 Pain in lower limb 11844 006 M79.448 [id number] Geoffrey Olivares MD [facility] [address] [place] [address] 12/25/2024 07:47:36 12/25/2024 08:28:32 Post-laminectomy syndrome 60476909 M96.1 - The patient is post op ITTP pump replacemen t from [employer] and [employer] (12/22/24). - The nurse called the patient [...] settings. Spinal mitzy nosis of lumbar region 38354561 M99.53 M48.061 Pain in lower limb 96245 006 M79.606 Health Concerns Section Related Observation LastModified by Organization Detai ls LastModified Time None Recorded Concern Status LastModified by Organization Details LastModified Time None Recorded Payers Encounter Date Sequence Insurance Name Policy Number Policy Starr Covered Member ID Starr Member ID Guarantor Name 12/28/2024 1 [employer] (MEDICARE) Naun Dave [id number] Naun Dave 12/28/2024 2 [facility] (MEDICARE SUPPLEMENT) Naun Dave [id number] Naun Dave Notes Date Note Type Note Provider Name and Address Organization Details Recorded Time 12/28/2024 text/html Mr. Dave was robert f referred for management of intrathecal pain pump. [...] level today is 6/10. DIMITRIOS SNEED PA-C [address], [place], [address], [facility] - [place] & [place] 12/30/2024 07:51:23
[2025-01-30] MEDS: FAMOTIDINE 20MG/2ML VIAL 20 MG IV (18:29)
[2025-01-30] MEDS: ASPIRIN 81MG CHEWABLE TABLET 324 MG PO (18:29)
[2025-01-30] MEDS: NITROGLYCERIN 0.4MG SL TABLET 0.4 MG SL ×2 (18:29→18:45)
[2025-01-30 18:35] LABS: Basophils # 0.1 K/mm3 (0-0.2); Eosinophils # 0.1 Kmm3 (0.0-0.4); Eosinophils % 1.9 % (0.1-12.0); Hematocrit 40.8 % (42.0-52.0); Hemoglobin 14.3 g/dL (14.1-18.0); Immature Granulocytes # 0.02 10^3uL; Immature Granulocytes % 0.4 %; Lymphocytes # 1.8 K/mm3 (0.7-4.5); Mean Corpuscular Hemoglobin 33.4 pg (27.0-31.2); Mean Corpuscular Volume 95.3 fl (80-94); Mean Platelet Volume 9.8 fl (7.4-10.4); Monocytes # 0.4 K/mm3 (0.1-1.0); Monocytes % 7.8 % (1.7-9.3); Neutrophils # 2.9 K/mm3 (1.8-7.8); Neutrophils % 54.9 % (37.0-80.0); Nucleated Red Blood Cells # 0 10^3/uL; Nucleated Red Blood Cells % 0 %; Platelet Count 182 K/mm3 (142-424); Red Blood Count 4.28 M/mm3 (4.60-6.20); Red Cell Distribution Width 12.1 % (11.5-17.5); Red Cell Distribution Width-SD 42.5 fL; White Blood Count 5.2 K/mm3 (4.8-10.8)
[2025-01-30 18:39] LABS: Alanine Aminotransferase 15 U/L (12-78); Albumin/Globulin Ratio 1.4 (1.1-1.8); Alkaline Phosphatase 40 U/L (38-126); Anion Gap 11.8 mEq/L (5-15); Aspartate Amino Transferase 24 U/L (17-59); Bilirubin,Total 0.5 mg/dl (0.2-1.3); Blood Urea Nitrogen 7 mg/dl (9-20); Carbon Dioxide 31 mmol/L (22.0-30.0); Chloride 100 mmol/L (98-107); Creatinine Clearance Estimated 56 mL/min (50-200); Estimated Glomerular Filt Rate 46 ml/min (>60); GFR (African American) 55 ML/MIN (>60); Globulin 3.7 g/dL (1.3-3.2); Glucose 125 mg/dl (74-100); Lipase 332 U/L (23-300); Magnesium 2.1 mg/dl (1.6-2.3); Potassium 3.8 mmoL/L (3.5-5.1); Sodium 139 mmol/L (136-145); Total Protein,Serum 8.7 g/dl (6.3-8.2)
[2025-01-30 18:42] LABS: INR 0.96 (0.9-1.1); Prothrombin Time 10.7 seconds (10.1-12.5)
--- NOTE | 2025-01-30 18:45 | ECG_ITS ---
APPROVED REPORT Exam: Resting ECG HR:92 bpm ECG Measurements Heart Rate 92 AXES TX 181 P 84 QRSd 138 QRS 90 QT 371 T 68 QTc 421 Conclusion SINUS RHYTHM RIGHT BUNDLE BRANCH BLOCK [120+ ms QRS DURATION, UPRIGHT V1, 40+ ms S IN I/aVL/V4/V5/V6] ABNORMAL ECG UNCONFIRMED REPORT Electronically signed by : Chano Alejandro, 01/30/2025 23:21:27
--- NOTE | 2025-01-30 18:45 | PC.NURSE ---
pts family member at bedside come to nurses station and stated that pt was having pain again. TRN went into check on pt. pt holding his epigastric area stating he is having chest pain. new EKG obtained, REMEDIAL TE[employer]ER notified of new episode of pain.
[2025-01-30 18:52] LABS: Troponin I < 0.01 ng/ml (0.00-0.034)
[2025-01-30] MEDS: ONDANSETRON 4MG/2ML VIAL 4 MG IV (18:53)
--- NOTE | 2025-01-30 19:05 | CT_ITS ---
PROCEDURE INFORMATION: Exam: CT Abdomen And Pelvis With Contrast Exam date and time: 01/30/2025 7:29 PM Age: 74 years old Clinical indication: Other: Elevated lipase/epigastric pain TECHNIQUE: Imaging protocol: Computed tomography of the abdomen and pelvis with contrast. Radiation optimization: All CT scans at this facility use at least one of these dose optimization techniques: automated exposure control; mA and/or kV adjustment per patient size (includes targeted exams where dose is matched to clinical indication); or iterative reconstruction. Contrast material: ISOVUE; Contrast volume: 75 ml; Contrast route: IV; COMPARISON: CT LUNG SCREENING 11/05/2024 3:00 PM FINDINGS: Liver: Fatty infiltration. No mass. Gallbladder and biliary ducts: Calculi without wall thickening or pericholecystic fat stranding. No biliary ductal dilatation identified. No obvious radiopaque choledocholithiasis identified. Pancreas: Normal. No ductal dilation. Spleen: Normal. No splenomegaly. Adrenal glands: Normal. No mass. Kidneys and ureters: No nephroureterolithiasis. No hydronephrosis. Stomach and bowel: Unremarkable. No obstruction. No mucosal thickening. Appendix: No evidence of appendicitis. Intraperitoneal space: Unremarkable. No free air. No significant fluid collection. Vasculature: Atherosclerotic calcification of aortoiliac arteries without aneurysm. Lymph nodes: Unremarkable. No enlarged lymph nodes. Urinary bladder: Unremarkable as visualized. Reproductive: Unremarkable as visualized. Bones/joints: ORIF of L5/S1 level with L5/S1 fusion. No acute findings. Soft tissues: Unremarkable. IMPRESSION: 1. No acute findings identified. 2. No CT findings of pancreatitis which does rule out low-grade pancreatitis. 3. Cholelithiasis. 4. Fatty liver infiltration.
[2025-01-30 19:23] LABS: HIV Combo NEGATIVE (Negative)
[2025-01-30 19:31] LABS: Hepatitis C Ab Qual. W/ RFX NEGATIVE (Negative)
[2025-01-30] MEDS: IOPAMIDOL-370 (76%);100ML BOTTLE 75 ML IV (19:34)
[2025-01-30] MEDS: SODIUM CHLORIDE 0.9% 10ML SYR (RAD ONLY) 10 ML IV (19:34)
[2025-01-30] MEDS: HYDROMORPHONE 2MG/ML SYRINGE 0.5 MG IV (20:13)
[2025-01-30] MEDS: BELLADONNA ALKALOIDS 60 ML ML PO (20:42)
[2025-01-30 21:50] LABS: Troponin I < 0.01 ng/ml (0.00-0.034)
== END 2025-01-30 22:16 | disposition home or self-care (01) ==
PROVIDERS: Nurse Practitioner; Emergency Provider Student in an Organized Health Care Education/Training Program; PCP Internal Medicine Adolescent Medicine
DX: R07.89 Other chest pain (principal); K80.80 Other cholelithiasis without obstruction; I45.10 Unspecified right bundle-branch block; I10 Essential (primary) hypertension; F17.210 Nicotine dependence, cigarettes, uncomplicated
CPT/HCPCS: 71045; 74177; 80053; 80074; 83690; 83735; 84484; 85025; 85610; 87389; 93005; 96374; 96375; 99285; J1171; J2405; Q9967

== ENCOUNTER 2025-02-02 10:17 | Outpatient (CLI) | payer MEDICARE, OTHER, SELFPAY ==
--- OUTSIDE RECORDS SUMMARY | 2024-11-28 17:30 | XMS_ITS ---
Author Organization [facility] Address [address] [place] [address] Care Team Providers Care Ice Delivery Driver Name Role Phone Gregorio Ware Primary Care Provider [phone] Migration, Provider Unavailable Unavailable Allergies Allergen (clinical drug ingredient) Drug/Non Drug Allergy documented on EMR Reaction Allergy Type Onset Date Status duloxetine Cymbalta confusion Drug Allergy Active pregabalin Lyrica confusion Drug Allergy Active gemfibrozil Lopid increase in live r enzymes Drug Allergy Active gabapentin Neurontin Unknown Drug Allergy [facility] Conversion Encounter Medications Medication SIG [...] *Please review and pick correct strength-formulation from [facility] options. If intended option is not shown, discontinue and re-order from Quick Search* Active fentaNYL pain pump *Pleas e review and pick correct strength-formulation from Medispan options. If intended option is not shown, discontinue and re-order from Quick Search* Active Encounters Encounter Location Date Provider Diagnosis [facility] [address] [facility] [address] [place] [address] 11/28/2024 Provider Migration Essential hypertension I10 and [...] Provider Name:Gregorio Ware, 03/01/2025 09:45:00 AM, [address] [facility] [address] [facility], [address], [place], [address], Progress Notes * Naun DAVE LDOB:1950 (75 yo M)Acc No.[id number]:11/28/2024 Patient: Cecelia VLADIMIR Naun L Provider: Jackson Perry :1950 A ge:74 Y S ex:Male Date:11/28/2024 [address] [id number] Pcp:Gregorio Ware Subjective: * Chief Complaints: * [...] Electronic signature of Prov marvin Migration on 02/02/2025 at 10:23 AM EDT Sign off status: Pending * Provider: Jackson santiago Migration Date: 11/28/2024 Generated for Abby toure/Veronica/Spenser on: 0 02/02/2025 10:23 AM EDT
--- OUTSIDE RECORDS SUMMARY | 2025-02-01 05:15 | XMS_ITS ---
Author Organization [facility] Address [address] [place] [address] Care Team Providers Care Small Products Ii Assembler Name Role Phone Gregorio Ware Primary Care Provider Allergies Allergen (clinical drug ingredient) Drug/Non Drug Allergy documented on EMR Reaction Allergy Type Onset Date Status duloxetine Cymbalta confusion Drug Allergy Active pregabalin Lyrica confusion Drug Allergy Active gemfibrozil Lopid increase in live r enzymes Drug Allergy Active gabapentin Neurontin Unknown Drug Allergy Active Results Component Value Reference Range Notes THYROID PANEL WITH TSH (7444 ) (Not yet reviewed by provider) Interpretation: Performing Lab:СЕРГЕЙ, [facility] [id number], [place] [id number] [place]t Ng Notes/Report: NON-FASTING; NON-FASTING; NON-FASTING TSH 0.61 0.40-4.50 mIU/L LIPID PANEL, STANDARD (7600) (Not yet reviewed by provider) Interpretation: Performing Lab:СЕРГЕЙ, [facility] [address], [place] [id number] [place]t Ng Notes/Report: NON-FASTING; NON-FASTING; NON-FASTING COMPREHENSIVE METABOLIC PANE L (34667) (Not yet reviewed by provider) Interpretation: Performing Lab:[facility], [facility] [id number], [place] [id number] [place]t Ng Notes/Report: NON-FASTING; NON-FASTING; NON-FASTING MAGNESIUM (622) (Not yet rev iewed by provider) Interpretation: Performing Lab:СЕ[facility]Й, [facility] [id number], [place] [id number] [place]t Ng Notes/Report: NON-FASTING; NON-FASTING; NON-FASTING CBC (INCLUDES DIFF/PLT) (639 9) (Not yet reviewed by provider) Interpretation: Performing Lab:СЕ[facility]Й [facility] [address], [place] [id number] [place]t Ng Notes/Report: NON-FASTING; NON-FASTING; NON-FASTING WHITE BLOOD CELL COUNT 4.6 3.8-10.8 Thousand/ uL RED BLOOD CELL COUNT 4.02 4.20-5.80 Million/uL HEMOGLOBIN 13.4 13.2-17.1 g/dL HEMATOCRIT 40.2 38.5-50.0 % MCV 100.0 80.0-100.0 fL MCH 33.3 27.0-33.0 pg MCHC 33.3 32.0-36.0 g/dL For adults, a slight decrease in the calculated MCHC value (in the range of 30 to 32 g/dL) is most likely not clinically significant; however, it should be interpreted with caution in correlation with other red cell parameters and the patient's clinical condition. RDW 13.1 11.0-15.0 % PLATELET COUNT 170 140-400 Thousand/uL MPV 10.1 7.5-12.5 fL ABSOLUTE NEUTROPHILS 3114 3565-8662 cells/uL ABSOLUTE LYMPHOCYTES 6079 837-5252 cells/uL ABSOLUTE MONOCYTES 281 200-950 cells/uL ABSOLUTE EOSINOPHILS 78 15-500 cells/uL ABSOLUTE BASOPHILS 41 0-200 cells/uL NEUTROPHILS 67.7 LYMPHOCYTES 23.6 MONOCYTES 6.1 EOSINOPHILS 1.7 BASOPHILS 0.9 FERRITIN (457) (Not yet revi ewed by provider) Interpretation: Performing Lab:СЕРГЕЙ [facility] [address], [place] [id number] Colt Ng Notes/Report: NON-FASTING; NON-FASTING; NON-FASTING FERRITIN 116 24-380 ng/mL PSA, TOTAL (5363) (Not yet r eviewed by provider) Interpretation: Performing Lab:СЕРГЕЙ [facility] [address], [facility] [id number] Colt gN Notes/Report: NON-FASTING; NON-FASTING; NON-FASTING PSA, TOTAL 1.17 < OR = 4.00 ng/mL The total PSA value from this assay system is standardized against the WHO standard. The test result will be approximately 20% lower when compared to the equimolar-standardized total PSA (Mohan Belkis). Comparison of serial PSA results should be interpreted with this fact in mind. This test was performed using the Siemens chemiluminescent method. Values obtained from different assay methods cannot be used interchangeably. PSA levels, regardless of value, should not be interpreted as absolute evidence of the presence or absence of disease. Reason For Referral Reason Gallbladder ultrasou nd and appointment with Dr. Izquierdo Diagnosis 1 Symptomatic cholelit hiasis (K80.20) Referral Organization [facility] DORA PEARSON Referring Provider First Name Gregorio Referring Provider Last Name Chaz Referring Provider Speciality Internal M edicine Referred Organization [facility] Referred Address [address] [place] [address], [place], [place],[address], Referred Provider Specialty General Surg augustine General Notes Jennifer Ferrer 2024 10:13:27 AM >sent to [facility] to scheduled u/S Referral Priority Routine Referral Appointment Date 02/03/2025 REASON FOR VISIT 4 Month follow up., Was seen in the ER Saturday night for chest pain and was told he has gallstones Medications Medication SIG (Take, Route, Frequency, Duration) Notes Start Date End Date Status Omeprazole 20 MG 1 cap(s) orally once a day prn for 90 Active fentaNYL pain pump *Pleas e review and pick correct strength-formulation from farmhopping options. If intended option is not shown, discontinue and re-order from Quick Search* Active Omeprazole 20 MG 1 cap(s) orally once a day for 90 days 10/19/2024 Active Lisinopril 20 MG 1/2 tab(s) orally once a day for 90 days Active Baclofen 20 MG 1 tab(s) orally 3 times a day for 90 Active Euthyrox 125 MCG 1 tablet in the morning on an empty stomach Orally Once a day for 90 days Active Tamsulosin HCl 0.4 MG 2 capsules orally once a day for 90 days Active MOMETASONE FUROATE TOPICAL 0.1% 1 JODY APPLIED TOPICALLY ONCE A DAY for 7 DAYS *Please review for potential replacement for e-prescription and drug interaction check* 10/19/2024 Active Social History Tobacco Use: Social History Observation Description Date Details (start date - stop date) Current Smoker NA - NA Smoking: Question Answer Notes Are you a: current smoker How often do you smoke cigarettes? every day How many cigarettes a day do you smoke? 31 or mo re Are you interested in quitting? Ready to quit Problems Problem Type SNOMED Code ICD Code Onset Dates Problem Status W/U Status Risk Notes Problem [id number] Restless leg syndrome (G25.81) Active confirmed Problem [id number] Symptomatic cholelithiasis (K80.20) Active confirmed Vital Signs Temperature 97.7 degrees Fahrenheit 02/02/20 25 Blood pressure systolic 132 mm Hg 02/02/20 25 Blood pressure diastolic 70 mm Hg 025 Heart Rate 76 /min 02/01/2025 Height 74 in 02/01/2025 Weight 206 lbs 02/01/2025 BMI 26.45 kg/m2 02/01/2025 Encounters Encounter Location Date Provider Diagnosis [facility] [address] [facility] [address] [place] [address] 02/01/2025 Gregorio Ware Hyperlipemia, idiopathic familial E78.5 ; Acquired hypothyroidism E03.9 ; Essential hypertension I10 ; Benign prostatic hyperplasia with lower urinary tract symptoms, unspecified morphology N40.1 ; Restless leg syndrome G25.81 and Symptomatic cholelithiasis K80.20 Assessments Encounter Date Diagnosis (ICD Code) Assessment Notes Treatment Notes Treatment Clinical Notes Section Notes 02/01/2025 Hyperlipemia, idiopathic familial (ICD-10 - E78.5) 02/01/2025 Acquired hypothyroidism (ICD-10 - E03.9) Clinically euthyroid, check labs. Please note I will review all labs personally 02/01/2025 Essential hypertension (ICD-10 - I10) 02/01/2025 Benign prostatic hyperplasia with lower urinary tract symptoms, unspecified morphology (ICD-10 - N40.1) Stable, check labs 02/01/2025 Restless leg syndrome (ICD-10 - G25.81) Sounds he has restless leg. Check ferritin and magnesium along with other labs. Follow-up 1 month, trial of medication if he wishes at that point if we cannot find any metabolic issues 02/01/2025 Symptomatic cholelithiasis (ICD-10 - K80.20) Discussed with patient that surgery referral would be more appropriate, will get ultrasound and then make referral to [facility] surgery at his request. I reviewed ER notes available from emergency department. Reviewed labs, reviewed discharge plan, personally reconciled medication. Plan Of Treatment Treatment Notes Assessment Notes Acquired hypothyroidism Clinically euthyroid, check labs. Please note I will review all labs personally Benign prostatic hyperplasia with lower urinary tract symptoms, unspecified morphology Stable, check labs Restless leg syndrome Sounds he has restless leg. Check ferritin and magnesium along with other labs. Follow-up 1 month, trial of medication if he wishes at that point if we cannot find any metabolic issues Symptomatic cholelithiasis Discussed wit h patient that surgery referral would be more appropriate, will get ultrasound and then make referral to [facility] surgery at his request. Pending Test Test Name Order Date Ultrasound : Gallbladder 02/01/2025 THYROID PANEL WITH TSH (7444) 02/01/2025 LIPID PANEL, STANDARD (7600) 02/01/2025 COMPREHENSIVE METABOLIC PANEL (71717) MAGNESIUM (622) 02/01/2025 CBC (INCLUDES DIFF/PLT) (6399) FERRITIN (457) 02/01/2025 PSA, TOTAL (5363) 02/01/2025 Referrals Referral Date Details 02/01/2025 02/01/2025, [facility] loco ultrasound and appointment with Dr. Izquierdo, [address] [place], [address], Next Appt Details Follow Up: prn,4 Weeks, Reas on: Provider Name:Gregorio Ware, 03/01/2025 09:45:00 AM, [address] [facility], [address], [place], [address], Progress Notes * Naun DAVE LDOB:1950 (75 yo M)Acc No.[id number]:02/01/2025 Progress Notes Patient: Nuan CORNEJO Provider: Yumiko Ware MD :1950 A ge:75 Y S ex:Male Date:02/01/2025 Address:[place], [id number] Subjective: * Chief Complaints: * 1 . 4 Month follow up.. 2. Was seen in the ER Saturday night for chest pain and was told he has gallstones. * HPI: g en: History as above. Was seen in the ER for pain 20 minutes after eating. Troponins were negative. Mildly elevated lipase. CT scan showed evidence of cholelithiasis. For what ever reason ER recommend that he go see Dr. Romano. He is here today to follow-up. Has some problems after he eats, but also complains of some poor sleep, has lots of jerking in his arms and legs when he sleeps at night. Gets about 3 and half hours of sleep at night only. * Medical History: C hronic back pain and neuropathy s/p 3 surgeries - most recent with Dr. Razo in 2010, Hypothyroidism, GERD, Anxiety, HTN, Hyperlipidemia, colonoscopy April 2016 with multiple tubular adenomas, repeat 05/13 with 3 tubular adenomas, LDCT scan 10/15 - 6 month f/u recommended - CT in 04/14 with stable nodules - again stable in 01/14 and Birads 1 in 11/17, Appropriate UDS 06/2020, Covid 19-04/2022, Pain Pump w fentanyl. * Surgical History: b ack surgery x 3 , repair tendon-lt hand 05/2018, Pain pump insertion 11/2020, Pain pump replacement 11/2024. * Hospitalization/Major Diagno stic Procedure: c hest pains , back surgery . * Family History: F ather: , diagnosed with Cancer. M other: , diagnosed with Diabetes, Heart Disease. P aternal Grand Father: . P aternal Grand Mother: . M aternal Grand Father: . M aternal Grand Mother: . P aternal uncle: . P aternal aunt: alive. M aternal uncle: . M aternal aunt: alive. S iblings: alive, sister . C sabino: alive. 4 brother(s) , 1 sister(s) - healthy. 1 son(s) , 1 daughter(s) - healthy. . * Social History: S moking A re you a: c urrent smoker, H ow often do you smoke cigarettes? e very day, H ow many cigarettes a day do you smoke? 3 1 or more, A re you interested in quitting? R romain to quit. R ecreational drug use: no. Exercise: no. Home smoke detector use: yes. Caffeine: yes, frequency: 2-4 cups coffee perday. Living Will: No. Alcohol: no. Sexually active: yes. Travel outside [place]: no. 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 * Medications: T aking fentaNYL , Notes to Pharmacist: pain pump *Please review and pick correct strength-formulation from farmhopping options. If intended option is not shown, discontinue and re-order from Quick Search*, Taking Omeprazole 20 MG Capsule Delayed Release 1 cap(s) orally once a day prn , Taking Baclofen 20 MG Tablet 1 tab(s) orally 3 times a day , Taking Lisinopril 20 MG Tablet 1/2 tab(s) orally once a day , Taking Omeprazole 20 MG Capsule Delayed Release 1 cap(s) orally once a day , Taking MOMETASONE FUROATE TOPICAL 0.1% CREAM 1 JODY APPLIED TOPICALLY ONCE A DAY , Notes to Pharmacist: *Please review for potential replacement for e-prescription and drug interaction check*, Taking Tamsulosin HCl 0.4 MG Capsule 2 capsules orally once a day , Taking Euthyrox 125 MCG Tablet 1 tablet in the morning on an empty stomach Orally Once a day , Medication List reviewed and reconciled with the patient * Allergies: L opid: increase in liver enzymes, Neurontin, Cymbalta: confusion, Lyrica: confusion. Objective: * Vitals: N urse: be, Pain: 3, Temp: 97.7, RR: 16, HR: 76, BP: 132/70, Ht: 74, Wt: 206, BMI:26.45. * Examination: G eneral Examination: General P leasant and Cooperative, NAD on RA,. Heart: R egular Rate and Rhythm, no murmur, rubs or gallops. Lungs: L CTAB, No wheezes, crackles or rhonchi, Good air movement,. Extremities: n ormal ROM,, no clubbing, no edema. Psych N ormal Mood/Affect. Assessment: * Assessment: 1. H yperlipemia, idiopathic familial - E78.5 (Primary) 2 . A cquired hypothyroidism - E03.9 3 . E ssential hypertension - I10 4 . B enign prostatic hyperplasia with lower urinary tract symptoms, unspecified morphology - N40.1 & #160; 5 . R estless leg syndrome - G25.81 6 . S ymptomatic cholelithiasis - K80.20 Plan: * Treatment: 2. A cquired hypothyroidism L AB: THYROID PANEL WITH TSH (7444) L AB: LIPID PANEL, STANDARD (7600) L AB: COMPREHENSIVE METABOLIC PANEL (18372) L AB: PSA, TOTAL (5363) Notes: Clinically euthyroid, check labs. Please note I will review all labs personally 3. B enign prostatic hyperplasia with lower urinary tract symptoms, unspecified morphology L AB: COMPREHENSIVE METABOLIC PANEL (08613) L AB: PSA, TOTAL (5363) Notes: Stable, check labs 4. R estless leg syndrome L AB: MAGNESIUM (622) L AB: CBC (INCLUDES DIFF/PLT) (6399) L AB: FERRITIN (457) Notes: Sounds he has restless leg. Check ferritin and magnesium along with other labs. Follow-up 1 month, trial of medication if he wishes at that point if we cannot find any metabolic issues 5. S ymptomatic cholelithiasis I maging: Ultrasound : Gallbladder * Notes: Discussed with patient that surgery referral would be more appropriate, will get ultrasound and then make referral to [facility] surgery at his request.?? Clinical Notes: I reviewed ER notes available from emergency department. Reviewed labs, reviewed discharge plan, personally reconciled medication.? Referral To: ?Reason:Gallbladder ultrasound and appointment with Dr. Izquierdo * Procedure Codes: G 2211 Complex e/m visit add on, 1111F DSCHRG MED/CURRENT MED MERGE * Follow Up: p rn,4 Weeks * * Sign off status: Completed true * Provider: Yumiko Ware MD Date: 0 02/01/2025 Generated for Printi ng/Faxing/eTransmitting on: 0 02/02/2025 10:22 AM EDT History and Physical Notes * HPI (History of Present Illness) Category Sub-Category Detail Notes Category Not es gen History as above. Was seen in the ER for pain 20 minutes after eating. Troponins were negative. Mildly elevated lipase. CT scan showed evidence of cholelithiasis. For what ever reason ER recommend that he go see Dr. Romano. He is here today to follow-up. Has some problems after he eats, but also complains of some poor sleep, has lots of jerking in his arms and legs when he sleeps at night. Gets about 3 and half hours of sleep at night only. Examination Category Sub-Category Detail Notes Category Not es General Examination Heart: Regular Rate and Rhythm, no murmur, rubs or gallops Lungs: LCTAB, No wheezes, c rackles or rhonchi, Good air movement, Extremities: normal ROM,, no club nara, no edema General Pleasant and Coopera tive, NAD on RA, Psych Normal Mood/Affect Consultation Request Notes Referral Date Referring Provider Referred Provider Not es 02/01/2025 Gregorio Ware , Gallbladder ultrasound and appointment with Dr. Izquierdo
--- NOTE | 2025-02-02 | US_ITS ---
FINAL REPORT CLINICAL HISTORY: SYMPTOMATIC CHOLELITHIASIS FINDINGS: RIGHT UPPER QUADRANT ULTRASOUND Technique: Ultrasound images of the right upper quadrant were obtained. There is fatty infiltration of the liver. There are multiple gallstones and sludge within the gallbladder. Gallbladder wall is in the upper limits of normal measuring 4 mm in thickness. The gallbladder is incompletely distended. Common duct measures 6 mm. The right kidney is unremarkable. IMPRESSION: Multiple gallstones and sludge. Gallbladder wall is in the upper limits of normal, accentuated by incomplete distention. Reviewed, Interpreted and Dictated by Saul Hansen MD Transcribed by Paula Santiago Authenticated and [facility]
--- OUTSIDE RECORDS SUMMARY | 2025-02-02 10:22 | XMS_ITS | Patient Health Record ---
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 Name Role Phone Gregorio Ware Primary Care Provider [phone] Migration, Provider Unavailable Unavailable Allergies Allergen (clinical drug ingredient) Drug/Non Drug Allergy documented on EMR Reaction Allergy Type Onset Date Status duloxetine Cymbalta confusion Drug Allergy Active pregabalin Lyrica confusion Drug Allergy Active gemfibrozil Lopid increase in live r enzymes Drug Allergy Active gabapentin Neurontin Unknown Drug Allergy Active Results Component Value Reference Range Notes MAGNESIUM (622) (Not yet rev iewed by provider) Interpretation: Performing Lab:СЕРГЕЙ, [facility] [address], [place] DsbjRF[address] [place] Ng Notes/Report: NON-FASTING; NON-FASTING; NON-FASTING CBC (INCLUDES DIFF/PLT) (639 9) (Not yet reviewed by provider) Interpretation: Performing Lab:СЕРГЕЙ, [facility] [id number], [place] AmwkEU[address] Colt Ng Notes/Report: NON-FASTING; NON-FASTING; NON-FASTING WHITE [...] MPV 10.1 7.5-12.5 fL ABSOLUTE NEUTROPHILS 3114 4740-6451 cells/uL ABSOLUTE LYMPHOCYTES 6212 019-1459 cells/uL ABSOLUTE MONOCYTES 281 200-950 cells/uL ABSOLUTE EOSINOPHILS 78 15-500 cells/uL ABSOLUTE BASOPHILS 41 0-200 cells/uL NEUTROPHILS 67.7 LYMPHOCYTES 23.6 MONOCYTES 6.1 EOSINOPHILS 1.7 BASOPHILS 0.9 FERRITIN (457) (Not yet revi ewed by provider) Interpretation: Performing Lab:СЕРГЕЙ, [facility] [address], BlurrXcyzZV[address] Colt Ng Notes/Report: NON-FASTING; NON-FASTING; NON-FASTING FERRITIN 116 24-380 ng/mL PSA, TOTAL (5363) (Not yet r eviewed by provider) Interpretation: Performing Lab:СЕРГЕЙ, [facility] [address], [place]nodCO[address] Colt Ng Notes/Report: NON-FASTING; NON-FASTING; NON-FASTING PSA, TOTAL 1.17 < OR = 4.00 ng/mL The total PSA value from this assay system is standardized against the WHO standard. The test result will be approximately 20% lower when compared to the equimolar-standardized total PSA (Mohan Wingate). Comparison of serial PSA results should be interpreted with this fact in mind. This test was performed using the Siemens chemiluminescent method. Values obtained from different assay methods cannot be used interchangeably. PSA levels, regardless of value, should not be interpreted as absolute evidence of the presence or absence of disease. COMPREHENSIVE METABOLIC PANE L (07757) (Not yet reviewed by provider) Interpretation: Performing Lab:СЕРГЕЙ, [facility] [address], YuMingleVjssEF[address] Colt Ng Notes/Report: NON-FASTING; NON-FASTING; NON-FASTING LIPID PANEL, STANDARD (7600) (Not yet reviewed by provider) Interpretation: Performing Lab:СЕРГЕЙ, [facility] [address] [facility] Colt Ng Notes/Report: NON-FASTING; NON-FASTING; NON-FASTING THYROID PANEL WITH TSH (7444 ) (Not yet reviewed by provider) Interpretation: Performing Lab:СЕРГЕЙ, [facility] [address], [facility] Hospital[facility]affUB[address] Colt Ng Notes/Report: NON-FASTING; NON-FASTING; NON-FASTING TSH 0.61 0.40-4.50 mIU/L CT Scan : Chest, Lung Cancer Screening Reviewed date:11/11/2024 12:41:24 PM Interpretation: Performing Lab: Notes/Report: Reason For Referral Reason Needs low-dose CT sc an Diagnosis 1 Tobacco dependence ( F17.200) Referral Organization [facility] Referring Provider First Name Gregorio Referring Provider Last Name Chaz Referring Provider Speciality Internal M edicine Referred Organization [facility] Referred Address [address] [place] [phone], Referred Provider Specialty Diagnostic R adiology General Notes Jennifer Ferrer 2024 11:28:53 AM >sent to [facility] to schedule Referral Priority Routine Referral Appointment Date 11/05/2024 Reason Gallbladder ultrasou nd and appointment with Dr. Izquierdo Diagnosis 1 Symptomatic cholelit hiasis (K80.20) Referral Organization [facility] Referring Provider First Name Gregorio Referring Provider Last Name Chaz Referring Provider Speciality Internal M edicine Referred Organization [facility] Referred Address [address] [place] [phone], Referred Provider Specialty General Surg augustine General Notes Jennifer Ferrer 2024 10:13:27 AM >sent to [facility] to scheduled u/S Referral Priority Routine Referral Appointment Date 02/03/2025 Medications Medication SIG (Take, Route, Frequency, Duration) Notes Start Date End Date Status Euthyrox 125 MCG 1 tablet in the morning on an empty stomach Orally Once a day for 90 days Active Tamsulosin HCl 0.4 MG 2 capsules orally once a day for 90 days Active Omeprazole 20 MG 1 cap(s) orally once a day prn for 90 Active fentaNYL pain pump *Pleas e review and pick correct strength-formulation from Channel M options. If intended option is not shown, discontinue and re-order from Quick Search* Active MOMETASONE FUROATE TOPICAL 0.1% 1 JODY [...] 3 times a day for 90 Active Immunizations Vaccine Route Administration [...] Problem Status W/U Status Risk Notes Problem 43402898 Generalized anxiety disorder (F41.1) Active confirmed Problem 629553365 Chronic pain syndrome (G89.4) Active confirmed Problem 05167229 Diplopia (H53.2) Active confirmed Problem 074908427 Lumbago with sciatica, left side (M54.42) Active confirmed Problem 78377292 Personal history of nicotine dependence (Z87.891) Active confirmed Problem 79122806 Essential hypertension (I10) Active confirmed Problem 367906787 Hyperlipemia, idiopathic familial (E78.5) Active confirmed Problem 046756423 GERD without esophagitis (K21.9) Active confirmed Problem 786715259 Tubular adenoma of colon (D12.6) Active confirmed Problem 71616798 Restless leg syndrome (G25.81) Active confirmed Problem 43350138 Idiopathic peripheral neuropathy (G60.9) Active confirmed Problem 637114498 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) Active confirmed Problem 864017235 Acquired hypothyroidism (E03.9) Active confirmed Problem 71371153 Dysthymia (F34.1) Active confirmed Problem 939689977 Pulmonary nodule (R91.1) Active confirmed Problem 47647093 Lumbar spinal stenosis (M48.06) Active confirmed Problem 203686224 Benign prostatic hyperplasia with lower urinary tract symptoms, unspecified morphology (N40.1) Active confirmed Problem 01447497 Tobacco dependen ce (F17.200) Active confirmed Problem 972483361 Healthcare maintenance (Z00.00) Active confirmed Problem 783388790388773 Drug induced constipation (K59.03) Active confirmed Problem 389252940 Symptomatic cholelithiasis (K80.20) Active confirmed Vital Signs Heart Rate 76 /min 02/01/2025 Temperature 97.7 degrees Fahrenheit 02/01/2025 Blood pressure diastolic 70 mm Hg 02/01/2025 Height 74 in 02/01/2025 Blood pressure systolic 132 mm Hg 02/01/2025 Weight 206 lbs 02/01/2025 BMI 26.45 kg/m2 02/01/2025 Encounters Encounter Location Date Provider Diagnosis [facility] [address] [place] [employer] [address] 11/28/2024 Provider Migration Essential hypertension I10 and GERD without esophagitis K21.9 [facility] [address] [place], [employer] [address] 03/16/2024 Gregorio Ware Personal history of nicotine dependence Z87.891 ; Essential hypertension I10 and Acquired hypothyroidism E03.9 [facility] [address] [facility] [address] [place], [place] [address] 06/15/2024 Gregorio Ware Essential hypertensi on I10 ; Acquired hypothyroidism E03.9 ; Idiopathic peripheral neuropathy G60.9 ; Immunization(s) administered Z23 ; Personal history of nicotine dependence Z87.891 ; Pulmonary nodule R91.1 and Medicare annual wellness visit, subsequent Z00.00 [facility] [address] [facility] [address] [place], [place] [address] 10/19/2024 Gregorio Ware Chronic pain syndrom e G89.4 ; Benign prostatic hyperplasia with lower urinary tract symptoms, unspecified morphology N40.1 ; Essential hypertension I10 ; Tobacco dependence F17.200 ; GERD without esophagitis K21.9 and Healthcare maintenance Z00.00 [facility] [address] [facility] [address] [place], [place] [address] 02/01/2025 Gregorio Ware Hyperlipemia, idiopathic familial E78.5 ; Acquired hypothyroidism E03.9 ; Essential hypertension I10 ; Benign prostatic hyperplasia with lower urinary tract symptoms, unspecified morphology N40.1 ; Restless leg syndrome G25.81 and Symptomatic cholelithiasis K80.20 [facility] [address] [address] 07/20/2024 Gregorio Choison [facility] [address] [facility] [address] [place] [address] 09/02/2024 Gregorio Besson [facility] [address] [facility] [address] [place], [place] [address] 10/02/2024 Gregorio Besson [facility] [address] [facility] [address] [place], [place] [address] 10/19/2024 Gregorio Ware History of nicotine dependence Z87.891 Assessments Encounter Date Diagnosis (ICD Code) Assessment Notes Treatment Notes Treatment Clinical Notes Section Notes 03/16/2024 Personal history of nicotine dependence (ICD-10 [...] will obtain labs at next visit. 06/15/2024 Essential hypertension (ICD-10 - I10) BP well-controlled in office today on lisinopril 10mg daily. He has some orthostatic symptoms but thinks it is more related to his neuropathy. Will continue lisinopril for now, but if symptoms persist or he develops falls, will plan to reduce lisinopril. UTD on labs. 06/15/2024 Acquired hypothyroidism (ICD-10 - E03.9) UTD on thyroid panel. No change in plans. No worrisome symptoms. 10/19/2024 Chronic pain syndrome (ICD-10 - G89.4) Stable, follows with pain management and has pain pump. 10/19/2024 Benign prostatic hyperplasia with lower urinary tract symptoms, unspecified morphology (ICD-10 - N40.1) stable, doing well with tamsulosin, no complaints. Continue current management. 10/19/2024 History of nicotine dependence (ICD-10 - Z87.891) 02/01/2025 Hyperlipemia, idiopathic familial (ICD-10 - E78.5) 02/01/2025 Acquired hypothyroidism (ICD-10 - E03.9) Clinically euthyroid, check labs. Please note I will review all labs personally 11/28/2024 Essential hypertension (ICD-10 - I10) 02/01/2025 Essential hypertension (ICD-10 - I10) 10/19/2024 Essential hypertension (ICD-10 - I10) BP slightly elevated in clinic today but has been normotensive with systolics in the 120's at home. Continue lisinopril 10 mg daily. 06/15/2024 Idiopathic peripheral neuropathy (ICD-10 - G60.9) Intolerant to PO medications. Has fentanyl pain pump. Recently reduced dose which has resulted in worsening symptoms. Plans to increase dose at next visit. 03/16/2024 Acquired hypothyroidism (ICD-10 - E03.9) - continue with synthroid. 06/15/2024 Immunization(s) administered (ICD-10 - Z23) 10/19/2024 Tobacco dependence (ICD-10 - F17.200) 2-3 ppd, no interest in cessation. Low dose CT due and ordered today. 02/01/2025 Benign prostatic hyperplasia with lower urinary tract symptoms, unspecified morphology (ICD-10 - N40.1) Stable, check labs 02/01/2025 Restless leg syndrome (ICD-10 - G25.81) Sounds he has restless leg. Check ferritin and magnesium along with other labs. Follow-up 1 month, trial of medication if he wishes at that point if we cannot find any metabolic issues 11/28/2024 GERD without esophagitis (ICD-10 - K21.9) 10/19/2024 GERD without esophagitis (ICD-10 - K21.9) Worsening gerd symptoms recently, no dysphagia, no red flag symptoms. Done well with omeprazole in the past. Will start trial of omeprazole and follow up on symptoms at next visit. 06/15/2024 Personal history of nicotine dependence (ICD-10 - Z87.891) Smokes 2-3ppd, not interested in cessation. Declines LDCT screening. Counseled on tobacco cessation for 5 minutes. Discussed the health consequences and risks of continued smoking as well as the health and social benefits of quitting. Patient not interested at this time 10/19/2024 Healthcare maintenance (ICD-10 - Z00.00) Low dose CT due and ordered today. 06/15/2024 Pulmonary nodule (ICD-10 - R91.1) Stable on CT chest in 2021. Declines further screening. No productive cough, hemoptysis, weight loss. 02/01/2025 Symptomatic cholelithiasis (ICD-10 - K80.20) Discussed with patient that surgery referral would be more appropriate, will get ultrasound and then make referral to [facility] surgery at his request. I reviewed ER notes available from emergency department. Reviewed labs, reviewed discharge plan, personally reconciled medication. 06/15/2024 Medicare annual wellness visit, subsequent (ICD-10 [...] Carotids 06/11/2016 Echocardiogram 06/14/2016 Physical Therapy 11/11/2015 Ultrasound : Gallbladder 02/01/2025 MRI : Lumbar Spine with Contrast 021 H-CMP 10/21/2013 H-LIPID PANEL 10/21/2013 H-TSH 10/21/2013 C-BUN 10/13/2020 C-CREATININE 10/13/2020 C-CBC 06/30/2018 C-CMP 06/30/2018 C-LIPID PANEL 06/30/2018 C-VITAMIN B12 01/04/2020 C-DRUG SCREEN 10 PANEL 05/07/2016 CT Scan : Chest, Lung Cancer Screening 0 05/08/2021 THYROID PANEL WITH TSH (7444) 02/01/2025 LIPID PANEL, STANDARD (7600) 02/01/2025 COMPREHENSIVE METABOLIC PANEL (85037) MAGNESIUM (622) 02/01/2025 CBC (INCLUDES DIFF/PLT) (6399) FERRITIN (457) 02/01/2025 PSA, TOTAL (5363) 02/01/2025 Future Test Test Name Order Date C-CBC 01/25/2015 C-CMP 01/25/2015 C-LIPID PANEL 01/25/2015 C-TSH 01/25/2015 C-DRUG SCREEN 12 PANEL 05/07/2017 C-DRUG SCREEN 10 PANEL 07/06/2019 Next Appt Details Provider Name:Gregorio Trujillobenedicto Ware, 03/01/2025 09:45:00 AM, [address], [place], [address], Insurance Providers Payer Name Payer Address Payer Phone Subscriber Number Group Number Insured Name Patient Relationship to Insured Coverage Start Date Coverage End Date [place] [address] [place] [address] [id number] Naun Dave Self - patient is the insured [employer] Medicare Supplement [address] [address] [place], [place] [phone] [id number] Naun Dave Self - patient is the insured [employer] [address] [place] [address] [address] [place] [address] DENNY Dave Naun Self - patient is the insured Medications [...] tendon-lt hand 05/2018 Pain pump insertion 11/2020 Pain pump replacement 11/2024 Hospitalization History Reason Date(Month/Year) chest pains back surgery
--- OUTSIDE RECORDS SUMMARY | 2025-02-02 10:22 | XMS_ITS | Data Portability ---
Author Organization DIANE - NT - April & DANIEL Alfaro ADMIN Address [address] [place] [address] Assessment Encounter Date Assessment Date Assessment LastModified [...] __ __ __ __ __ _ FRANCHESCA: [id number] I have reviewed patient's FRANCHESCA report prior [...] to help better manage the patient's pain. [email or web address] Not available 10/05/2024 11:52:29 12/25/2024 12/25/2024 Patient [...] changed ITTP pump from [employer] to [employer]tr[employer]. [email or web address] Not available 12/25/2024 09:36:22 12/28/2024 12/28/2024 Patient [...] 2024 025 [email or web address] Geoffrey Olivares MD, [address] [facility], [address], [place], [address], 16:26:22 Imaging None recorded. Medication Orders None recorded. Patient TargetsNo targets recorded. Patient Instructions Encounter Date Encounter Id Patient Instructions Last Modified By Organization Details Last Modified Time 07/06/2024 [id number] I have discussed in great detail our [...] __ __ __ __ __ _ FRANCHESCA: [id number] I have reviewed patient's FRANCHESCA report prior to prescribing Schedule II, III, and IV medications that require review by law. Not available 07/06/2024 15:36:31 10/05/2024 [id number] I have discussed in great detail our [...] __ __ __ _ [facility]: [id number] I have reviewed patient's FRANCHESCA report prior to prescribing Schedule II, III, and IV medications that require review by law. [email or web address] Not available 10/05/2024 12:02:41 12/25/2024 [id number] I have discussed in great detail our [...] IV medications that require review by law. [email or web address] Not available 12/25/2024 09:08:18 12/28/2024 [id number] I have discussed in great detail our [...] and Address Organization Details Recorded Time Post-laminec jcaki syndrome 84824149 Active 022 Katiana Orellana null, [place] - [facility] - [place] & [place] 2 16:21:50 Radicular pain 42255297 Active 022 Katiana Orellana null, [place] - [facility] - [facility] & [place] 2 16:22:17 Pain in lower limb 39276453 Active 022 Katiana Wallkins null, [place] - [facility] - [facility] & [place] 2 16:22:33 Myofascial pain 375535891 Active 022 Katiana colvin, DIANE - [facility] - [place] & [place] 2 16:22:51 Nicotine dependence 98220349 Active 022 Katiana colvin, [place] - [facility] - [place] & [place] 2 16:23:23 Spinal stenosis of lumbar region 82980079 Active 023 Katiana colvin, [place] - [facility] - [place] & [place] 3 15:16:21 Problem Notes None recorded. Procedures Surgical History Date Name Laterality Status Provider Name and Address Organization Details Recorded Time 5 PUMP CHANGES completed Herlinda CONTRERAS - [facility] - [place] & [place] 12/25/2024 10:16:12 5 Intrathecal Drug (ITD) Pump Refill completed Tracy CONTRERAS - [facility] - [place] & [place] 10/05/2024 13:14:26 5 PUMP CHANGES completed Katiana CONTRERAS - [facility] - [place] & [place] 10/05/2024 11:59:21 4 Intrathecal Drug (ITD) Pump Refill completed Tracy CONTRERAS - [facility] - [place] & [place] 07/06/2024 11:31:21 4 PUMP CHANGES completed Katiana CONTRERAS - [facility] - [place] & [place] 07/06/2024 15:34:45 4 Intrathecal Drug (ITD) Pump Refill completed Tracy CONTRERAS - [facility] - [place] & [place] 04/07/2024 15:20:34 4 PUMP CHANGES completed Tracy CONTRERAS - [facility] - [place] & [place] 04/07/2024 15:21:50 4 Intrathecal Drug (ITD) Pump Refill completed Katiana CONTRERAS - [facility] - [place] & [place] 01/16/2024 17:05:23 4 PUMP CHANGES completed Katiana CONTRERAS - [facility] - [place] & [place] 01/16/2024 17:06:18 4 Intrathecal Drug (ITD) Pump Refill completed Tracy CONTRERAS - [facility] - [facility] & [place] 10/24/2023 10:38:22 4 PUMP CHANGES completed Carmen CONTRERAS - [facility] - [facility] & [place] 10/24/2023 10:24:27 3 Intrathecal Drug (ITD) Pump Refill completed Tracy CONTRERAS - [facility] - [facility] & [place] 07/25/2023 10:48:04 3 PUMP CHANGES completed Tracy CONTRERAS - [facility] - [facility] & [place] 07/25/2023 10:48:16 3 Intrathecal Drug (ITD) Pump Refill completed Katiana CONTRERAS - [facility] - [place] & [place] 05/02/2023 12:12:50 3 PUMP CHANGES completed Katiana CONTRERAS - [facility] - [facility] & [place] 05/02/2023 12:13:20 3 Intrathecal Drug (ITD) Pump Refill completed Katiana CONTRERAS - [facility] - [facility] & [place] 2023 17:12:00 3 PUMP CHANGES completed Katiana CONTRERAS - [facility] - [facility] & [place] 2023 17:13:34 3 Intrathecal Drug (ITD) Pump Refill completed Preethi Mattsono [place] - [facility] - [facility] & [place] 11/06/2022 16:29:19 3 PUMP CHANGES completed Preethi Keenecuso [place] - [facility] - [facility] & [place] 11/06/2022 16:32:31 2 Intrathecal Drug (ITD) Pump Refill completed Katiana CONTRERAS - [facility] - [facility] & [place] 07/23/2022 16:28:25 2 PUMP CHANGES completed Katiana Wallkins [place] - [facility] - [facility] & [place] 07/23/2022 16:31:34 Imaging Results None recorded. Procedure [...] Address Organization Details Last Updated DateTime 5 60513.2 9 g 97.3 [degF] 100 % 100 % 99 /min 142 mm[Hg] 74 mm[Hg] Angelica Silva [facility] & [place] 5 09:26:25 Date Recorded Body weight Body temperature Oxygen saturation Oxygen saturation in Arterial blood by Pulse oximetry Heart rate Systolic blood pressure Diastolic blood pressure Provider Name and Address Organization Details Last Updated DateTime 5 39000.2 5 g 97.8 [degF] 96 % 96 % 93 /min 140 mm[Hg] 86 mm[Hg] Kait Baez [facility] & [place] 5 08:59:34 Date Recorded Body weight Body temperature Oxygen saturation Oxygen saturation in Arterial blood by Pulse oximetry Heart rate Systolic blood pressure Diastolic blood pressure Provider Name and Address Organization Details Last Updated DateTime 5 31537.2 2 g 97.5 [degF] 97 % 97 % 83 /min 170 mm[Hg] 72 mm[Hg] Angelica CONTRERAS [facility] & [place] 5 13:32:12 Date Recorded Body temperature Oxygen saturation Oxygen saturation in Arterial blood by Pulse oximetry Heart rate Systolic blood pressure Diastolic blood pressure Provider Name and Address Organization Details Last Updated DateTime 4 97.3 [degF] 98 % 98 % 90 /min 118 mm[Hg] 70 mm[Hg] Betty CONTRERAS [facility] & [place] 4 10:09:02 Date Recorded Body weight Body temperature Oxygen saturation Oxygen saturation in Arterial blood by Pulse oximetry Heart rate Systolic blood pressure Diastolic blood pressure Provider Name and Address Organization Details Last Updated DateTime 4 67556.5 6 g 97.9 [degF] 98 % 98 % 90 /min 138 mm[Hg] 66 mm[Hg] Angelica Silva [place] - [facility] & [place] 4 10:24:03 Social History None recorded. Functional Status None recorded. Mental Status None recorded. Family History Nothing Reported. Medical History No medical history recorded. Past Encounters Encounter ID Performer Location Encounter Start Date Encounter Closed Date Diagnosis/Indication Diagnosis SNOMED-CT Code Diagnosis ICD10 Code Diagnosis Note [id number] Geoffrey Olivares MD [facility] [address] [address] 07/23/2022 13:16:10 07/23/2022 14:21:07 Spinal stenosis of lumbar region 06340243 M99.53 Radicular pain 73480526 M54.10 Post-juwan ectomy syndrome 67314706 M96.1 Pain in lower limb 21419 006 M79.606 [id number] Geoffrey Olivares MD [facility] [address] [address] 11/06/2022 12:49:16 11/06/2022 14:20:40 Spinal stenosis of lumbar region 89801771 M99.53 Radicular pain 82693798 M54.10 Post-juwan ectomy syndrome 61605036 M96.1 Pain in lower limb 74466 006 M79.606 [id number] Geoffrey Olivares MD [facility] [address] [address] 2023 12:43:20 2023 13:57:09 Spinal stenosis of lumbar region 31144728 M99.53 Radicular pain 67072256 M54.10 Post-juwan ectomy syndrome 53363663 M96.1 Pain in lower limb 31431 006 M79.606 [id number] Geoffrey Olivares MD [facility] [place] [facility] [address] [facility] [place] [address] 05/02/2023 09:01:09 05/02/2023 10:12:51 Spinal stenosis of lumbar region 34064579 M99.53 Radicular pain 23696854 M54.10 Post-juwan ectomy syndrome 90715492 M96.1 Pain in lower limb 25783 006 M79.606 [id number] Geoffrey Olivares MD [facility] [address] [facility] [address] [facility] [place] [address] 07/25/2023 08:12:04 07/25/2023 08:57:55 Spinal stenosis of lumbar region 91497500 M99.53 Radicular pain 96862556 M54.10 Post-juwan ectomy syndrome 84459846 M96.1 Pain in lower limb 46957 006 M79.606 [id number] Geoffrey Olivares MD [facility] [address] [facility] [address] [place] [place] [address] 10/24/2023 08:43:20 10/24/2023 09:58:19 Spinal stenosis of lumbar region 91524175 M99.53 Radicular pain 15067956 M54.10 Post-juwan ectomy syndrome 50162610 M96.1 Pain in lower limb 00322 006 M79.394 [id number] Geoffrey Olivares MD [facility] [address] [place] [address] 01/16/2024 09:29:24 01/16/2024 10:49:59 Spinal stenosis of lumbar region 08538765 M99.53 Radicular pain 30923247 M54.10 Post-juwan ectomy syndrome 56998538 M96.1 Pain in lower limb 40743 006 M79.616 [id number] Geoffrey Olivares MD [facility] [address] [place] [address] 04/07/2024 09:51:05 04/07/2024 10:40:00 Spinal stenosis of lumbar region 70436303 M99.53 M48.061 Radicular pain 11241855 M54.10 Post-juwan ectomy syndrome 35463939 M96.1 Pain in lower limb 13937 006 M79.643 [id number] Geoffrey Olivares MD [facility] [address] [facility] [address] [place] [address] 07/06/2024 09:59:14 07/06/2024 10:44:24 Post-laminectomy syndrome 06352245 M96.1 - It appears that ITPP therapy is effective, but the patient is experienci ng more low back pain.- In efforts to better manage his pain, I will perform a pump increase today. Pump refill was conducted as scheduled. - UDS obtained today and appropriat e.- The patient will follow up for next pump refill. Spinal michel nosis of lumbar region 73532657 M99.53 M48.061 Pain in lower limb 80063 006 M79.692 [id number] Geoffrey Olivares MD [facility] [address] [facility] [address] [place] [address] 10/05/2024 09:14:14 10/05/2024 10:28:57 Post-laminectomy syndrome 39905031 M96.1 - It appears that ITPP therapy is effective in managing low back pain so I will not make any changes to the pump today. Pump refill was conducted as scheduled. - The patient expresses interest in pump replacemen t with a different company due to lack of support and communicat ion from [employer]. I also have had support issues regarding [employer] and feel that the patient would benefit more in the long-term from changing pump companies. - I will proceed with scheduling a pump replacemen t from [employer] to [employer]. - I will follow up for pump replacemen t. Spinal michel nosis of lumbar region 60231442 M99.53 M48.061 Pain in lower limb 26775 006 M79.733 [id number] Geoffrey Olivares MD [facility] [address] [facility] [address] [place] [address] 12/28/2024 13:17:50 12/28/2024 14:52:33 Post-laminectomy syndrome 83583079 M96.1 - The patient is 1 week [...] check. Spinal michel nosis of lumbar region 33875231 M99.53 M48.061 Pain in lower limb 98125 006 M79.925 [id number] Geoffrey Olivares MD [facility] [address] [place] [address] 12/25/2024 07:47:36 12/25/2024 08:28:32 Post-laminectomy syndrome 66176809 M96.1 - The patient is post op [...] settings. Spinal michel nosis of lumbar region 91348511 M99.53 M48.061 Pain in lower limb 55433 006 M79.606 Health Concerns Section Related Observation LastModified by Organization Detai ls LastModified Time None Recorded Concern Status LastModified by Organization Details LastModified Time None Recorded Advance Directives Directive None Recorded Payers Insurance Date Sequence Insurance Name Policy Number Policy Starr Covered Member ID Starr Member ID Guarantor Name 12/24/2024 1 [place] Naun Dave [id number] Naun Dave 11/26/2024 2 [employer] (MEDICARE SUPPLEMENT) Naun Dave [id number] Naun Dave 11/26/2024 2 [facility] (MEDICARE SUPPLEMENT) Naun Dave [id number] Naun Dave Notes Date Note Type Note [...] non recent imaging Geoffrey Olivares MD [address] [facility], [place], [address], [facility] - [place] & [place] 04/13/2024 15:20:40 4 text/html Mr. Dave was [...] helpfulImaging/Studies: non recent imaging Geoffrey Olivares MD [address] [facility], [place], [address], [facility] - [place] & [place] 07/07/2024 15:43:42 5 text/html Mr. Dave was [...] is unhappy with his current pump company ([employer]) due to lack of support and communication. [...] helpfulImaging/Studies: non recent imaging Geoffrey Olivares MD [address] [facility], [place], [address], [facility] - [place] & [place] 10/06/2024 08:41:29 5 text/html Mr. Dave was [...] helpfulImaging/Studies: non recent imaging Geoffrey Olivares MD [address], [place], [address], [facility] & [place] 12/25/2024 11:38:37 5 text/html Mr. Dave was [...] level today is 6/10. DIMITRIOS SNEED PA-C [address], [place], [address], [facility] & [place] 12/30/2024 07:51:23
--- OUTSIDE RECORDS SUMMARY | 2025-02-02 10:22 | XMS_ITS | Continuity of Care Document ---
Author Organization [facility] Address [address] [place] [address] Assessment Encounter Date Assessment Date Assessment LastModified [...] changed ITTP pump from [employer] to [employer]tr[employer]. [email or web address] Not available 12/25/2024 09:36:22 Plan of Treatment [...] By Organization Details Last Modified Time 12/25/2024 [id number] I have discussed in great detail our [...] that require review by law. Not available 12/25/2024 09:08:18 Reason for Referral None Reported. Problems Name Problem SNOMED Code Status Onset Date Resolution Date Notes Provider Name and Address Organization Details Recorded Time Post-laminec jacki syndrome 77572419 Active 022 Katiana Wall[place] null, [place] - [facility] - [place] & [place] 2 16:21:50 Radicular pain 89639837 Active 022 Katiana Orellana [place], [place] - [facility] - [place] & [place] 2 16:22:17 Pain in lower limb 43659604 Active 022 Katiana [place] [facility] & [place] 2 16:22:33 Myofascial pain 618467233 Active 022 Katiana [place] - [place] & [place] 2 16:22:51 Nicotine dependence 79197995 Active 022 Katiana [place] [facility] - [place] & [place] 2 16:23:23 Spinal stenosis of lumbar region 26168941 Active 023 Katiana O[place], [place] - [facility] - [place] & [place] 3 15:16:21 Problem Notes None recorded. Procedures Surgical History Date Name Laterality Status Provider Name and Address Organization Details Recorded Time 5 PUMP CHANGES completed Herlinda Diaz [place] - [facility] - [place] & [place] 12/25/2024 10:16:12 5 Intrathecal Drug (ITD) Pump Refill completed Tracy Pierre [place] - [facility] - [place] & [place] 10/05/2024 13:14:26 5 PUMP CHANGES completed Katianahaley Orellana [place] - [facility] - [place] & [place] 10/05/2024 11:59:21 4 Intrathecal Drug (ITD) Pump Refill completed Tracy CONTRERAS - [facility] - [place] & [place] 07/06/2024 11:31:21 4 PUMP CHANGES completed Katiana CONTRERAS - [facility] - [place] & [place] 07/06/2024 15:34:45 4 Intrathecal Drug (ITD) Pump Refill completed Tracy CONTRERAS - [facility] - [place] & [place] 04/07/2024 15:20:34 4 PUMP CHANGES completed Tracy CONTRERAS - [facility] - [place] & [place] 04/07/2024 15:21:50 4 Intrathecal Drug (ITD) Pump Refill completed Katiana CONTRERAS - [facility] - [place] & [place] 01/16/2024 17:05:23 4 PUMP CHANGES completed Katiana CONTRERAS - [facility] - [place] & [place] 01/16/2024 17:06:18 4 Intrathecal Drug (ITD) Pump Refill completed Tracy CONTRERAS - [facility] - [place] & [place] 10/24/2023 10:38:22 4 PUMP CHANGES completed Carmen CONTRERAS - [facility] - [place] & [place] 10/24/2023 10:24:27 3 Intrathecal Drug (ITD) Pump Refill completed Tracy CONTRERAS - [facility] - [place] & [place] 07/25/2023 10:48:04 3 PUMP CHANGES completed Tracy CONTRERAS - [facility] - [place] & [place] 07/25/2023 10:48:16 3 Intrathecal Drug (ITD) Pump Refill completed Katiana CONTRERAS - [facility] - [place] & [place] 05/02/2023 12:12:50 3 PUMP CHANGES completed Katiana CONTRERAS - [facility] - [place] & [place] 05/02/2023 12:13:20 3 Intrathecal Drug (ITD) Pump Refill completed Katiana CONTRERAS - [facility] - [place] & [place] 2023 17:12:00 3 PUMP CHANGES completed Katiana CONTRERAS - [facility] - [place] & [place] 2023 17:13:34 3 Intrathecal Drug (ITD) Pump Refill completed Preethi CONTRERAS - LP[facility] - [place] & [place] 11/06/2022 16:29:19 3 PUMP CHANGES completed Preethi CONTRERAS - LP[facility] - [place] & [place] 11/06/2022 16:32:31 2 Intrathecal Drug (ITD) Pump Refill completed Katiana CONTRERAS - [facility] - [place] & [place] 07/23/2022 16:28:25 2 PUMP CHANGES completed Katiana CONTRERAS - [facility] - [place] & [place] 07/23/2022 16:31:34 Imaging Results None recorded. Procedure [...] Address Organization Details Last Updated DateTime 5 55868.2 5 g 97.8 [degF] 96 % 96 % 93 /min 140 mm[Hg] 86 mm[Hg] [facility] & [place] 5 08:59:34 Social History None recorded. Functional Status None recorded. Mental Status None recorded. Family History Nothing Reported. Medical History No medical history recorded. Past Encounters Encounter ID Performer Location Encounter Start Date Encounter Closed Date Diagnosis/Indication Diagnosis SNOMED-CT Code Diagnosis ICD10 Code Diagnosis Note [id number] Geoffrey Olivares MD [facility] [address] [place] [address] 12/25/2024 07:47:36 12/25/2024 08:28:32 Post-laminectomy syndrome 72860503 M96.1 - The patient is post op ITTP pump replacemen t from [employer] and [employer] (12/22/24). - The nurse called the patient [...] settings. Spinal mitzy nosis of lumbar region 47985465 M99.53 M48.061 Pain in lower limb 06879 006 M79.606 Health Concerns Section Related Observation LastModified by Organization Detai ls LastModified Time None Recorded Concern Status LastModified by Organization Details LastModified Time None Recorded Payers Encounter Date Sequence Insurance Name Policy Number Policy Starr Covered Member ID Starr Member ID Guarantor Name 12/25/2024 1 [place] Naun Dave [id number] Naun Dave 12/25/2024 2 [facility] (MEDICARE SUPPLEMENT) Naun Dave [id number] Naun Dave Notes Date Note Type Note [...] helpfulImaging/Studies: non recent imaging Geoffrey Olivares MD [address] [facility], [place], [address], [facility] - [place] & [place] 12/25/2024 11:38:37
--- OUTSIDE RECORDS SUMMARY | 2025-02-02 10:23 | XMS_ITS | Continuity of Care Document ---
Author Organization [facility] Address [address] [place] [address] Assessment Encounter Date Assessment Date Assessment LastModified [...] By Organization Details Last Modified Time 12/28/2024 [id number] I have discussed in great detail our [...] Organization Details Recorded Time Post-laminec jacki syndrome 79625611 Active 022 Katiana Orellana null, [place] [facility] [place] & [place] 2 16:21:50 Radicular pain 60251975 Active 022 Kat[place] [place] 2 16:22:17 Pain in lower limb 88839815 Active 022 Katiana [place] [facility] [place] & [place] 2 16:22:33 Myofascial pain 154179065 Active 022 Katiana [place] [facility] [place] 2 16:22:51 Nicotine dependence 71245185 Active 022 Katiana [place] [facility] [place] 2 16:23:23 Spinal stenosis of lumbar region 21614101 Active 023 Kat[place] [facility] [place] & [place] 3 15:16:21 Problem Notes None recorded. Procedures Surgical History Date Name Laterality Status Provider Name and Address Organization Details Recorded Time 5 PUMP CHANGES completed Herlinda Diaz [place] [place] & [place] 12/25/2024 10:16:12 5 Intrathecal Drug (ITD) Pump Refill completed Tracy CONTRERAS - [facility] - [place] & [place] 10/05/2024 13:14:26 5 PUMP CHANGES completed Katiana CONTRERAS - [facility] - [place] & [place] 10/05/2024 11:59:21 4 Intrathecal Drug (ITD) Pump Refill completed Tracy Tateantoinette [place] - [facility] - [place] & [place] 07/06/2024 11:31:21 4 PUMP CHANGES completed Katiana Orellana [place] [facility] [place] 07/06/2024 15:34:45 4 Intrathecal Drug (ITD) Pump Refill completed Tracy Pierre [place] - [facility] - [place] & [place] 04/07/2024 15:20:34 4 PUMP CHANGES completed Tracy CONTRERAS - [facility] - [place] & [place] 04/07/2024 15:21:50 4 Intrathecal Drug (ITD) Pump Refill completed Katiana CONTRERAS - [facility] - [place] & [place] 01/16/2024 17:05:23 4 PUMP CHANGES completed Katiana CONTRERAS - [facility] - [place] & [place] 01/16/2024 17:06:18 4 Intrathecal Drug (ITD) Pump Refill completed Tracy CONTRERAS - [facility] - [place] & [place] 10/24/2023 10:38:22 4 PUMP CHANGES completed Carmen CONTRERAS - [facility] - [place] & [place] 10/24/2023 10:24:27 3 Intrathecal Drug (ITD) Pump Refill completed Tracy CONTR[facility]AS [facility] [place] 07/25/2023 10:48:04 3 PUMP CHANGES completed Tracy CONTRERAS - [facility] - [place] & [place] 07/25/2023 10:48:16 3 Intrathecal Drug (ITD) Pump Refill completed [facility]AS [facility] & [place] 05/02/2023 12:12:50 3 PUMP CHANGES completed Katiana CONTRERAS - [facility] - [place] & [place] 05/02/2023 12:13:20 3 Intrathecal Drug (ITD) Pump Refill completed Katiana CONTRERAS - [facility] & [place] 2023 17:12:00 3 PUMP CHANGES completed Katiana CONTRERAS - [facility] - [place] & [place] 2023 17:13:34 3 Intrathecal Drug (ITD) Pump Refill completed Preethi Mattsono [place] - [facility] - [place] & [place] 11/06/2022 16:29:19 3 PUMP CHANGES completed Preethi Mattsono [place] - [facility] [place] & [place] 11/06/2022 16:32:31 2 Intrathecal Drug (ITD) Pump Refill completed Katiana CONTRERAS - [facility] & [place] 07/23/2022 16:28:25 2 PUMP CHANGES completed Katiana CONTRERAS - [facility] 07/23/2022 16:31:34 Imaging Results None recorded. Procedure [...] Address Organization Details Last Updated DateTime 5 03304.2 2 g 97.5 [degF] 97 % 97 % 83 /min 170 mm[Hg] 72 mm[Hg] Angelica Silva [facility] & [place] 5 13:32:12 Social History None recorded. Functional Status None recorded. Mental Status None recorded. Family History Nothing Reported. Medical History No medical history recorded. Past Encounters Encounter ID Performer Location Encounter Start Date Encounter Closed Date Diagnosis/Indication Diagnosis SNOMED-CT Code Diagnosis ICD10 Code Diagnosis Note [id number] Geoffrey Olivares MD [facility] [address] [place] [address] 12/28/2024 13:17:50 12/28/2024 14:52:33 Post-laminectomy syndrome 84637966 M96.1 - The patient is 1 week S/P intratheca l pain pump implant from [employer] to [employer]. on 12/22/24.- Patient states his [...] check. Spinal mitzy nosis of lumbar region 09115563 M99.53 M48.061 Pain in lower limb 03584 006 M79.743 [id number] Geoffrey Olivares MD [facility] [address] [place] [address] 12/25/2024 07:47:36 12/25/2024 08:28:32 Post-laminectomy syndrome 14154478 M96.1 - The patient is post op ITTP pump replacemen t from [employer] and [employer] (12/22/24). - The nurse called the patient [...] settings. Spinal mitzy nosis of lumbar region 69114152 M99.53 M48.061 Pain in lower limb 97773 006 M79.606 Health Concerns Section Related Observation LastModified by Organization Detai ls LastModified Time None Recorded Concern Status LastModified by Organization Details LastModified Time None Recorded Payers Encounter Date Sequence Insurance Name Policy Number Policy Starr Covered Member ID Starr Member ID Guarantor Name 12/28/2024 1 [place] Naun Dave [id number] Naun Dave 12/28/2024 2 [facility] (MEDICARE SUPPLEMENT) Naun Dave [id number] Naun Dave Notes Date Note Type Note [...] level today is 6/10. DIMITRIOS SNEED PA-C [address], [place], [address], [facility] - [place] & [place] 12/30/2024 07:51:23
== END 2025-02-02 23:59 | disposition home or self-care (01) ==
LOC: RAD 10:18
PROVIDERS: PCP Internal Medicine Adolescent Medicine; Visit Provider Internal Medicine Adolescent Medicine
DX: K80.21 Calculus of gallbladder without cholecystitis with obstruction (principal); K76.0 Fatty (change of) liver, not elsewhere classified; K82.8 Other specified diseases of gallbladder
CPT/HCPCS: 76705

== ENCOUNTER 2025-02-05 09:42 | Outpatient (CLI) | payer MEDICARE, OTHER, SELFPAY ==
--- OUTSIDE RECORDS SUMMARY | 2024-11-28 17:30 | XMS_ITS ---
Author Organization [facility] D [facility] Address [address] [place] [address] Care Team Providers Care Siding Installer Name Role Phone Gregorio Ware Primary Care Provider Migration, Provider Unavailable Unavailable Allergies Allergen (clinical drug ingredient) Drug/Non Drug Allergy documented on EMR Reaction Allergy Type Onset Date Status duloxetine Cymbalta confusion Drug Allergy Active pregabalin Lyrica confusion Drug Allergy Active gemfibrozil Lopid increase in live r enzymes Drug Allergy Active gabapentin Neurontin Unknown Drug Allergy Active REASON FOR VISIT [facility] Conversion Encounter Medications Medication SIG (Take, [...] *Please review and pick correct strength[facility]. If intended option is not shown, discontinue and re-order from Quick Search* Active fentaNYL pain pump *Pleas e review and pick correct strength-formulation from Medispan options. If intended option is not shown, discontinue and re-order from Quick Search* Active Encounters Encounter Location Date Provider Diagnosis [facility] [address] [facility] [address] [place] [address] 11/28/2024 Provider Migration Essential hypertension I10 and [...] check* Next Appt Details Provider Name:Gregorio Ware, 03/01/2025 09:45:00 AM, [address] [facility] [address] [facility], [address], [place], [address], Progress Notes * Naun DAVE LDOB:1950 (75 yo M)Acc No.[id number]:11/28/2024 Patient: Cecelia VLADIMIR Naun L Provider: Jackson Perry :1950 A ge:74 Y S ex:Male Date:11/28/2024 Address[address] [id number] Pcp:Gregorio Ware Subjective: * Chief Complaints: * [...] interaction check*. * * Electronic signature of Prov marvin Migration on 02/05/2025 at 09:48 AM EDT Sign off status: Pending * Provider: Jackson santiago Migration Date: 11/28/2024 Generated for Abby toure/Veronica/Spenser on: 02/05/2025 09:48 AM EDT
--- OUTSIDE RECORDS SUMMARY | 2025-02-01 05:15 | XMS_ITS ---
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 Name Role Phone Gregorio Ware Primary Care Provider [phone] Allergies Allergen (clinical drug ingredient) Drug/Non Drug Allergy documented on EMR Reaction Allergy Type Onset Date Status duloxetine Cymbalta confusion Drug Allergy Active pregabalin Lyrica confusion Drug Allergy Active gemfibrozil Lopid increase in live r enzymes Drug Allergy Active gabapentin Neurontin Unknown Drug Allergy Active Results Component Value Reference Range Notes THYROID PANEL WITH TSH (4644 ) Reviewed date:02/03/2025 10:45:52 AM Interpretation: Performing Lab:СЕРГЕЙ [facility] [id number] [employer], [id number] Colt Ng Notes/Report: NON-FASTING; NON-FASTING; NON-FASTING T3 UPTAKE 38 22-35 % T4 (THYROXINE), TOTAL 7.2 4.9-10.5 mcg/dL FREE T4 INDEX (T7) 2.7 1.4-3.8 TSH 0.61 0.40-4.50 mIU/L LIPID PANEL, STANDARD (1620) Reviewed date:02/03/2025 10:45:52 AM Interpretation: Performing Lab:СЕРГЕЙ [facility] [id number] [employer], [id number] Colt Ng Notes/Report: NON-FASTING; NON-FASTING; NON-FASTING CHOLESTEROL, TOTAL 107 <200 mg/dL HDL CHOLESTEROL 34 > OR = 40 mg/dL TRIGLYCERIDES 190 <150 mg/dL LDL-CHOLESTEROL 47 Reference range: <100 Desirable range <100 mg/dL for primary prevention; <70 mg/dL for patients with CHD or diabetic patients with > or = 2 CHD risk factors. LDL-C is now calculated using the Pat calculation, which is a validated novel method providing better accuracy than the Friedewald equation in the estimation of LDL-C. Bill SS et al. CATHIE. 2013;310(15): 6633-1954 (http://education.Kidzloop.iMER/faq/UHZ009) CHOL/HDLC RATIO 3.1 <5.0 (calc) NON HDL CHOLESTEROL 73 <130 mg/dL (calc) For patients with diabetes plus 1 major ASCVD risk factor, treating to a non-HDL-C goal of <100 mg/dL (LDL-C of <70 mg/dL) is considered a therapeutic option. COMPREHENSIVE METABOLIC PANE Petros (08237) Reviewed date:02/03/2025 10:45:53 AM Interpretation: Performing Lab:СЕРГЕЙ, [facility] [id number] [facility] [place] [id number] Colt Ng Notes/Report: NON-FASTING; NON-FASTING; NON-FASTING GLUCOSE 112 65-99 mg/dL Fasting reference interval For someone without known diabetes, a glucose value between 100 and 125 mg/dL is consistent with prediabetes and should be confirmed with a follow-up test. UREA NITROGEN (BUN) 10 7-25 mg/dL CREATININE 1.41 0.70-1.28 mg/dL EGFR 52 > OR = 60 mL/min/1.73m2 BUN/CREATININE RATIO 7 6-22 (calc) SODIUM 138 135-146 mmol/L POTASSIUM 4.3 3.5-5.3 mmol/L CHLORIDE 100 98-110 mmol/L CARBON DIOXIDE 27 20-32 mmol/L CALCIUM 8.9 8.6-10.3 mg/dL PROTEIN, TOTAL 7.1 6.1-8.1 g/dL ALBUMIN 4.4 3.6-5.1 g/dL GLOBULIN 2.7 1.9-3.7 g/dL (calc) ALBUMIN/GLOBULIN RATIO 1.6 1.0-2.5 (calc) BILIRUBIN, TOTAL 0.5 0.2-1.2 mg/dL ALKALINE PHOSPHATASE 32 35-144 U/L AST 25 10-35 U/L ALT 33 9-46 U/L MAGNESIUM (622) Reviewed date:02/03/2025 10:45:53 AM Interpretation: Performing Lab:СЕРГЕЙ, [facility] [address], KimengiIjnxPW[address] Colt Ng Notes/Report: NON-FASTING; NON-FASTING; NON-FASTING MAGNESIUM 2.3 1.5-2.5 mg/dL CBC (INCLUDES DIFF/PLT) (639 9) Reviewed date:02/03/2025 10:45:53 AM Interpretation: Performing Lab:СЕРГЕЙ, [facility], KimengiDcxkWE[address] Colt Ng Notes/Report: NON-FASTING; NON-FASTING; NON-FASTING WHITE [...] MPV 10.1 7.5-12.5 fL ABSOLUTE NEUTROPHILS [phone] cells/uL ABSOLUTE LYMPHOCYTES 2369 051-5189 cells/uL ABSOLUTE MONOCYTES 281 200-950 cells/uL ABSOLUTE EOSINOPHILS 78 15-500 cells/uL ABSOLUTE BASOPHILS 41 0-200 cells/uL NEUTROPHILS 67.7 LYMPHOCYTES 23.6 MONOCYTES 6.1 EOSINOPHILS 1.7 BASOPHILS 0.9 FERRITIN (457) Reviewed date:02/03/2025 10:45:53 AM Interpretation: Performing Lab:СЕРГЕЙ, [facility] [address], LearnStreetWgktYF[address] Colt Ng Notes/Report: NON-FASTING; NON-FASTING; NON-FASTING FERRITIN 116 24-380 ng/mL PSA, TOTAL (5363) Reviewed date:02/03/2025 10:45:53 AM Interpretation: Performing Lab:CB, [facility] [id number] [facility] [place] MacdonaldFoceWL[address] Colt Ng Notes/Report: NON-FASTING; NON-FASTING; NON-FASTING PSA, TOTAL 1.17 [...] of the presence or absence of disease. Ultrasound : Gallbladder Reviewed date:02/04/2025 11:03:23 AM Interpretation: Performing Lab: Notes/Report: Reason For Referral Reason Gallbladder ultrasou nd and appointment with Dr. Izquierdo Diagnosis 1 Symptomatic cholelit hiasis (K80.20) Referral Organization [facility] Referring Provider First Name Gregorio Referring Provider Last Name Chaz Referring Provider Speciality Internal M edicine Referred Organization [facility] Referred Address [address] [place] [id number], Referred Provider Specialty General Surg augustine General Notes Jennifer Ferrer 2024 10:13:27 AM >sent to [facility] to scheduled u/S Referral Priority Routine [...] Problem Status W/U Status Risk Notes Problem [id number] Restless leg syndrome (G25.81) Active confirmed Problem [id number] Symptomatic cholelithiasis (K80.20) Active confirmed Vital Signs Temperature 97.7 degrees Fahrenheit 02/02/20 25 Blood pressure systolic 132 mm Hg 02/02/20 25 Blood pressure diastolic 70 mm Hg 025 Heart Rate 76 /min 02/01/2025 Height 74 in 02/01/2025 Weight 206 lbs 02/01/2025 BMI 26.45 kg/m2 02/01/2025 Encounters Encounter Location Date Provider Diagnosis [facility] [address] [facility] [address] [place] [address] 02/01/2025 Gregorio Ware Hyperlipemia, idiopathic familial E78.5 [...] get ultrasound and then make referral to [facility] surgery at his request. I reviewed ER [...] get ultrasound and then make referral to [facility] surgery at his request. Referrals Referral Date Details 02/01/2025 02/01/2025, Rajiv adan ultrasound and appointment with Dr. Izquierdo, [address] [facility] [address] [place], [address], Next Appt Details Follow Up: prn,4 Weeks, Reas on: Provider Name:Gregorio Ware, 03/01/2025 09:45:00 AM, [address] [facility] [address] [facility], [address], [place], [address], Progress Notes * Naun DAVE LDOB:1950 (75 yo M)Acc No.[id number]:02/01/2025 Progress Notes Patient: Naun CORNEJO Petros Provider: Yumiko Ware MD :1950 A ge:75 Y S ex:Male Date:02/01/2025 Address:[place], [id number] Subjective: * Chief Complaints: * 1 . [...] *Please review and pick correct strength-formulation from [email or web address].frspan options. If intended option is not shown, [...] ymptomatic cholelithiasis - K80.20 Plan: * Treatment: Value Reference Range T 3 UPTAKE 38 H 22-35 - % * T 4 (THYROXINE), TOTAL 7.2 4.9-10.5 - mcg/dL * F REE T4 INDEX (T7) 2.7 1.4-3.8 - * T SH 0.61 0.40-4.50 - mIU/L * Nicole Trujillo 02/03/2025 10: 45:37 AM EDT > pt informedThis lab was reviewed by Nicole Trujillo on 02/03/2025 at 10:45 AM EDT ?LAB: LIPID PANEL, STANDARD (7600)* Value Reference Range T RIGLYCERIDES 190 H <150 - mg/dL * C HOLESTEROL, TOTAL 107 <200 - mg/dL * H DL CHOLESTEROL 34 L > OR = 40 - mg/dL * L DL-CHOLESTEROL 47 - mg/dL (calc) * C HOL/HDLC RATIO 3.1 <5.0 - (calc) * N ON HDL CHOLESTEROL 73 <130 - mg/dL (calc) * Nicole Trujillo 02/03/2025 10: 45:37 AM EDT > pt informedThis lab was reviewed by Nicole Trujillo on 02/03/2025 at 10:45 AM EDT ?LAB: COMPREHENSIVE METABOLIC PANEL (20431)* Value Reference Range G LUCOSE 112 H 65-99 - mg/dL * U BLANCA NITROGEN (BUN) 10 7-25 - mg/dL * C REATININE 1.41 H 0.70-1.28 - mg/dL * B UN/CREATININE RATIO 7 6-22 - (calc) * S ODIUM 138 135-146 - mmol/L * P OTASSIUM 4.3 3.5-5.3 - mmol/L * C HLORIDE 100 98-110 - mmol/L * C ARBON DIOXIDE 27 20-32 - mmol/L * C ALCIUM 8.9 8.6-10.3 - mg/dL * P ROTEIN, TOTAL 7.1 6.1-8.1 - g/dL * A LBUMIN 4.4 3.6-5.1 - g/dL * G LOBULIN 2.7 1.9-3.7 - g/dL (calc ) * A LBUMIN/GLOBULIN RATIO 1.6 1.0-2.5 - (calc) * B ILIRUBIN, TOTAL 0.5 0.2-1.2 - mg/dL * A LKALINE PHOSPHATASE 32 L 35-144 - U/L * A ST 25 10-35 - U/L * A LT 33 9-46 - U/L * E GFR 52 L > OR = 60 - mL/min/1 .73m2 * Nicole Trujillo 02/03/2025 10: 45:37 AM EDT > pt informedThis lab was reviewed by Nicole Trujillo on 02/03/2025 at 10:45 AM EDT ?LAB: PSA, TOTAL (5363)* Value Reference Range P SA, TOTAL 1.17 < OR = 4.00 - ng/mL * Nicole Trujillo 02/03/2025 10: 45:37 AM EDT > pt informedThis lab was reviewed by Nicole Trujillo on 02/03/2025 at 10:45 AM EDT 2.?Acquired hypothyroidism?LAB: THYROID PANEL WITH TSH (7444)* Value Reference Range T 3 UPTAKE 38 H 22-35 - % * T 4 (THYROXINE), TOTAL 7.2 4.9-10.5 - mcg/dL * F REE T4 INDEX (T7) 2.7 1.4-3.8 - * T SH 0.61 0.40-4.50 - mIU/L * Nicole Trujillo 02/03/2025 10: 45:37 AM EDT > pt informedThis lab was reviewed by Nicole Trujillo on 02/03/2025 at 10:45 AM EDT ?LAB: LIPID PANEL, STANDARD (7600)* Value Reference Range T RIGLYCERIDES 190 H <150 - mg/dL * C HOLESTEROL, TOTAL 107 <200 - mg/dL * H DL CHOLESTEROL 34 L > OR = 40 - mg/dL * L DL-CHOLESTEROL 47 - mg/dL (calc) * C HOL/HDLC RATIO 3.1 <5.0 - (calc) * N ON HDL CHOLESTEROL 73 <130 - mg/dL (calc) * Nicole Trujillo 02/03/2025 10: 45:37 AM EDT > pt informedThis lab was reviewed by Nicole Trujillo on 02/03/2025 at 10:45 AM EDT ?LAB: COMPREHENSIVE METABOLIC PANEL (17949)* Value Reference Range G LUCOSE 112 H 65-99 - mg/dL * U BLANCA NITROGEN (BUN) 10 7-25 - mg/dL * C REATININE 1.41 H 0.70-1.28 - mg/dL * B UN/CREATININE RATIO 7 6-22 - (calc) * S ODIUM 138 135-146 - mmol/L * P OTASSIUM 4.3 3.5-5.3 - mmol/L * C HLORIDE 100 98-110 - mmol/L * C ARBON DIOXIDE 27 20-32 - mmol/L * C ALCIUM 8.9 8.6-10.3 - mg/dL * P ROTEIN, TOTAL 7.1 6.1-8.1 - g/dL * A LBUMIN 4.4 3.6-5.1 - g/dL * G LOBULIN 2.7 1.9-3.7 - g/dL (calc ) * A LBUMIN/GLOBULIN RATIO 1.6 1.0-2.5 - (calc) * B ILIRUBIN, TOTAL 0.5 0.2-1.2 - mg/dL * A LKALINE PHOSPHATASE 32 L 35-144 - U/L * A ST 25 10-35 - U/L * A LT 33 9-46 - U/L * E GFR 52 L > OR = 60 - mL/min/1 .73m2 * Nicole Trujillo 02/03/2025 10: 45:37 AM EDT > pt informedThis lab was reviewed by Nicole Trujillo on 02/03/2025 at 10:45 AM EDT ?LAB: PSA, TOTAL (5363)* Value Reference Range P SA, TOTAL 1.17 < OR = 4.00 - ng/mL * Nicole Trujillo 02/03/2025 10: 45:37 AM EDT > pt informedThis lab was reviewed by Nicole Trujillo on 02/03/2025 at 10:45 AM EDT Notes: Clinically euthyroid, check labs. Please note I will review all labs personally??3.?Benign prostatic hyperplasia with lower urinary tract symptoms, unspecified morphology?LAB: COMPREHENSIVE METABOLIC PANEL (02666)* Value Reference Range G LUCOSE 112 H 65-99 - mg/dL * U BLANCA NITROGEN (BUN) 10 7-25 - mg/dL * C REATININE 1.41 H 0.70-1.28 - mg/dL * B UN/CREATININE RATIO 7 6-22 - (calc) * S ODIUM 138 135-146 - mmol/L * P OTASSIUM 4.3 3.5-5.3 - mmol/L * C HLORIDE 100 98-110 - mmol/L * C ARBON DIOXIDE 27 20-32 - mmol/L * C ALCIUM 8.9 8.6-10.3 - mg/dL * P ROTEIN, TOTAL 7.1 6.1-8.1 - g/dL * A LBUMIN 4.4 3.6-5.1 - g/dL * G LOBULIN 2.7 1.9-3.7 - g/dL (calc ) * A LBUMIN/GLOBULIN RATIO 1.6 1.0-2.5 - (calc) * B ILIRUBIN, TOTAL 0.5 0.2-1.2 - mg/dL * A LKALINE PHOSPHATASE 32 L 35-144 - U/L * A ST 25 10-35 - U/L * A LT 33 9-46 - U/L * E GFR 52 L > OR = 60 - mL/min/1 .73m2 * Nicole Trujillo 02/03/2025 10: 45:37 AM EDT > pt informedThis lab was reviewed by Nicole Trujillo on 02/03/2025 at 10:45 AM EDT ?LAB: PSA, TOTAL (5363)* Value Reference Range P SA, TOTAL 1.17 < OR = 4.00 - ng/mL * Nicole Trujillo 02/03/2025 10: 45:37 AM EDT > pt informedThis lab was reviewed by Nicole Trujillo on 02/03/2025 at 10:45 AM EDT Notes: Stable, check labs??4.?Restless leg syndrome?LAB: MAGNESIUM (622)* Value Reference Range M AGNESIUM 2.3 1.5-2.5 - mg/dL * Nicole Trujillo 02/03/2025 10: 45:37 AM EDT > pt informedThis lab was reviewed by Nicole Trujillo on 02/03/2025 at 10:45 AM EDT ?LAB: CBC (INCLUDES DIFF/PLT) (3324)* Value Reference Range W MATEUSZ BLOOD CELL COUNT 4.6 3.8-10.8 - Thousan d/uL * R ED BLOOD CELL COUNT 4.02 L 4.20-5.80 - Million/ uL * H EMOGLOBIN 13.4 13.2-17.1 - g/dL * H EMATOCRIT 40.2 38.5-50.0 - % * M CV 100.0 80.0-100.0 - fL * M CH 33.3 H 27.0-33.0 - pg * M CHC 33.3 32.0-36.0 - g/dL * R DW 13.1 11.0-15.0 - % * P LATELET COUNT 170 140-400 - Thousand/u L * N EUTROPHILS 67.7 - % * A BSOLUTE NEUTROPHILS 3114 2084-2392 - cells/uL * L YMPHOCYTES 23.6 - % * A BSOLUTE LYMPHOCYTES 1195 381-5678 - cells/uL * M ONOCYTES 6.1 - % * A BSOLUTE MONOCYTES 281 200-950 - cells/uL * E OSINOPHILS 1.7 - % * A BSOLUTE EOSINOPHILS 78 15-500 - cells/uL * B ASOPHILS 0.9 - % * A BSOLUTE BASOPHILS 41 0-200 - cells/uL * M PV 10.1 7.5-12.5 - fL * Nicole Trujillo 02/03/2025 10: 45:37 AM EDT > pt informedThis lab was reviewed by Nicole Trujillo on 02/03/2025 at 10:45 AM EDT ?LAB: FERRITIN (457)* Value Reference Range F ERRITIN 116 24-380 - ng/mL * Nicole Trujillo 02/03/2025 10: 45:37 AM EDT > pt informedThis lab was reviewed by Nicole Trujillo on 02/03/2025 at 10:45 AM EDT Notes: Sounds he has restless leg. Check ferritin and magnesium along with other labs. Follow-up 1 month, trial of medication if he wishes at that point if we cannot find any metabolic issues??5.?Symptomatic cholelithiasis?Imaging: Ultrasound : Gallbladder* Jennifer Ferrer 02/01/2025 09: 38:39 AM EDT > no auth Nicole Cardenas 02/04/2025 10:00:19 AM EDT >This DI was reviewed by Jennifer Ferrer on 02/04/2025 at 11:03 AM EDT * Notes: Discussed with patient that surgery referral would be more appropriate, will get ultrasound and then make referral to [facility] surgery at his request.?? Clinical Notes: I [...] true * Provider: Yumiko Ware MD Date: 02/01/2025 Generated for Printi ng/Faxing/eTransmitting on: 0 02/05/2025 09:48 AM EDT History and Physical Notes * [...]
--- OUTSIDE RECORDS SUMMARY | 2025-02-05 09:48 | XMS_ITS | Data Portability ---
Author Organization [facility] - [facility] - [facility] Address [address] [place] [address] Assessment Encounter Date Assessment Date Assessment LastModified [...] __ __ __ __ __ _ FRANCHESCA: [id number] I have reviewed patient's FRANCHESCA report prior [...] to help better manage the patient's pain. [email or web address] Not available 10/05/2024 11:52:29 12/25/2024 12/25/2024 Patient [...] changed ITTP pump from [employer] to [employer]. [email or web address] Not available 12/25/2024 09:36:22 12/28/2024 12/28/2024 Patient [...] [email or web address] Geoffrey Olivares MD, [address] [facility], [place], [address], 16:26:22 Imaging None recorded. Medication Orders None recorded. Patient TargetsNo targets recorded. Patient Instructions Encounter Date Encounter Id Patient Instructions Last Modified By Organization Details Last Modified Time 07/06/2024 [id number] I have discussed in great detail our [...] __ __ __ __ __ _ FRANCHESCA: [id number] I have reviewed patient's FRANCHESCA report prior to prescribing Schedule II, III, and IV medications that require review by law. [email or web address] Not available 07/06/2024 15:36:31 10/05/2024 [id number] I have discussed in great detail our [...] __ __ __ __ __ __ _ [facility]: [id number] I have reviewed patient's FRANCHESCA report prior to prescribing Schedule II, III, and IV medications that require review by law. [email or web address] Not available 10/05/2024 12:02:41 12/25/2024 [id number] I have discussed in great detail our [...] IV medications that require review by law. [email or web address] Not available 12/25/2024 09:08:18 12/28/2024 [id number] I have discussed in great detail our [...] Organization Details Recorded Time Post-laminec jacki syndrome 68381909 Active 022 Katiana O[place] null, [place] - [facility] - [place] & [place] 2 16:21:50 Radicular pain 53499661 Active 022 Kat[place] [facility] & [place] 2 16:22:17 Pain in lower limb 77965482 Active 022 Katiana [place] null, [place] - [facility] - [facility] & [place] 2 16:22:33 Myofascial pain 960814639 Active 022 Katiana colvin, DIANE - [facility] - [place] & [place] 2 16:22:51 Nicotine dependence 44094593 Active 022 Kat[place] [facility] & [place] 2 16:23:23 Spinal stenosis of lumbar region 75124200 Active 023 [place] [...] Refill completed Tracy CONTRERAS - [facility] - [facility] & [place] 10/24/2023 10:38:22 4 PUMP CHANGES completed Carmen CONTRERAS - [facility] & [place] 10/24/2023 10:24:27 3 Intrathecal Drug (ITD) Pump Refill completed Tracy CONTRERAS - [facility] - [facility] & [place] 07/25/2023 10:48:04 3 PUMP CHANGES completed Tracy CONTRERAS - [facility] & [place] 07/25/2023 10:48:16 3 Intrathecal Drug (ITD) Pump Refill completed Katiana CONTRERAS - [facility] - [place] & [place] 05/02/2023 12:12:50 3 PUMP CHANGES completed Katiana CONTRERAS - [facility] - [facility] & [place] 05/02/2023 12:13:20 3 Intrathecal Drug (ITD) Pump Refill completed Katiana CONTRERAS - [facility] - [facility] & [place] 2023 17:12:00 3 PUMP CHANGES completed Katiana CONTRERAS - [facility] - [facility] & [place] 2023 17:13:34 3 Intrathecal Drug (ITD) Pump Refill completed Preethi Mattsono [place] - [facility] - [facility] & [place] 11/06/2022 16:29:19 3 PUMP CHANGES completed Preethi Keenecuso [place] - [facility] - [facility] & [place] 11/06/2022 16:32:31 2 Intrathecal Drug (ITD) Pump Refill completed Katiana CONTRERAS - [facility] - [facility] & [place] 07/23/2022 16:28:25 2 PUMP CHANGES completed Katiana Wallkins [place] - [facility] - [facility] & [place] 07/23/2022 16:31:34 Imaging Results None [...] Address Organization Details Last Updated DateTime 5 24545.2 9 g 97.3 [degF] 100 % 100 % 99 /min 142 mm[Hg] 74 mm[Hg] Angelica Silva [facility] & [place] 5 09:26:25 Date Recorded Body weight Body temperature Oxygen saturation Oxygen saturation in Arterial blood by Pulse oximetry Heart rate Systolic blood pressure Diastolic blood pressure Provider Name and Address Organization Details Last Updated DateTime 5 70558.2 5 g 97.8 [degF] 96 % 96 % 93 /min 140 mm[Hg] 86 mm[Hg] Kait Baez [facility] & [place] 5 08:59:34 Date Recorded Body weight Body temperature Oxygen saturation Oxygen saturation in Arterial blood by Pulse oximetry Heart rate Systolic blood pressure Diastolic blood pressure Provider Name and Address Organization Details Last Updated DateTime 5 65150.2 2 g 97.5 [degF] 97 % 97 % 83 /min 170 mm[Hg] 72 mm[Hg] Angelica CONTRERAS [facility] & [place] 5 13:32:12 Date Recorded Body temperature Oxygen saturation Oxygen saturation in Arterial blood by Pulse oximetry Heart rate Systolic blood pressure Diastolic blood pressure Provider Name and Address Organization Details Last Updated DateTime 4 97.3 [degF] 98 % 98 % 90 /min 118 mm[Hg] 70 mm[Hg] Betty CONTRERAS [facility] & [place] 4 10:09:02 Date Recorded Body weight Body temperature Oxygen saturation Oxygen saturation in Arterial blood by Pulse oximetry Heart rate Systolic blood pressure Diastolic blood pressure Provider Name and Address Organization Details Last Updated DateTime 4 29651.5 6 g 97.9 [degF] 98 % 98 % 90 /min 138 mm[Hg] 66 mm[Hg] Angelica Silva [place] - [facility] & [place] 4 10:24:03 Social History None recorded. Functional Status None recorded. Mental Status None recorded. Family History Nothing Reported. Medical History No medical history recorded. Past Encounters Encounter ID Performer Location Encounter Start Date Encounter Closed Date Diagnosis/Indication Diagnosis SNOMED-CT Code Diagnosis ICD10 Code Diagnosis Note [id number] Geoffrey Olivares MD [facility] [address] [address] 07/23/2022 13:16:10 07/23/2022 14:21:07 Spinal stenosis of lumbar region 27001782 M99.53 Radicular pain 57508531 M54.10 Post-juwan ectomy syndrome 91807529 M96.1 Pain in lower limb 19063 006 M79.606 [id number] Geoffrey Olivares MD [facility] [address] [address] 11/06/2022 12:49:16 11/06/2022 14:20:40 Spinal stenosis of lumbar region 08687435 M99.53 Radicular pain 61870855 M54.10 Post-juwan ectomy syndrome 59197310 M96.1 Pain in lower limb 19704 006 M79.606 [id number] Geoffrey Olivares MD [facility] [address] [address] 2023 12:43:20 2023 13:57:09 Spinal stenosis of lumbar region 67822269 M99.53 Radicular pain 48807187 M54.10 Post-juwan ectomy syndrome 25207405 M96.1 Pain in lower limb 49538 006 M79.606 [id number] Geoffrey Olivares MD [facility] [place] [facility] [address] [facility] [place] [address] 05/02/2023 09:01:09 05/02/2023 10:12:51 Spinal stenosis of lumbar region 49342939 M99.53 Radicular pain 34113261 M54.10 Post-juwan ectomy syndrome 13941259 M96.1 Pain in lower limb 53604 006 M79.606 [id number] Geoffrey Olivares MD [facility] [address] [facility] [address] [place] [place] [address] 07/25/2023 08:12:04 07/25/2023 08:57:55 Spinal stenosis of lumbar region 62646746 M99.53 Radicular pain 06507065 M54.10 Post-juwan ectomy syndrome 85443995 M96.1 Pain in lower limb 20122 006 M79.606 [id number] Geoffrey Olivares MD [facility] [address] [facility] [address] [place] [address] 10/24/2023 08:43:20 10/24/2023 09:58:19 Spinal stenosis of lumbar region 44426179 M99.53 Radicular pain 37818430 M54.10 Post-juwan ectomy syndrome 19465992 M96.1 Pain in lower limb 05745 006 M79.834 [id number] Geoffrey Olivares MD [facility] [address] [place] [address] 01/16/2024 09:29:24 01/16/2024 10:49:59 Spinal stenosis of lumbar region 66370984 M99.53 Radicular pain 27703921 M54.10 Post-juwan ectomy syndrome 99057388 M96.1 Pain in lower limb 88298 006 M79.426 [id number] Geoffrey Olivares MD [facility] [address] [place] [address] 04/07/2024 09:51:05 04/07/2024 10:40:00 Spinal stenosis of lumbar region 15998592 M99.53 M48.061 Radicular pain 85156111 M54.10 Post-juwan ectomy syndrome 43807490 M96.1 Pain in lower limb 84393 006 M79.137 [id number] Geoffrey Olivares MD [facility] [address] [facility] [address] [place] [address] 07/06/2024 09:59:14 07/06/2024 10:44:24 Post-laminectomy syndrome 54299668 M96.1 - It appears that ITPP therapy is effective, but the patient is experienci ng more low back pain.- In efforts to better manage his pain, I will perform a pump increase today. Pump refill was conducted as scheduled. - UDS obtained today and appropriat e.- The patient will follow up for next pump refill. Spinal michel nosis of lumbar region 28262426 M99.53 M48.061 Pain in lower limb 34240 006 M79.741 [id number] Geoffrey Olivares MD [facility] [address] [facility] [address] [place] [address] 10/05/2024 09:14:14 10/05/2024 10:28:57 Post-laminectomy syndrome 44941637 M96.1 - It appears that ITPP therapy is effective in managing low back pain so I will not make any changes to the pump today. Pump refill was conducted as scheduled. - The patient expresses interest in pump replacemen t with a different company due to lack of support and communicat ion from [employer] I also have had support issues regarding [employer] and feel that the patient would benefit more in the long-term from changing pump companies. - I will proceed with scheduling a pump replacemen t from [employer] to [employer]. - I will follow up for pump replacemen t. Spinal michel nosis of lumbar region 81135105 M99.53 M48.061 Pain in lower limb 07747 006 M79.390 [id number] Geoffrey Olivares MD [facility] [address] [facility] [address] [place] [address] 12/28/2024 13:17:50 12/28/2024 14:52:33 Post-laminectomy syndrome 36876458 M96.1 - The patient is 1 week [...] check. Spinal michel nosis of lumbar region 28513641 M99.53 M48.061 Pain in lower limb 64287 006 M79.702 [id number] Geoffrey Olivares MD [facility] [address] [place] [address] 12/25/2024 07:47:36 12/25/2024 08:28:32 Post-laminectomy syndrome 75063324 M96.1 - The patient is post op [...] settings. Spinal michel nosis of lumbar region 40004619 M99.53 M48.061 Pain in lower limb 66293 006 M79.606 Health Concerns Section Related Observation LastModified by Organization Detai ls LastModified Time None Recorded Concern Status LastModified by Organization Details LastModified Time None Recorded Advance Directives Directive None Recorded Payers Insurance Date Sequence Insurance Name Policy Number Policy Starr Covered Member ID Starr Member ID Guarantor Name 12/24/2024 1 [place] Naun Dave [id number] Naun Dave 11/26/2024 2 [employer] (MEDICARE SUPPLEMENT) Naun Dave [id number] Naun Dave 11/26/2024 2 [facility] (MEDICARE SUPPLEMENT) Naun Dave [id number] Naun Dave Notes Date Note Type Note [...] imaging Geoffrey Olivares MD [address] [facility], [place], [address], [facility] - [place] & [place] 04/13/2024 15:20:40 4 text/html Mr. [...] helpfulImaging/Studies: non recent imaging Geoffrey Olivares MD [address] [facility], [place], [address], [facility] - [place] & [place] 07/07/2024 15:43:42 5 text/html Mr. [...] is unhappy with his current pump company ([employer] due to lack of support and communication. [...] ago - not helpfulImaging/Studies: non recent imaging Geoffery Olivares MD [address] [facility], [place], [address], [facility] - [place] & [place] 10/06/2024 08:41:29 5 text/html Mr. [...] helpfulImaging/Studies: non recent imaging Geoffrey Olivares MD [address], [place], [address], [facility] & [place] 12/25/2024 11:38:37 5 text/html Mr. [...] level today is 6/10. DIMITRIOS SNEED PA-C [address], [place], [address], [facility] & [place] 12/30/2024 07:51:23
--- OUTSIDE RECORDS SUMMARY | 2025-02-05 09:48 | XMS_ITS | Continuity of Care Document ---
Author Organization [facility] & [facility] Address [address] [place] [address] Assessment Encounter Date Assessment Date Assessment LastModified [...] By Organization Details Last Modified Time 12/28/2024 [id number] I have discussed in great detail our [...] Organization Details Recorded Time Post-laminec jacki syndrome 36886251 Active 022 Katiana O[place] & [place] 2 16:21:50 Radicular pain 84265925 Active 022 Kat[place] 2 16:22:17 Pain in lower limb 31531546 Active 022 Kat[place] & [place] 2 16:22:33 Myofascial pain 939894018 Active 022 Kat[place] 2 16:22:51 Nicotine dependence 98400975 Active 022 Kat[place] 2 16:23:23 Spinal stenosis of lumbar region 95159480 Active 023 Kat[place] & [place] 3 15:16:21 Problem Notes None recorded. Procedures Surgical History Date Name Laterality Status Provider Name and Address Organization Details Recorded Time 5 PUMP CHANGES completed Herlinda Diaz [place] & [place] 12/25/2024 10:16:12 5 Intrathecal Drug (ITD) Pump Refill completed Tracy CONTRERAS - [facility] - [place] & [place] 10/05/2024 13:14:26 5 PUMP CHANGES completed Katiana CONTRERAS - [facility] - [place] & [place] 10/05/2024 11:59:21 4 Intrathecal Drug (ITD) Pump Refill completed Tracy Tateantoinette [place] - [place] - [place] & [place] 07/06/2024 11:31:21 4 PUMP CHANGES completed [place] 07/06/2024 15:34:45 4 Intrathecal Drug (ITD) Pump Refill completed Tracy Pierre [place] - [place] - [place] & [place] 04/07/2024 15:20:34 4 PUMP CHANGES completed Tracy CONTRERAS - [facility] - [place] & [place] 04/07/2024 15:21:50 4 Intrathecal Drug (ITD) Pump Refill completed Katiana CONTRERAS - [facility] - [place] & [place] 01/16/2024 17:05:23 4 PUMP CHANGES completed Katiana CONTRERAS - [facility] - [place] & [place] 01/16/2024 17:06:18 4 Intrathecal Drug (ITD) Pump Refill completed Tracy CONTRERAS - [facility] - [place] & [place] 10/24/2023 10:38:22 4 PUMP CHANGES completed Carmen CONTRERAS - [facility] - [place] & [place] 10/24/2023 10:24:27 3 Intrathecal Drug (ITD) Pump Refill completed Tracy [facility] [place] 07/25/2023 10:48:04 3 PUMP CHANGES completed Tracy CONTRERAS - [facility] - [place] & [place] 07/25/2023 10:48:16 3 Intrathecal Drug (ITD) Pump Refill completed Katiana CONTRERAS [facility] & [place] 05/02/2023 12:12:50 3 PUMP CHANGES completed Katiana CONTRERAS - [facility] - [place] & [place] 05/02/2023 12:13:20 3 Intrathecal Drug (ITD) Pump Refill completed Katiana CONTRERAS - [facility] & [place] 2023 17:12:00 3 PUMP CHANGES completed Katiana CONTRERAS - [facility] - [place] & [place] 2023 17:13:34 3 Intrathecal Drug (ITD) Pump Refill completed Preethi Mattsono [place] - [place] - [place] & [place] 11/06/2022 16:29:19 3 PUMP CHANGES completed Preethi Mattsono [place] & [place] 11/06/2022 16:32:31 2 Intrathecal Drug (ITD) Pump Refill completed Katiana CONTRERAS - [facility] & [place] 07/23/2022 16:28:25 2 PUMP CHANGES completed Katiana CONTRERAS - [facility]NT [facility] 07/23/2022 16:31:34 Imaging Results None recorded. Procedure [...] Address Organization Details Last Updated DateTime 5 06142.2 2 g 97.5 [degF] 97 % 97 % 83 /min 170 mm[Hg] 72 mm[Hg] Angelica Silva [facility] & [place] 5 13:32:12 Social History None recorded. Functional Status None recorded. Mental Status None recorded. Family History Nothing Reported. Medical History No medical history recorded. Past Encounters Encounter ID Performer Location Encounter Start Date Encounter Closed Date Diagnosis/Indication Diagnosis SNOMED-CT Code Diagnosis ICD10 Code Diagnosis Note [id number] Geoffrey Olivares MD [facility] [address] [place] [address] 12/28/2024 13:17:50 12/28/2024 14:52:33 Post-laminectomy syndrome 20272536 M96.1 - The patient is 1 week S/P intratheca l pain pump implant from [employer] to [employer]. on 12/22/24.- Patient states his [...] check. Spinal mitzy nosis of lumbar region 26994332 M99.53 M48.061 Pain in lower limb 21305 006 M79.918 [id number] Geoffrey Olivares MD [facility] [address] [place] [address] 12/25/2024 07:47:36 12/25/2024 08:28:32 Post-laminectomy syndrome 98278167 M96.1 - The patient is post op ITTP pump replacemen t from [employer] and [employer] (12/22/24). - The nurse called the patient [...] settings. Spinal mitzy nosis of lumbar region 99297107 M99.53 M48.061 Pain in lower limb 45794 006 M79.606 Health Concerns Section Related Observation LastModified by Organization Detai ls LastModified Time None Recorded Concern Status LastModified by Organization Details LastModified Time None Recorded Payers Encounter Date Sequence Insurance Name Policy Number Policy Starr Covered Member ID Starr Member ID Guarantor Name 12/28/2024 1 [place] Naun Dave [id number] Naun Dave 12/28/2024 2 [facility] (MEDICARE SUPPLEMENT) Naun Dave [id number] Naun Dave Notes Date Note Type Note [...] level today is 6/10. DIMITRIOS SNEED PA-C [address], [place], [address], [facility] - [place] & [place] 12/30/2024 07:51:23
--- OUTSIDE RECORDS SUMMARY | 2025-02-05 09:48 | XMS_ITS | Continuity of Care Document ---
Author Organization [facility] Address [address] [place] [address] Assessment Encounter Date Assessment Date Assessment LastModified [...] changed ITTP pump from [employer] to [employer]. [email or web address] Not available 12/25/2024 09:36:22 Plan of Treatment [...] By Organization Details Last Modified Time 12/25/2024 [id number] I have discussed in great detail our [...] IV medications that require review by law. [email or web address] Not available 12/25/2024 09:08:18 Reason for Referral None Reported. Problems Name Problem SNOMED Code Status Onset Date Resolution Date Notes Provider Name and Address Organization Details Recorded Time Post-laminec jacki syndrome 93317709 Active 022 Katiana [place] 2 16:21:50 Radicular pain 73650122 Active 022 Kat[place] 2 16:22:17 Pain in lower limb 79735744 Active 022 Kat[place] 2 16:22:33 Myofascial pain 708214552 Active 022 Kat[place] 2 16:22:51 Nicotine dependence 38644701 Active 022 Kat[place] 2 16:23:23 Spinal stenosis of lumbar region 44183443 Active 023 Kat[place] 3 15:16:21 Problem Notes None recorded. Procedures Surgical History Date Name Laterality Status Provider Name and Address Organization Details Recorded Time 5 PUMP CHANGES completed Herlinda Diaz [place] & [place] 12/25/2024 10:16:12 5 Intrathecal Drug (ITD) Pump Refill completed Tracy Pierre [place] 10/05/2024 13:14:26 5 PUMP CHANGES completed Katianahaley [place]ana [place] & [place] 10/05/2024 11:59:21 4 Intrathecal Drug (ITD) Pump Refill completed Tracy CONTRERAS - [facility] - [place] & [place] 07/06/2024 11:31:21 4 PUMP CHANGES completed Katiana CONTRERAS - [facility] - [place] & [place] 07/06/2024 15:34:45 4 Intrathecal Drug (ITD) Pump Refill completed Tracy CONTRERAS - [facility] - [place] & [place] 04/07/2024 15:20:34 4 PUMP CHANGES completed Tracy CONTRERAS - [facility] - [place] & [place] 04/07/2024 15:21:50 4 Intrathecal Drug (ITD) Pump Refill completed Katiana CONTRERAS - [facility] - [place] & [place] 01/16/2024 17:05:23 4 PUMP CHANGES completed Katiana CONTRERAS - [facility] - [place] & [place] 01/16/2024 17:06:18 4 Intrathecal Drug (ITD) Pump Refill completed Tracy CONTRERAS - [facility] - [place] & [place] 10/24/2023 10:38:22 4 PUMP CHANGES completed Carmen CONTRERAS - [facility] - [place] & [place] 10/24/2023 10:24:27 3 Intrathecal Drug (ITD) Pump Refill completed Tracy CONTRERAS - [facility] - [place] & [place] 07/25/2023 10:48:04 3 PUMP CHANGES completed Tracy CONTRERAS - [facility] - [place] & [place] 07/25/2023 10:48:16 3 Intrathecal Drug (ITD) Pump Refill completed Katiana CONTRERAS - [facility] - [place] & [place] 05/02/2023 12:12:50 3 PUMP CHANGES completed Katiana CONTRERAS - [facility] - [place] & [place] 05/02/2023 12:13:20 3 Intrathecal Drug (ITD) Pump Refill completed Katiana CONTRERAS - [facility] - [place] & [place] 2023 17:12:00 3 PUMP CHANGES completed Katiana CONTRERAS - [facility] - [place] & [place] 2023 17:13:34 3 Intrathecal Drug (ITD) Pump Refill completed Preethi CONTRERAS - [facility] - [place] & [place] 11/06/2022 16:29:19 3 PUMP CHANGES completed Preethi CONTRERAS - [facility] - [place] & [place] 11/06/2022 16:32:31 2 Intrathecal Drug (ITD) Pump Refill completed Katiana CONTRERAS - [facility] - [place] & [place] 07/23/2022 16:28:25 2 PUMP CHANGES completed Katiana CONTRERAS - [facility] - [place] & [place] 07/23/2022 16:31:34 Imaging Results None recorded. Procedure [...] Address Organization Details Last Updated DateTime 5 71550.2 5 g 97.8 [degF] 96 % 96 % 93 /min 140 mm[Hg] 86 mm[Hg] [facility] & [place] 5 08:59:34 Social History None recorded. Functional Status None recorded. Mental Status None recorded. Family History Nothing Reported. Medical History No medical history recorded. Past Encounters Encounter ID Performer Location Encounter Start Date Encounter Closed Date Diagnosis/Indication Diagnosis SNOMED-CT Code Diagnosis ICD10 Code Diagnosis Note [id number] Geoffrey Olivares MD [facility] [address] [place] [address] 12/25/2024 07:47:36 12/25/2024 08:28:32 Post-laminectomy syndrome 27502075 M96.1 - The patient is post op ITTP pump replacemen t from [employer] and [employer] (12/22/24). - The nurse called the patient [...] settings. Spinal mitzy nosis of lumbar region 30267002 M99.53 M48.061 Pain in lower limb 14105 006 M79.606 Health Concerns Section Related Observation LastModified by Organization Detai ls LastModified Time None Recorded Concern Status LastModified by Organization Details LastModified Time None Recorded Payers Encounter Date Sequence Insurance Name Policy Number Policy Starr Covered Member ID Starr Member ID Guarantor Name 12/25/2024 1 [place] Naun Dave [id number] Naun Dave 12/25/2024 2 [facility] (MEDICARE SUPPLEMENT) Naun Dave [id number] Naun Dave Notes Date Note Type Note [...] helpfulImaging/Studies: non recent imaging Geoffrey Olivares MD [address] [facility], [place], [address], [facility] - [place] & [place] 12/25/2024 11:38:37
--- OUTSIDE RECORDS SUMMARY | 2025-02-05 09:48 | XMS_ITS | Patient Health Record ---
Author Organization [facility] Address [address] [place] [address] [place] [address] Care Team Providers Care Radiophone Operator Name Role Phone Gregorio Ware Primary Care [...] Component Value Reference Range Notes MAGNESIUM (622) Reviewed date:02/03/2025 10:45:53 AM Interpretation: Performing Lab:СЕРГЕЙ, [facility] [address], [place] [place] Notes/Report: NON-FASTING; NON-FASTING; NON-FASTING MAGNESIUM 2.3 1.5-2.5 mg/dL Ultrasound : Gallbladder Reviewed date:02/04/2025 11:03:23 AM Interpretation: Performing Lab: Notes/Report: FERRITIN (457) Reviewed date:02/03/2025 10:45:53 AM Interpretation: Performing Lab:СЕРГЕЙ [facility] [address], [place] [place] Notes/Report: NON-FASTING; NON-FASTING; NON-FASTING FERRITIN 116 24-380 ng/mL CBC (INCLUDES DIFF/PLT) (639 9) Reviewed date:02/03/2025 10:45:53 AM Interpretation: Performing Lab:СЕРГЕЙ [facility] Xemh0208 [facility], [facility] Hospital[facility]rijSJ[address] [place] Notes/Report: NON-FASTING; NON-FASTING; NON-FASTING WHITE [...] MPV 10.1 7.5-12.5 fL ABSOLUTE NEUTROPHILS 3114 4537-6100 cells/uL ABSOLUTE LYMPHOCYTES 8463 887-4564 cells/uL ABSOLUTE MONOCYTES 281 200-950 cells/uL ABSOLUTE EOSINOPHILS 78 15-500 cells/uL ABSOLUTE BASOPHILS 41 0-200 cells/uL NEUTROPHILS 67.7 LYMPHOCYTES 23.6 MONOCYTES 6.1 EOSINOPHILS 1.7 BASOPHILS 0.9 LIPID PANEL, STANDARD (7600) Reviewed date:02/03/2025 10:45:52 AM Interpretation: Performing Lab:СЕРГЕЙ [facility] [id number] [facility], [facility] HealthXzqrXX[address] [place] Notes/Report: NON-FASTING; NON-FASTING; NON-FASTING CHOLESTEROL, [...] equation in the estimation of LDL-C. Bill WILSON et al. CATHIE. 2013;310(19): 6497-3609 (http://education.OpenStudy.com/faq/NWK701) CHOL/HDLC RATIO 3.1 <5.0 (calc) NON HDL CHOLESTEROL 73 <130 mg/dL (calc) For patients with diabetes plus 1 major ASCVD risk factor, treating to a non-HDL-C goal of <100 mg/dL (LDL-C of <70 mg/dL) is considered a therapeutic option. PSA, TOTAL (5363) Reviewed date:02/03/2025 10:45:53 AM Interpretation: Performing Lab:СЕРГЕЙ [facility] [id number] [employer] [facility], [facility] HealthRoyrAR[address] [place] Notes/Report: NON-FASTING; NON-FASTING; NON-FASTING PSA, TOTAL 1.17 < OR = 4.00 ng/mL The total PSA value from this assay system is standardized against the WHO standard. The test result will be approximately 20% lower when compared to the equimolar-standardized total PSA (Mohan [place]). Comparison of serial PSA results should be interpreted with this fact in mind. This test was performed using the Siemens chemiluminescent method. Values obtained from different assay methods cannot be used interchangeably. PSA levels, regardless of value, should not be interpreted as absolute evidence of the presence or absence of disease. COMPREHENSIVE METABOLIC PANE L (08052) Reviewed date:02/03/2025 10:45:53 AM Interpretation: Performing Lab:СЕРГЕЙ [facility] [id number] [employer] [facility], [facility] HospitalKpheBD[address] [place] Ng Notes/Report: NON-FASTING; NON-FASTING; NON-FASTING GLUCOSE [...] 25 10-35 U/L ALT 33 9-46 U/L THYROID PANEL WITH TSH (7444 ) Reviewed date:02/03/2025 10:45:52 AM Interpretation: Performing Lab:CB, [facility] [address], [facility] HealthPajaGM[address] [place] Notes/Report: NON-FASTING; NON-FASTING; NON-FASTING T3 UPTAKE 38 22-35 % T4 (THYROXINE), TOTAL 7.2 4.9-10.5 mcg/dL FREE T4 INDEX (T7) 2.7 1.4-3.8 TSH 0.61 0.40-4.50 mIU/L CT Scan : Chest, Lung Cancer Screening Reviewed date:11/11/2024 12:41:24 PM Interpretation: Performing Lab: Notes/Report: Reason For Referral Reason Needs low-dose CT sc an Diagnosis 1 Tobacco dependence ( F17.200) Referral Organization [facility] Referring Provider First Name Gregorio Referring Provider Last Name Chaz Referring Provider Speciality Internal edicine Referred Organization [facility] Referred Address [address] [place] [phone], Referred Provider Specialty Diagnostic R adiology General Notes Jennifer Ferrer 2024 11:28:53 AM >sent to [facility] to schedule Referral Priority Routine Referral Appointment Date 11/05/2024 Reason Gallbladder ultrasou nd and appointment with Dr. Izquierdo Diagnosis 1 Symptomatic cholelit hiasis (K80.20) Referral Organization [facility] Referring Provider First Name Gregorio Referring Provider Last Name Chaz Referring Provider Speciality Internal M edicine Referred Organization [facility] Referred Address [address] [place] [phone], Referred Provider Specialty General Surg augustine General Notes Jennifer Ferrer 2024 10:13:27 AM >sent to [facility] to scheduled u/S Referral Priority Routine Referral [...] e review and pick correct strength-formulation from [employer] options. If intended option is not shown, [...] Problem Status W/U Status Risk Notes Problem 71724238 Generalized anxiety disorder (F41.1) Active confirmed Problem 349244310 Chronic pain syndrome (G89.4) Active confirmed Problem 24591904 Diplopia (H53.2) Active confirmed Problem 709128380 Lumbago with sciatica, left side (M54.42) Active confirmed Problem 88146039 Personal history of nicotine dependence (Z87.891) Active confirmed Problem 92361948 Essential hypertension (I10) Active confirmed Problem 810423982 Hyperlipemia, idiopathic familial (E78.5) Active confirmed Problem 993717769 GERD without esophagitis (K21.9) Active confirmed Problem 686927757 Tubular adenoma of colon (D12.6) Active confirmed Problem 79906707 Restless leg syndrome (G25.81) Active confirmed Problem 88914514 Idiopathic peripheral neuropathy (G60.9) Active confirmed Problem 857055320 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) Active confirmed Problem 957820895 Acquired hypothyroidism (E03.9) Active confirmed Problem 83411515 Dysthymia (F34.1) Active confirmed Problem 257116335 Pulmonary nodule (R91.1) Active confirmed Problem 28295049 Lumbar spinal stenosis (M48.06) Active confirmed Problem 421002958 Benign prostatic hyperplasia with lower urinary tract symptoms, unspecified morphology (N40.1) Active confirmed Problem 18365894 Tobacco dependen ce (F17.200) Active confirmed Problem 453249100 Healthcare maintenance (Z00.00) Active confirmed Problem 993897435726383 Drug induced constipation (K59.03) Active confirmed Problem 158462052 Symptomatic cholelithiasis (K80.20) Active confirmed Vital Signs Heart Rate 76 /min 02/01/2025 Temperature 97.7 degrees Fahrenheit 02/01/2025 Blood pressure diastolic 70 mm Hg 02/01/2025 Height 74 in 02/01/2025 Blood pressure systolic 132 mm Hg 02/01/2025 Weight 206 lbs 02/01/2025 BMI 26.45 kg/m2 02/01/2025 Encounters Encounter Location Date Provider Diagnosis [facility] [address] [facility] [address] [place] [address] 11/28/2024 Provider Migration Essential hypertension I10 and GERD without esophagitis K21.9 [facility] [address] [facility] [address] [place], [place] [address] 03/16/2024 Gregorio Ware Personal history of nicotine dependence Z87.891 ; Essential hypertension I10 and Acquired hypothyroidism E03.9 [facility] [address] [facility] [address] [place], [place] [address] 06/15/2024 Gregorio Ware Essential hypertensi on I10 ; Acquired hypothyroidism E03.9 ; Idiopathic peripheral neuropathy G60.9 ; Immunization(s) administered Z23 ; Personal history of nicotine dependence Z87.891 ; Pulmonary nodule R91.1 and Medicare annual wellness visit, subsequent Z00.00 [facility] [address] [facility] [address] [place], [place] [address] 10/19/2024 Gregorio Ware Chronic pain syndrom e G89.4 ; Benign prostatic hyperplasia with lower urinary tract symptoms, unspecified morphology N40.1 ; Essential hypertension I10 ; Tobacco dependence F17.200 ; GERD without esophagitis K21.9 and Healthcare maintenance Z00.00 [facility] [address] [facility] [address] [place], [place] [address] 02/01/2025 Gregorio Ware Hyperlipemia, idiopathic familial E78.5 ; Acquired hypothyroidism E03.9 ; Essential hypertension I10 ; Benign prostatic hyperplasia with lower urinary tract symptoms, unspecified morphology N40.1 ; Restless leg syndrome G25.81 and Symptomatic cholelithiasis K80.20 [facility] [address] [place] [address] 07/20/2024 Gregorio Besson [facility] [address] [facility] [address] [place] [address] 09/02/2024 Gregorio Besson [facility] [address] [facility] [address] [place] [address] 10/02/2024 Gregorio Besson [facility] [address] [place] [address] 10/19/2024 Gregorio Ware History of nicotine dependence [...] - will obtain labs at next visit. 10/19/2024 Chronic pain syndrome (ICD-10 - G89.4) Stable, follows with pain management and has pain pump. 10/19/2024 Benign prostatic hyperplasia with lower urinary tract symptoms, unspecified morphology (ICD-10 - N40.1) stable, doing well with tamsulosin, no complaints. Continue current management. 10/19/2024 History of nicotine dependence (ICD-10 - Z87.891) 06/15/2024 Essential hypertension (ICD-10 - I10) BP [...] No change in plans. No worrisome symptoms. 02/01/2025 Hyperlipemia, idiopathic familial (ICD-10 - E78.5) 02/01/2025 Acquired hypothyroidism (ICD-10 - E03.9) Clinically euthyroid, check labs. Please note I will review all labs personally 02/01/2025 Essential hypertension (ICD-10 - I10) 06/15/2024 Idiopathic peripheral neuropathy (ICD-10 - G60.9) Intolerant to PO medications. Has fentanyl pain pump. Recently reduced dose which has resulted in worsening symptoms. Plans to increase dose at next visit. 11/28/2024 Essential hypertension (ICD-10 - I10) 10/19/2024 Essential hypertension (ICD-10 - I10) BP slightly elevated in clinic today but has been normotensive with systolics in the 120's at home. Continue lisinopril 10 mg daily. 03/16/2024 Acquired hypothyroidism (ICD-10 - E03.9) - continue with synthroid. 10/19/2024 Tobacco dependence (ICD-10 - F17.200) 2-3 ppd, no interest in cessation. Low dose CT due and ordered today. 06/15/2024 Immunization(s) administered (ICD-10 - Z23) 02/01/2025 Benign prostatic hyperplasia with lower urinary tract symptoms, unspecified morphology (ICD-10 - N40.1) Stable, check labs 02/01/2025 Restless leg syndrome (ICD-10 - G25.81) Sounds he has restless leg. Check ferritin and magnesium along with other labs. Follow-up 1 month, trial of medication if he wishes at that point if we cannot find any metabolic issues 06/15/2024 Personal history of nicotine dependence (ICD-10 [...] get ultrasound and then make referral to [facility] surgery at his request. I reviewed [...] 07/06/2019 Next Appt Details Provider Name:Gregorio Ware, 03/01/2025 09:45:00 AM, [address] [facility], [address], [place], [address], Insurance Providers Payer Name Payer Address Payer Phone Subscriber Number Group Number Insured Name Patient Relationship to Insured Coverage Start Date Coverage End Date [place]IC[place] [address] [id number] Naun Dave Self - patient is the insured DANIEL Medicare Supplement [address] [address] [place], [place] [phone] [id number] Naun Dave Self - patient is the insured [address] [place] [address] ACL Dave Naun Self - patient is the [...]
--- NOTE | 2025-02-05 10:02 | ECG_ITS ---
APPROVED REPORT Exam: Resting ECG HR:79 bpm ECG Measurements Heart Rate 79 AXES TX 177 P 82 QRSd 132 QRS 89 QT 372 T 57 QTc 407 Conclusion SINUS RHYTHM RIGHT BUNDLE BRANCH BLOCK [120+ ms QRS DURATION, UPRIGHT V1, 40+ ms S IN I/aVL/V4/V5/V6] ABNORMAL ECG UNCONFIRMED REPORT Electronically signed by : Gregorio Ware MD 02/10/2025 08:19:16
== END 2025-02-05 23:59 | disposition home or self-care (01) ==
LOC: PREOP 09:43
PROVIDERS: PCP Internal Medicine Adolescent Medicine; Visit Provider Surgery
DX: Z01.810 Encounter for preprocedural cardiovascular examination (principal); I45.10 Unspecified right bundle-branch block; R94.31 Abnormal electrocardiogram [ECG] [EKG]
CPT/HCPCS: 93005

== ENCOUNTER 2025-02-12 08:01 | Day surgery (SDC) | payer MEDICARE, OTHER, SELFPAY ==
[2025-02-05 11:56] VITALS: BMI 26.3
[2025-02-12] VITALS (10 sets, daily range): BP systolic 110–149; BP diastolic 57–77; PULSE 72–100; RESP 14–18; TEMP 35.9–43; O2SAT 96–98
[2025-02-12] MEDS: LACTATED RINGERS 1000ML 1,000 ML 999 ML IV (08:13)
[2025-02-12] MEDS: LIDOCAINE 1% 20ML MDV 20 ML (09:02)
[2025-02-12] MEDS: CEFAZOLIN SODIUM 2 GM in 0.9 % SODIUM CHLORIDE 100 ML IV (09:03)
--- NOTE | 2025-02-12 09:11 | P.PNANES_ITS ---
[facility] Disclaimer: The information contained in this section may have been updated after the patient was seen, as this information can be updated by other users. Medical History GERD (gastroesophageal reflux disease) Hypothyroid HTN (hypertension) COPD (chronic obstructive pulmonary disease) Surgical History History of surgery History of hand surgery History of back surgery History of colonoscopy Family History Other Family history of diabetes mellitus Family history of heart disease Social History Smoking Status: Current every day smoker tobacco type: cigarettes packs per day: 1 second hand exposure: Yes alcohol intake: never substance use type: denies use current occupational status: retired Travel in the last 8 weeks?: None household members: other housing: house current occupational exposures/hazards: No caffeine: Yes Have you lived/traveled outside US in past 30 days?: No Contact w/someone who lives/traveled outside US past 30 days?: No Exposure to someone with infectious disease in past 14 days?: No Do you have a fever (greater than 100.4 F or 38 C)?: No Have you tested positive for COVID-19?: No Exposed to someone with COVID-19 in past 14 days?: No Do you have a sore throat?: No Do you have a cough?: No Do you have any weakness?: No Are you experiencing any nausea/vomitting?: Yes Do you have any diarrhea?: No Are you experiencing any unusual bleeding?: No Do you have any muscle aches/pain?: No Do you have any abdominal pain?: No Are you experiencing loss of taste or smell?: No [facility] Anesthesia Checklist Patient Identification Patient Identification: Verbal (Name & ) Structural Data Admitted From: Home Planned Operative Procedure/s: tana rasmussene Consent for Planned Operative Procedure(s) Verified: Yes NPO Status Verified Time NPO: 00:00 Additional verifications Anesthesia Reactions: No Hx Blood Transfusions: No Blood Transfusion Reaction: No Airway Assessment Mallampati Score:: Class II C-Spine Mobility Assessed: Yes TMJ Mobility Assessed: Yes Dentition: Dentures-good fit Neurological Assessment Level of Consciousness: Awake, Alert and Appropriate Anesthesia Plan Anesthesia Risk discussed: Yes Anesthesia Plan: Verified ASA Class: II Anesthesia Type: General
--- NOTE | 2025-02-12 09:37 | EXP.OP.NOTE ---
Date of procedure: 02/12/25 Pre-op Diagnosis:: Chronic calculus cholecystitis Post-op Diagnosis:: Acute on chronic calculus cholecystitis Procedure performed:: Laparoscopic cholecystectomy Surgeon:: Yahir Izquierdo MD AUTOMOTIVE QUALITY MANAGER:: Clement Paz Anesthesia: GETA Estimated blood loss (mL): 15 Operative findings:: Distended gallbladder Fairly severe infundibular thickening Serosal weeping Operative note:: After informed consent was obtained, the patient was taken to the operating room and placed in the supine position. General anesthesia was induced and the abdomen was prepped and draped in a sterile fashion. After infiltration with local anesthetic an supraumbilical incision was made. A Veress needle was placed in position. The abdomen was insufflated. A 5 mm optical trocar was placed in position. Under direct visualization, a 12 mm trocar was placed in the subxiphoid position and 2 additional 5 mm trocars were placed in the right upper quadrant. The gallbladder was elevated up and over the liver margin. The tissue around the cystic duct was carefully dissected. 3 clips were placed proximally and the duct was transected with harmonic evelin. The cystic artery was dissected free and controlled with 3 clips in a similar fashion. Harmonic evelin were then utilized to dissect the gallbladder away from the liver margin. The gallbladder was placed in a retrieval bag and removed through the subxiphoid trocar site. The right upper quadrant was thoroughly irrigated. No active bleeding or bile leak was noted. Fascia at the subxiphoid trocar site was reapproximated utilizing the NeoClose device. The remaining trocars were removed. All wounds were irrigated and skin was closed with 4-0 Monocryl in a subcuticular fashion. Steri-Strips were applied. The patient's anesthetic agents were reversed and extubation was completed prior to transfer to recovery in stable condition. Condition: stable Disposition: PACU Specimens:: Gallbladder Complications:: No immediate
--- NOTE | 2025-02-12 09:51 | P.PNANES_ITS ---
[facility] Anesthesia Record Part I Anesthesia Record I Intake, IV Amount: 2,000 Hydration: Adequate Estimated blood loss (mL): 0 Urine output (mL): 0 Blood Pressure: 148/71 SaO2: 96 Pulse Rate: 79 Airway Patency: Patent Respiratory Rate: 14 Temperature: 97.8 F Patient is:: Awake and Stable Stable to PACU at:: 09:50
[2025-02-12] MEDS: HYDROMORPHONE 2MG/ML SYRINGE 0.5 MG IV ×2 (10:10→10:20)
--- NOTE | 2025-02-12 10:30 | SUR.PHASEI ---
1024- Patient VSS. C/O discomfort in his abdomen. Dilaudid given per MAR orders. Patient sitting up in bed and requesting coffee. Patient transported to post op and report given to CLIVE Keller.
--- NOTE | 2025-02-15 07:57 | EXP.ANES.II ---
[facility] Anesthesia Record Part II Anesthesia Record Part II Discharge Time: 10:20 Destination: Surgical Day Care (OP Surgery) PACU nurse assessment reviewed?: Yes Patient Condition:: Good Anesthesia Complications:: None Swallowing reflex intact?: Yes Airway Patency: Patent Cyanosis?: No Blood Pressure: 115/60 SaO2: 96 Respiratory Rate: 18 Pulse Rate: 74 Temperature: 98.3 F Mental Status: Alert & Oriented Pain level:: 7 Nausea and/or vomitting:: None Intake, IV Amount: 0 Hydration: Adequate
[2025-02-15 07:58] VITALS: BP 115/60; PULSE 74; RESP 18; TEMP 36.8; O2SAT 96
== END 2025-02-12 11:09 | disposition home or self-care (01) ==
PROVIDERS: PCP Internal Medicine Adolescent Medicine; Visit Provider Surgery
PROC: 0FT44ZZ Resection of Gallbladder, Percutaneous Endoscopic Approach (ICD-10-PCS; CPT 47562; principal; 2025-02-12 09:30)
DX: K80.10 Calculus of gallbladder with chronic cholecystitis without obstruction (principal); J44.9 Chronic obstructive pulmonary disease, unspecified; K21.9 Gastro-esophageal reflux disease without esophagitis; I10 Essential (primary) hypertension; E03.9 Hypothyroidism, unspecified; F17.210 Nicotine dependence, cigarettes, uncomplicated; Z88.5 Allergy status to narcotic agent; Z88.1 Allergy status to other antibiotic agents; Z88.8 Allergy status to other drugs, medicaments and biological substances; Z88.6 Allergy status to analgesic agent; Z79.890 Hormone replacement therapy; Z79.899 Other long term (current) drug therapy
CPT/HCPCS: 47562; 88304; 96374; J0690; J1100; J1171; J1596; J1885; J2003; J2250; J2405; J2704; J2710; J3010; J7120

== ENCOUNTER 2025-07-05 08:32 | Outpatient (CLI) | payer MEDICARE, OTHER, SELFPAY ==
--- OUTSIDE RECORDS SUMMARY | 2024-11-28 16:30 | XMS_ITS ---
Author Organization [facility] D [facility] Address [address] [place] [address] Care Team Providers Care Life Tester [employer] Name Role Phone Gregorio Ware Primary Care Provider [phone] Migration, Provider Unavailable Unavailable Allergies Allergen (clinical drug ingredient) Drug/Non Drug Allergy documented on EMR Reaction Allergy Type Onset Date Status duloxetine Cymbalta confusion Drug Allergy Active pregabalin Lyrica confusion Drug Allergy Active gemfibrozil Lopid increase in live r enzymes Drug Allergy Active gabapentin Neurontin Unknown Drug Allergy [facility]version Encounter Medications Medication SIG (Take, Route, Frequency, Duration) Notes Start Date End Date Status Omeprazole 20 MG 1 cap(s) orally once a day; Duration: 90 days 10/19/2024 Active Lisinopril 20 MG 1/2 tab(s) orally once a day; Duration: 90 days Active Baclofen 20 MG 1 tab(s) orally 3 times a day; Duration: 90 Active Omeprazole 20 MG 1 cap(s) orally once a day prn; Duration: 90 Active Tamsulosin HCl 0.4 MG 2 capsules orally once a day; Duration: 90 days Active MOMETASONE FUROATE TOPICAL 0.1% 1 JODY APPLIED TOPICALLY ONCE A DAY; Duration: 7 DAYS *Please review for potential replacement for e-prescription and drug interaction check* 10/19/2024 Active Euthyrox 125 MCG (0.125 MG) TAKE 1 TABLET BY MOUTH ONCE DAILY; Duration: 90 *Please review and pick correct strength-formulation from Medispan options. If intended option is not shown, discontinue and re-order from Quick Search* Active fentaNYL pain pump *Pleas e review and pick correct strength-formulation from Medispan options. If intended option is not shown, discontinue and re-order from Quick Search* Active Encounters Encounter Location Date Provider Diagnosis [facility] [address] [facility] [address] [facility] [address] [place] [address] 11/28/2024 Provider Migration Essential hypertension I10 and GERD without esophagitis K21.9 Assessments Encounter Date Diagnosis (ICD Code) Assessment Notes Treatment Notes Treatment Clinical Notes Section Notes 11/28/2024 Essential hypertension (ICD-10 - I10) 11/28/2024 GERD without esophagitis (ICD-10 - K21.9) Plan Of Treatment Medication Medication Name Sig Start Date Stop Date Notes Omeprazole 20 MG 1 cap(s) orally once a day; Duration: 90 days 10/19/2024 Lisinopril 20 MG 1/2 tab(s) orally once a day; Duration: 90 days MOMETASONE FUROATE TOPICAL 0.1% 1 JODY APPLIED TOPICALLY ONCE A DAY; Duration: 7 DAYS 10/19/2024 *Please review for potential replacement for e-prescription and drug interaction check* Next Appt Details Provider Name:Gregorio Ware, 08/09/2025 12:00:00 PM, [address] [facility] [address] [facility], [address], [place], [address], Progress Notes * Naun DAVE LDOB:1950 (75 yo M)Acc No.[id number]:11/28/2024 Patient: Naun CORNEJO Provider: Jackson Perry :1950 A ge:74 Y S ex:Male Date:11/28/2024 Address:[address] [id number] Pcp:Gregorio Ware Subjective: * Chief Complaints: * 1 . Multum To Medispan Conversion Encounter. * Medical History: * Medications: T aking fentaNYL , Notes to Pharmacist: pain pump *Please review and pick correct strength-formulation from Medispan options. If intended option is not shown, discontinue and re-order from Quick Search*, Taking Euthyrox 125 MCG (0.125 MG) TABLET TAKE 1 TABLET BY MOUTH ONCE DAILY , Notes to Pharmacist: *Please review and pick correct [facility]. If intended option is not shown, discontinue and re-order from Quick Search*, Taking Tamsulosin HCl 0.4 MG Capsule 2 capsules orally once a day , Taking Omeprazole 20 MG Capsule Delayed Release 1 cap(s) orally once a day prn , Taking Baclofen 20 MG Tablet 1 tab(s) orally 3 times a day * Allergies: L opid: increase in liver enzymes, Neurontin, Cymbalta: confusion, Lyrica: confusion. Objective: * Vitals: Assessment: * Assessment: 1. E ssential hypertension - I10 2 . G ERD without esophagitis - K21.9 Plan: * Treatment: 2. G ERD without esophagitis Start Omeprazole Capsule Delayed Release, 20 MG, 1 cap(s), orally, once a day, 90 days, 90 Capsule, Refills 3. 3. O thers Start MOMETASONE FUROATE TOPICAL CREAM, 0.1%, 1 JODY, APPLIED TOPICALLY, ONCE A DAY, 7 DAYS, 80 GRAM, Refills 1, Notes to Pharmacist: *Please review for potential replacement for e-prescription and drug interaction check*. * * Electronic signature of Lorena wong Migration on 07/05/2025 at 08:43 AM EST Sign off status: Pending * Provider: Jackson santiago Migration Date: 0 11/28/2024 Generated for Abby toure/Veronica/Spenser on: 09/04/2024 08:43 AM EST
--- OUTSIDE RECORDS SUMMARY | 2025-06-07 05:00 | XMS_ITS ---
Author Organization [facility] Address [address] [place] [address] Care Team Providers Care Management Trainee Program Stores Name Role Phone Gregorio Ware Primary Care Provider [phone] Allergies Allergen (clinical drug ingredient) Drug/Non Drug Allergy documented on EMR Reaction Allergy Type Onset Date Status duloxetine Cymbalta confusion Drug Allergy Active pregabalin Lyrica confusion Drug Allergy Active gemfibrozil Lopid increase in live r enzymes Drug Allergy Active gabapentin Neurontin Unknown Drug Allergy Active REASON FOR VISIT f/u 3 mth Medications Medication SIG (Take, Route, Frequency, Duration) Notes Start Date End Date Status Lisinopril 20 MG 1/2 tab(s) orally once a day; Duration: 90 days Active fentaNYL pain pump *Pleas e review and pick correct strength-formulation from Vixar options. If intended option is not shown, discontinue and re-order from Quick Search* Active Omeprazole 20 MG 1 cap(s) orally once a day prn; Duration: 90 Active Carbidopa-Levodopa 25-100 MG 1 tablet as needed Orally at bedtime; Duration: 30 days 03/01/2025 Active Tamsulosin HCl 0.4 MG 2 capsules orally once a day; Duration: 90 days Active Euthyrox 125 MCG 1 tablet in the morning on an empty stomach Orally Once a day; Duration: 90 days Active Immunizations Vaccine Route Administration Date Status Comme nts Fluzone High Dose IM Intramuscular 06/07/2025 Administered Social History Tobacco Use: Social History [...] Problem Status W/U Status Risk Notes Problem Neurogenic claudication ([id number]) Spinal stenosis of lumbar region with neurogenic claudication (M48.062) Active confirmed Vital Signs Temperature 97.5 degrees Fahrenheit 06/07/20 25 Blood pressure systolic 140 mm Hg 06/07/20 25 Blood pressure diastolic 70 mm Hg 025 Heart Rate 100 /min 06/07/2025 Height 74 in 06/07/2025 Weight 201 lbs 06/07/2025 BMI 25.8 kg/m2 06/07/2025 Encounters Encounter Location Date Provider Diagnosis [facility] [address] [facility] [address] [place] [address] 06/07/2025 Gregorio Ware Immunization(s) administered Z23 ; Hyperlipemia, idiopathic familial E78.5 ; Essential hypertension I10 ; Acquired hypothyroidism E03.9 ; Chronic pain syndrome G89.4 ; Idiopathic peripheral neuropathy G60.9 ; Benign prostatic hyperplasia with lower urinary tract symptoms, unspecified morphology N40.1 ; Spinal stenosis of lumbar region with neurogenic claudication M48.062 ; 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 No other labs needed 06/07/2025 Hyperlipemia, idiopathic familial (ICD-10 - E78.5) Lipids previously well-controlle d, reviewed labs with patient. 06/07/2025 Essential hypertension (ICD-10 - I10) Blood pressure under good control 06/07/2025 Acquired hypothyroidism (ICD-10 - E03.9) Clinically euthyroid. Reviewed TSH from last visit. Labs also normal 06/07/2025 Chronic pain syndrome (ICD-10 - G89.4) Following with pain clinic, 06/07/2025 Idiopathic peripheral neuropathy (ICD-10 - G60.9) Following with neurology. Gabapentin has not been helpful. Carbidopa has been somewhat helpful but he will see neurology for follow-up 06/07/2025 Benign prostatic hyperplasia with lower urinary tract symptoms, unspecified morphology (ICD-10 - N40.1) 06/07/2025 Spinal stenosis of lumbar region with neurogenic claudication (ICD-10 - M48.062) Pain pump in place 06/07/2025 COPD (chronic obstructive pulmonary disease) with chronic bronchitis (ICD-10 - J44.9) 06/07/2025 Personal history of nicotine dependence (ICD-10 - Z87.891) Still smoking heavily, no interest in quitting, discussed this for greater than 5 minutes. 06/07/2025 Routine medical exam (ICD-10 - Z00.00) Up-to-date with low-dose CT and out of range for colon screening. Vaccines up-to-date. No recent falls. Depression screening negative. 3/3 word recall. HRA reviewed is healthcare surrogate Plan Of Treatment Treatment Notes Assessment Notes Immunization(s) administered Checkup flu shot today. No other labs needed Hyperlipemia, idiopathic familial Lipids previously well-controlled, reviewed labs with patient. Essential hypertension Blood pressure un loco good control Acquired hypothyroidism Clinically euthy roid. Reviewed TSH from last visit. Labs also normal Chronic pain syndrome Following with [facility] clinic, Idiopathic peripheral neuropathy Followi ng with neurology. Gabapentin has not been helpful. Carbidopa has been somewhat helpful but he will see neurology for follow-up Spinal stenosis of lumbar re gion with neurogenic claudication Pain pump in place Personal history of nicotine dependence Still smoking heavily, no interest in quitting, discussed this for greater than 5 minutes. Routine medical exam Up-to-date with low-dose CT and out of range for colon screening. Vaccines up-to-date. No recent falls. Depression screening negative. 3/3 word recall. HRA reviewed is healthcare surrogate Next Appt Details Follow Up: 2 months, Reason: Provider Name:Gregorio Ware, 08/09/2025 12:00:00 PM, [address] [facility] [address] [facility], [address], [place], [address], Progress Notes * Naun DAVE LDOB:1950 (75 yo M)Acc No.[id number]:06/07/2025 Progress Notes Patient: Naun CORNEJO Provider: Yumiko Ware MD :1950 A ge:75 Y S ex:Male Date:06/07/2025 Address:[address] [facility], [id number] Subjective: * Chief Complaints: * 1 . F/u 3 mth. * HPI: g en: Here for 3-month checkup and his Medicare annual wellness visit. Overall feels pretty good, has had some problems with his pain pump and this has been a little bit distressing to him but he is still very functional and gets around quite a bit. No changes in plan, does need refill on tamsulosin. Is following up with neurology for his restless leg/jerking in the next couple of weeks. * ROS: F UNCTIONAL STATUS: ADLS I ndependent for all ADL/IADL. * Medical History: C hronic back pain [...] Pain pump insertion 11/2020, Pain pump replacement 11/2024, cholecystectomy 2024. * Hospitalization/Major Diagno stic Procedure: c hest [...] *Please review and pick correct strength-formulation from Vixar options. If intended option is not shown, discontinue and re-order from Quick Search*, Taking Omeprazole 20 MG Capsule Delayed Release 1 cap(s) orally once a day prn , Taking Lisinopril 20 MG Tablet 1/2 tab(s) orally once a day , Taking Tamsulosin HCl 0.4 MG Capsule 2 capsules orally once a day , Taking Euthyrox 125 MCG Tablet 1 tablet in the morning on an empty stomach Orally Once a day , Taking Carbidopa-Levodopa 25-100 MG Tablet 1 tablet as needed Orally at bedtime , Discontinued Omeprazole 20 MG Capsule Delayed Release 1 cap(s) orally once a day , Discontinued MOMETASONE FUROATE TOPICAL 0.1% CREAM 1 JODY APPLIED TOPICALLY ONCE A DAY , Notes to Pharmacist: *Please review for potential replacement for e-prescription and drug interaction check*, Medication List reviewed and reconciled with the patient * Allergies: L opid: increase in liver enzymes, Neurontin, Cymbalta: confusion, Lyrica: confusion. Objective: * Vitals: N urse: KJ, Pain: 7, Temp: 97.5, RR: 18, HR: 100, BP: 140/70, Ht: 74, Wt: 201, BMI:25.8. * Examination: G eneral Examination: General P leasant and Cooperative, NAD on RA,. Heart: R egular Rate and Rhythm, no murmur, rubs or gallops. Lungs: L CTAB, No wheezes, crackles or rhonchi, Good air movement,. Extremities: n ormal ROM,, no clubbing, no edema. Psych N ormal Mood/Affect. Assessment: * Assessment: 1. H yperlipemia, idiopathic familial - E78.5 (Primary) 2 . I mmunization(s) administered - Z23 3 . E ssential hypertension - I10 4 . A cquired hypothyroidism - E03.9 5 . C hronic pain syndrome - G89.4 6. I diopathic peripheral neuropathy - G60.9 7 . B enign prostatic hyperplasia with lower urinary tract symptoms, unspecified morphology - N40.1 8 . S lore stenosis of lumbar region with neurogenic claudication - M48.062 9 . C OPD (chronic obstructive pulmonary disease) with chronic bronchitis - J44.9 1 0. P ersonal history of nicotine dependence - Z87.891 1 1. R outine medical exam - Z00.00 Plan: * Treatment: 2. I mmunization(s) administered Notes: Checkup flu shot today. No other labs needed 3. E ssential hypertension Notes: Blood pressure under good control 4. A cquired hypothyroidism Notes: Clinically euthyroid. Reviewed TSH from last visit. Labs also normal 5. C hronic pain syndrome Notes: Following with pain clinic, 6. I diopathic peripheral neuropathy Notes: Following with neurology. Gabapentin has not been helpful. Carbidopa has been somewhat helpful but he will see neurology for follow-up 7. S lore stenosis of lumbar region with neurogenic claudication Notes: Pain pump in place 8. P ersonal history of nicotine dependence Notes: Still smoking heavily, no interest in quitting, discussed this for greater than 5 minutes.? 9. R outine medical exam Notes: Up-to-date with low-dose CT and out of range for colon screening. Vaccines up-to-date. No recent falls. Depression screening negative. 3/3 word recall. HRA reviewed is healthcare surrogate * Immunizations: Fluzone High Dose : 0.5 mL (Route: Intramuscular) given by AMARILYS Infante on Right Deltoid (Immunization(s) administered) * Procedure Codes: 9 0662 Influenza High Dose Vaccine >65 Years Old, G0008 ADMINISTRATION-FLU VACCINE MEDICARE ONLY, G2211 Complex e/m visit add on, G0439 ANNUAL WELLNESS VST; PPS SUBSQT VST, 1170F FUNCTIONAL STATUS ASSESSMENT, 97373 BEHAV CHNG SMOKING 3-10 MIN, 1123F ADVANCED DIRECTIVE - HAS A LIVING WILL, G8420 BMI documented as normal, no follow up required., G8510 NEGATIVE SCREENING F/U NOT REQUIRED, G9902 Pt scrn tbco and id as user, G0030 PET MYOCARD IMAG FLW PREV PET; 1, G8752 Most recent systolic blood pressure < 140mmhg, G8754 Most recent diastolic blood pressure < 90mmhg, G9744 PATIENT NOT ELIG D/T ACTIVE DX HTN * Follow Up: 2 months * * Sign off status: Completed true * Provider: Yumiko Ware MD Date: Generated for Maria Teresai ng/Lollyg/eTransmitting on: 09/04/2024 08:43 AM EST History and Physical Notes * HPI (History of Present Illness) Category Sub-Category Detail Notes Category Not es gen Here for 3-month checkup and his Medicare annual wellness visit. Overall feels pretty good, has had some problems with his pain pump and this has been a little bit distressing to him but he is still very functional and gets around quite a bit. No changes in plan, does need refill on tamsulosin. Is following up with neurology for his restless leg/jerking in the next couple of weeks Examination Category Sub-Category Detail Notes Category Not es General Examination Heart: Regular Rate and Rhythm, no murmur, rubs or gallops Lungs: LCTAB, No wheezes, c rackles or rhonchi, Good air movement, Extremities: normal ROM,, no club nara, no edema General Pleasant and Coopera tive, NAD on RA, Psych Normal Mood/Affect
--- NOTE | 2025-07-05 08:35 | XR_ITS ---
FINAL REPORT CLINICAL HISTORY: MRI Compatability Pain pump placement chronic lower back pain COMPARISON: None FINDINGS: No fracture is identified. The lumbar vertebral bodies are normal in height. The patient has undergone a prior cervical fusion at the L5-S1 level. The pain pump noted on this exam enters the canal at the L3-4 level, with its tip at the T12 level. The reservoir is 11 degrees from vertical relative to the lumbar vertebral axis. Disc spaces are well-preserved. Alignment is normal. IMPRESSION: Pain pump placement as described. Reviewed, Interpreted and Dictated by Derek Valles MD Transcribed by Kyra Duran Authenticated and [facility]
--- OUTSIDE RECORDS SUMMARY | 2025-07-05 08:43 | XMS_ITS | Patient Health Record ---
Author Organization [facility] Address [address] [place] [address] Care Team Providers Care Supervisor Type Bar And Segment Name Role Phone Gregorio Ware Primary Care [...] Notes THYROID PANEL WITH TSH (7444 ) Reviewed date:02/03/2025 10:45:52 AM Interpretation: Performing Lab:СЕРГЕЙ [employer] [id number] [address], Clear Blue [id number] Colt Ng Notes/Report: NON-FASTING; NON-FASTING; NON-FASTING T3 UPTAKE 38 22-35 % T4 (THYROXINE), TOTAL 7.2 4.9-10.5 mcg/dL FREE T4 INDEX (T7) 2.7 1.4-3.8 TSH 0.61 0.40-4.50 mIU/L LIPID PANEL, STANDARD (7600) Reviewed date:02/03/2025 10:45:52 AM Interpretation: Performing Lab:СЕРГЕЙ [employer] [id number] [address], Clear Blue TechnologiesDblqDB[address] Colt Ng Notes/Report: NON-FASTING; NON-FASTING; NON-FASTING CHOLESTEROL, [...] of LDL-C. Bill SS et al. CATHIE. 2013;310(33): 1710-2150 (http://education.[email or web address]/faq/ACA128) CHOL/HDLC RATIO 3.1 <5.0 (calc) NON HDL CHOLESTEROL 73 <130 mg/dL (calc) For patients with diabetes plus 1 major ASCVD risk factor, treating to a non-HDL-C goal of <100 mg/dL (LDL-C of <70 mg/dL) is considered a therapeutic option. COMPREHENSIVE METABOLIC PANE Petros (74653) Reviewed date:02/03/2025 10:45:53 AM Interpretation: Performing Lab:СЕРГЕЙ [employer] [id number] [facility], Anton MacdonaldFevxJL[address] Colt Ng Notes/Report: NON-FASTING; NON-FASTING; NON-FASTING GLUCOSE [...] Reviewed date:02/03/2025 10:45:53 AM Interpretation: Performing Lab:СЕРГЕЙ, [employer] [address], Clear Blue TechnologiesOuqjTT[address] Colt Ng Notes/Report: NON-FASTING; NON-FASTING; NON-FASTING MAGNESIUM 2.3 1.5-2.5 mg/dL CBC (INCLUDES DIFF/PLT) (639 9) Reviewed date:02/03/2025 10:45:53 AM Interpretation: Performing Lab:СЕРГЕЙ, [employer] [address], Clear Blue TechnologiesKgmbXP[address] Colt Ng Notes/Report: NON-FASTING; NON-FASTING; NON-FASTING WHITE [...] MPV 10.1 7.5-12.5 fL ABSOLUTE NEUTROPHILS 3114 5438-0180 cells/uL ABSOLUTE LYMPHOCYTES 7873 401-1808 cells/uL ABSOLUTE MONOCYTES 281 200-950 cells/uL ABSOLUTE EOSINOPHILS 78 15-500 cells/uL ABSOLUTE BASOPHILS 41 0-200 cells/uL NEUTROPHILS 67.7 LYMPHOCYTES 23.6 MONOCYTES 6.1 EOSINOPHILS 1.7 BASOPHILS 0.9 FERRITIN (457) Reviewed date:02/03/2025 10:45:53 AM Interpretation: Performing Lab:СЕРГЕЙ, [employer] [address], Nirmidas BiotechUqbxGV[address] Colt Ng Notes/Report: NON-FASTING; NON-FASTING; NON-FASTING FERRITIN 116 24-380 ng/mL PSA, TOTAL (5363) Reviewed date:02/03/2025 10:45:53 AM Interpretation: Performing Lab:CB, [facility]Anton Ipmq4692 [facility], Anton MacdonaldVvpuJW[address] Colt Ng Notes/Report: NON-FASTING; NON-FASTING; NON-FASTING PSA, [...] date:02/04/2025 11:03:23 AM Interpretation: Performing Lab: Notes/Report: CT Scan : Chest, Lung Cancer Screening Reviewed date:11/11/2024 12:41:24 PM Interpretation: Performing Lab: Notes/Report: Reason For Referral Reason Needs low-dose CT sc an Diagnosis 1 Tobacco dependence ( F17.200) Referral Organization [facility] Referring Provider First Name Gregorio Referring Provider Last Name Chaz Referring Provider Speciality Internal M edicine Referred Organization [facility] Referred Address [address] [place] [phone], Referred Provider Specialty Diagnostic R adiology General Notes Jennifer Ferrer 2024 11:28:53 AM >sent to [facility] to schedule Referral Priority Routine Referral Appointment Date 11/05/2024 Reason Gallbladder ultrasou nd and appointment with Dr. Izquierdo Diagnosis 1 Symptomatic cholelit hiasis (K80.20) Referral Organization [facility] Referring Provider First Name Gregorio Referring Provider Last Name Chaz Referring Provider Speciality Internal M edicine Referred Organization [facility] Referred Address [address] [place] [phone], Referred Provider Specialty General Surg augustine General Notes Jennifer Ferrer 2024 10:13:27 AM >sent to [facility] to scheduled u/S Referral Priority Routine Referral Appointment Date 02/03/[address] Barbosa - Diagnosis 1 Restless leg syndrom e (G25.81) Referral Organization [facility] Referring Provider First Name Gregorio Referring Provider Last Name Chaz Referring Provider Speciality Internal M edicine Referred Organization [facility] Referred Address [address] [facility], [place] Referred Provider Specialty Neurology General Notes NabilJennifer 2024 12:02:54 PM >faxed to Dr. Barbosa Referral Priority Routine Referral Appointment Date 06/21/2025 Medications Medication SIG (Take, Route, Frequency, Duration) Notes Start Date End Date Status Lisinopril 20 MG 1/2 tab(s) orally once a day; Duration: 90 days Active fentaNYL pain pump *Pleas ronak review and pick correct strength-formulation from Curriculet options. If intended option is not shown, discontinue and re-order from Quick Search* Active Omeprazole 20 MG 1 cap(s) orally once a day prn; Duration: 90 Active Carbidopa-Levodopa 25-100 MG 1 tablet as needed Orally at bedtime; Duration: 30 days 03/01/2025 Active Euthyrox 125 MCG 1 tablet in the morning on an empty stomach Orally Once a day; Duration: 90 days Active Tamsulosin HCl 0.4 MG Take 2 capsules by mouth once daily; Duration: 90 Active Immunizations Vaccine Route Administration Date Status Comme nts Fluvirin--Influenza vaccine 3+ year IM Intramuscular 05/21/2014 Administered Influenza (Fluzone)--Medicare only IM Intramuscular 07/29/2015 Administered Influenza (Fluzone)--Medicare only IM Intramuscular 05/07/2016 Administered Prevnar PCV-13 (Pneumococcal conjugate 13) IM Intramuscular 08/06/2016 Administered Influenza (Fluzone)--Medicare only IM Intramuscular 05/06/2017 Administered Pneumovax 23 IM Intramuscular 03/31/2018 Administered Fluzone High Dose IM Intramuscular 07/03/2019 Administered Fluzone High Dose IM Intramuscular 07/06/2020 Administered Fluzone High Dose IM Intramuscular 05/08/2021 Administered Fluzone High Dose IM Intramuscular 05/14/2022 Administered Fluzone High Dose IM Intramuscular 05/13/2023 Administered Fluzone High Dose IM Intramuscular 06/15/2024 Administered Fluzone High Dose IM Intramuscular 06/07/2025 Administered Covid Moderna Unknown 10/27/2020 Administered Covid Moderna Unknown 09/29/2020 Administered Social History Tobacco Use: Social History [...] Problem Status W/U Status Risk Notes Problem Generalized anxiety disorder (26344616) Generalized anxiety disorder (F41.1) Active confirmed Problem Chronic pain syndrome (395639530) Chronic pain syndrome (G89.4) Active confirmed Problem Diplopia (48258329) Diplopia (H53.2) Active con firmed Problem Sciatica (89626693) Lumbago with sciatica, left side (M54.42) Active confirmed Problem Nicotine dependence (43986859) Personal history of nicotine dependence (Z87.891) Active confirmed Problem Essential hypertension (37610899) Essential hypertension (I10) Active confirmed Problem Hyperlipidemia (53791785) Hyperlipemia, idiopathic familial (E78.5) Active confirmed Problem Gastroesophageal reflux disease (586521170) GERD without esophagitis (K21.9) Active confirmed Problem Tubular adenoma of colon (200639148) Tubular adenoma of colon (D12.6) Active confirmed Problem Restless legs syndrome (33457865) Restless leg syndrome (G25.81) Active confirmed Problem Idiopathic peripheral neuropathy (60469369) Idiopathic peripheral neuropathy (G60.9) Active confirmed Problem Sleep disturbance (58342301) Sleep disturbance (G47.9) Active confirmed Problem Chronic obstructive bronchitis (disorder) (963107823) 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) Active confirmed Problem Acquired hypothyroidism (673849767) Acquired hypothyroidism (E03.9) Active confirmed Problem Dysthymia (16472168) Dysthymia (F34.1) Active confirmed Problem Pulmonary nodule (425911044) Pulmonary nodule (R91.1) Active confirmed Problem Lumbar spinal stenosis (88631802) Lumbar spinal stenosis (M48.06) Active confirmed Problem Lower urinary tract symptoms due to benign prostatic hypertrophy (29050405781380) Benign prostatic hyperplasia with lower urinary tract symptoms, unspecified morphology (N40.1) Active confirmed Problem Tobacco dependence (23611685) Tobacco dependence (F17.200) Active confirmed Problem Adult health examination (939273984) Healthcare maintenance (Z00.00) Active confirmed Problem Chronic kidney disease stage 2 (disorder) (915605076) CKD (chronic kidney disease) stage 2, GFR 60-89 ml/min (N18.2) Active confirmed Problem Drug-induced constipation (54201705) Drug induced constipation (K59.03) Active confirmed Problem Neurogenic claudication (996965078) Spinal stenosis of lumbar region with neurogenic claudication (M48.062) Active confirmed Problem Cholelithiasis without obstruction (28926838) Symptomatic cholelithiasis (K80.20) Active confirmed Vital Signs Heart Rate 100 /min 06/07/2025 Temperature 97.5 degrees Fahrenheit 06/07/2025 Blood pressure diastolic 70 mm Hg 06/07/2025 Height 74 in 06/07/2025 Blood pressure systolic 140 mm Hg 06/07/2025 Weight 201 lbs 06/07/2025 BMI 25.8 kg/m2 06/07/2025 Encounters Encounter Location Date Provider Diagnosis [facility] [address] [place] [address] 11/28/2024 Provider Migration Essential hypertension I10 and GERD without esophagitis K21.9 [facility] [address] [place], [place] [id number] 10/19/2024 Gregorio Ware Chronic pain syndrom e G89.4 ; Benign prostatic hyperplasia with lower urinary tract symptoms, unspecified morphology N40.1 ; Essential hypertension I10 ; Tobacco dependence F17.200 ; GERD without esophagitis K21.9 and Healthcare maintenance Z00.00 [facility] [address] [place], [place] [id number] 02/01/2025 Gregorio Ware Hyperlipemia, idiopathic familial E78.5 ; Acquired hypothyroidism E03.9 ; Essential hypertension I10 ; Benign prostatic hyperplasia with lower urinary tract symptoms, unspecified morphology N40.1 ; Restless leg syndrome G25.81 and Symptomatic cholelithiasis K80.20 [facility] [address] [facility] [place] [address] 03/01/2025 Gregorio Besson Restless leg syndrom e G25.81 ; Sleep disturbance G47.9 and CKD (chronic kidney disease) stage 2, GFR 60-89 ml/min N18.2 [facility] [address] [facility] [place], [place] [address] 06/07/2025 Gregorio Besson Immunization(s) administered Z23 ; Hyperlipemia, idiopathic familial [...] dependence Z87.891 and Routine medical exam Z00.00 [facility] [address] [address] 07/20/2024 Gregorio Besson [facility] [address] [place] [address] 09/02/2024 Gregorio Besson [facility] [address] [facility] [address] [place], [place] [address] 10/02/2024 Gregorio Besson [facility] [address] [place], [place] [address] 10/19/2024 Gregorio Besson History of nicotine dependence Z87.891 Assessments Encounter Date Diagnosis (ICD Code) Assessment Notes Treatment Notes Treatment Clinical Notes Section Notes 03/01/2025 Restless leg syndrome (ICD-10 - G25.81) Normal labs, no metabolic cause for restless leg, start low-dose Sinemet. Discussed rationale for this medicine with patient. Given his concomitant sleep disturbance and his somewhat worrisome upper extremity symptoms we will have neurology evaluate to see if there might be other components of neurologic issues namely parkinsonism. Also will schedule with neurology/sleep med physician to get sleep study evaluated given his history of very poor sleep 03/01/2025 Sleep disturbance (ICD-10 - G47.9) 10/19/2024 Chronic pain syndrome (ICD-10 - G89.4) [...] note I will review all labs personally 06/07/2025 Hyperlipemia, idiopathic familial (ICD-10 - E78.5) Lipids previously well-controlled, reviewed labs with patient. 06/07/2025 Immunization(s) administered (ICD-10 - Z23) Checkup flu shot today. No other labs needed 06/07/2025 Essential hypertension (ICD-10 - I10) Blood pressure under good control 02/01/2025 Essential hypertension (ICD-10 - I10) 10/19/2024 Essential hypertension (ICD-10 - I10) BP slightly elevated in clinic today but has been normotensive with systolics in the 120's at home. Continue lisinopril 10 mg daily. 03/01/2025 CKD (chronic kidney disease) stage 2, GFR 60-89 ml/min (ICD-10 - N18.2) Technically he has CKD stage II, discussed with patient, he does not take NSAIDs, does not drink alcohol, discussed hydration and continued monitoring. 11/28/2024 Essential hypertension (ICD-10 - I10) 10/19/2024 Tobacco dependence (ICD-10 - F17.200) 2-3 ppd, no interest in cessation. Low dose CT due and ordered today. 02/01/2025 Benign prostatic hyperplasia with lower urinary tract symptoms, unspecified morphology (ICD-10 - N40.1) Stable, check labs 06/07/2025 Acquired hypothyroidism (ICD-10 - E03.9) Clinically euthyroid. Reviewed TSH from last visit. Labs also normal 06/07/2025 Chronic pain syndrome (ICD-10 - G89.4) Following with pain clinic, 02/01/2025 Restless leg syndrome (ICD-10 - G25.81) Sounds he has restless leg. Check ferritin and magnesium along with other labs. Follow-up 1 month, trial of medication if he wishes at that point if we cannot find any metabolic issues 10/19/2024 GERD without esophagitis (ICD-10 - K21.9) Worsening gerd symptoms recently, no dysphagia, no red flag symptoms. Done well with omeprazole in the past. Will start trial of omeprazole and follow up on symptoms at next visit. 11/28/2024 GERD without esophagitis (ICD-10 - K21.9) 10/19/2024 Healthcare maintenance (ICD-10 - Z00.00) Low dose CT due and ordered today. 02/01/2025 Symptomatic cholelithiasis (ICD-10 - K80.20) Discussed with patient that surgery referral would be more appropriate, will get ultrasound and then make referral to [facility] surgery at his request. I reviewed ER notes available from emergency department. Reviewed labs, reviewed discharge plan, personally reconciled medication. 06/07/2025 Idiopathic peripheral neuropathy (ICD-10 - G60.9) [...] up-to-date. No recent falls. Depression screening negative. 10/26 word recall. HRA reviewed is healthcare surrogate Plan Of Treatment Pending Test Test Name [...] 07/06/2019 Next Appt Details Provider Name:Gregorio Ware, 08/09/2025 12:00:00 PM, [address] [facility] [address] [facility], [address], [place], [address], Insurance Providers Payer Name Payer Address Payer Phone Subscriber Number Group Number Insured Name Patient Relationship to Insured Coverage Start Date Coverage End Date [place] [address] [place] [address] [phone] [id number] Naun Dave Self - patient is the insured DANIEL Medicare Supplement [address] [address] [place] [address] [id number] Naun Dave Self - patient is the insured [employer] [address] [place] [address] [address] [place] [address] [phone] ACL Naun Dave Self - patient is [...] pump insertion 11/2020 Pain pump replacement 11/2024 cholecystectomy 2024 Hospitalization History Reason Date(Month/Year) back surgery chest pains
--- OUTSIDE RECORDS SUMMARY | 2025-07-05 08:43 | XMS_ITS | Clinical Summary ---
[facility] Address [address] [place] [id number] Care Team Providers Care Spinner Frame Name Role Phone Gregorio Ware MD Primary Care Provider [phone] Social History Tobacco Use Types Packs/Day Years Used Date Smoking Tobacco: Never Assessed Abuse Screen Answer Date Recorded Unsafe at Home or Work/School Not on file Feels Threatened by Someone? Not on file 04/2023 Does Anyone Keep You from Co ntacting Others or Doint Things Outside the Home? Not on file 06/03/2023 Physical Sign of Abuse Present Not on file 1 Housing Stability Answer Date Recorded Current Living Arrangements Not on file 04/2023 Potentially Unsafe Housing Conditions Not on lydia e 06/03/2023 Family and Community Support Answer Flaco e Recorded Help with Day-to-Day Activities Not on file 06/03/2023 Lonely or Isolated Not on file 06/03/2023 Employment Answer Date Recorded Do you want help finding or keeping work or a remedios b? Not on file 06/03/2023 Disabilities Answer Date Recorded Concentrating, Remembering, or Making Decisions Difficulty Not on file 06/03/2023 Doing Errands Independently Difficulty Not on fi le 06/03/2023 Education Answer Date Recorded Help with school or training? Not on file Preferred Language Not on file 06/03/2023 Sex and Gender Information Value Date Recorded Sex Assigned at Not on file Legal Sex Male 10:49 AM EDT Gender Identity Not on file Sexual Orientation Not on file Plan of Treatment Health Maintenance Due Date Last Done Comments TDAP/TD VACCINES (1 - Tdap) 02/01[birth year]1968 COLOGUARD 1994 COLON CANCER SCREENING 5 YEAR SIGMOIDOSCOPY 1994 COLONOSCOPY 1994 [address] CANCER SCREENING 1994 CT COLONOGRAPHY 1994 FECAL OCCULT BLOOD TEST 1994 FIT Testing (1 year) 1994 Pneumococcal Vaccine 50+ (1 of 1 - PCV) 1999 ZOSTER VACCINE (1 of 2) 1999 ANNUAL PHYSICAL 06/23/2018 HEPATITIS C SCREENING 06/23/2018 PT PLAN OF CARE 06/23/2018 RSV Vaccine - Adults (1 - 1-dose 75+ series) INFLUENZA VACCINE 03/26/2025 COVID-19 Vaccine (1 - 2023-25 season) 2025 [place] [address] MEDICARE A & B Member Subscriber Plan / Payer (Ef fective 2011-Present) Name:Naun Dave Member ID:[id number] Relation to Subscriber:Self Name:Naun Dave Subscriber ID:[id number] Payer ID:[id number] Group ID:Not on file Type:Not on file Address: [address] Care Teams Spinner Frame Relationship Specialty Start Date End Date Gregorio Ware MD [address] [facility] [address] [place] [address] PCP - General Adolescent Medicine 06/23/18
== END 2025-07-05 23:59 | disposition home or self-care (01) ==
LOC: RAD 08:33
PROVIDERS: PCP Internal Medicine Adolescent Medicine; Visit Provider Specialist
DX: G89.4 Chronic pain syndrome (principal); M54.16 Radiculopathy, lumbar region; Z96.89 Presence of other specified functional implants
CPT/HCPCS: 72100

== ENCOUNTER 2025-07-06 12:37 | Outpatient (CLI) | payer MEDICARE, OTHER, SELFPAY ==
--- NOTE | 2025-07-06 13:00 | MR_ITS ---
FINAL REPORT TECHNIQUE: Multiplanar MR without contrast CLINICAL HISTORY: chronic pain. sudden jerking spasms at night. COMPARISON: none FINDINGS: Limited images of the posterior fossa are unremarkable. Alignment is normal. Cervical spinal cord shows normal signal and contour. C2-3: Moderate-sized broad-based central disc protrusion. Mild central canal stenosis. Mild neural foraminal narrowing. C3-4: Mild annular disc bulge. Ligamentum flavum hypertrophy. Mild central canal stenosis. Mild neural foraminal narrowing. C4-5: Mild annular disc bulge and facet overgrowth. Moderate left and mild right neural foraminal narrowing. C5-6: Mild annular disc bulge. Moderate facet arthropathy. Mild central canal stenosis. Advanced bilateral neural foraminal narrowing. C6-7: Moderate annular disc bulge. Moderate central canal stenosis, greater on the right. Severe bilateral neural foraminal narrowing. C7-T1: Minimal annular disc bulge. IMPRESSION: Multilevel canal stenosis and neural foraminal narrowing as above. Reviewed, Interpreted and Dictated by Derek Valles MD Transcribed by Latrice Richards Authenticated and [facility]
== END 2025-07-06 23:59 | disposition home or self-care (01) ==
LOC: RAD 12:38
PROVIDERS: PCP Internal Medicine Adolescent Medicine; Visit Provider Specialist
DX: M48.02 Spinal stenosis, cervical region (principal); M99.71 Connective tissue and disc stenosis of intervertebral foramina of cervical region; G89.4 Chronic pain syndrome; G95.9 Disease of spinal cord, unspecified; G25.3 Myoclonus
CPT/HCPCS: 72141